=== PATIENT | male | born 1940 | race African-American/Black ===

== ENCOUNTER → 2016-10-29 | Outpatient (CLI) | payer OTHER ==
[~2016-10-29] VITALS: Ht 185.4 cm; Wt 70.1 kg
[~2016-10-29] MED LIST: CRESTOR40 MG PO; FLONASE 0.05%50 MCG NASAL; GLUCOTROL5 MG PO; KLOR-CON 1010 MEQ PO; NORCO 5-325 TA1 EACH PO; POTASSIUM20 PO; PRILOSEC 20 MG20 MG PO; PROAIR HFA8.5 GM; TRULICITY0.75 MG/0. SUBQ; VIAGRA100 MG PO; XANAX 0.5 MG0.5 MG PO
--- NOTE | ~2016-10-29 | HPC ---
[facility] [place] [address] PAIN MANAGEMENT CONSULTATION Name: KETTY LOZADA Room #: [facility] [id number] Admission: 10/29/16 Attend Phys: Pari Ryder MD Discharge: Date of : 40 Report #: [id number] THIS REPORT FOR: //name// CC: Agapito Ryder DATE OF SERVICE: 11/25/2016 CHIEF COMPLAINT: Pain in the low back with pain down into the right hip and foot. HISTORY OF PRESENT ILLNESS: The patient is a 75-year-old gentleman who has been referred to the pain clinic for evaluation. He states that he has had some problem with his back and legs since 2008. At this juncture, he is having very sharp pain in the lower portion of his back with pain radiating down into his right hip and went down into the right foot. Pain is made worse with changes in the weather as well as when he gets in and out of the bed. He notes that medications have been helpful. He describes his discomfort as steady, shooting, cramping, aching, throbbing, pounding, and tender. He rates it as an 8/10 today. He has not had back surgery. He denies any bowel or bladder dysfunction because of this. ALLERGIES: FLOMAX. MEDICATIONS: Glucotrol 5 mg b.i.d., Trulicity 0.75 mg/0.5 mg weekly, alprazolam 0.5 mg t.i.d., ProAir 8.5 mg, Flonase 0.05% nasal spray, 50 mcg daily 2 sprays, Crestor 40 mg daily, potassium 10 mEq, Prilosec 20 mg, potassium 20 mEq, Viagra 100 mcg p.r.n., [place] 5/325 one p.o. t.i.d. p.r.n. PAST MEDICAL HISTORY: Diabetes type 2, hypercholesterolemia, GI problems, asthma, tuberculosis, colon problems, stomach problems, joint disease/arthritis, prostate cancer in 2009, ulcers. PAST SURGICAL HISTORY: Eyes, stomach, hernia repair. SOCIAL HISTORY: He is retired. He has been off work for 9 months. Smokes 2 packs of cigarettes per month, has smoked for 30 years. Denies use of alcoholic beverages. He has 2 daughters. REVIEW OF SYSTEMS: Decreased appetite, fatigue, weakness, eye disease, glaucoma/cataracts, shortness of breath, frequent urination. PHYSICAL EXAMINATION: Blood pressure 136/91, pulse 78, respiratory rate 16, room air saturation 100, height 6 feet 1 inch, weight 154 pounds, BMI is 20. The patient has pain and discomfort which is radiating down the right leg. [address] [address] PAIN MANAGEMENT CONSULTATION Name: KETTY LOZADAWAYNE [id number] Admission: 10/29/16 Attend Phys: Pari Ryder MD Discharge: Date of : 40 Report #: [id number] Positive straight leg raise. The patient walks with an antalgic gait. Note some cramping, aching, has pain down into the right foot. He has not fallen in the last 3 months. IMPRESSION: 1. Lumbar radiculopathy, L4-L5 distribution on the right. 2. Type 2 diabetes, controlled with neuropathy. 3. Acute bronchitis history. 4. Right knee pain. 5. Chronic back pain. RECOMMENDATIONS: We discussed treatment options with the patient. Risks and benefits of an epidural steroid injection were discussed. A model was used to indicate the area of probable pathology. The patient elects to undergo treatment and will return on 11/03/2016 at which time an epidural steroid injection will be performed. We would like to thank you for letting us participate in his care. We hope he continues to improve. <ELECTRONICALLY SIGNED> By: Pari Ryder MD 11/26/16 0844 [id number] 0133 Pari Ryder MD /[facility]
[2016-10-29 09:07] VITALS: BP 136/91
== END | disposition home or self-care (01) ==
LOC: PAIN 06:55
DX: M54.16 Radiculopathy, lumbar region (principal); E11.40 Type 2 diabetes mellitus with diabetic neuropathy, unspecified; J20.9 Acute bronchitis, unspecified; G89.29 Other chronic pain; E78.00 Pure hypercholesterolemia, unspecified; J45.909 Unspecified asthma, uncomplicated; M19.90 Unspecified osteoarthritis, unspecified site; Z85.46 Personal history of malignant neoplasm of prostate; Z88.8 Allergy status to other drugs, medicaments and biological substances; F17.210 Nicotine dependence, cigarettes, uncomplicated

== ENCOUNTER → 2016-11-03 | Outpatient (CLI) | payer OTHER ==
[~2016-11-03] VITALS: Ht 185.4 cm; Wt 71.5 kg
--- NOTE | ~2016-11-03 | HPC ---
[facility] [address] [address] [place] [address] PAIN MANAGEMENT CONSULTATION Name: KETTY LOZADA Room #: REG Corey SalazarMarc#: [id number] Admission: 11/03/16 Attend Phys: Pari Ryder MD Discharge: Date of : 40 Report #: [id number] THIS REPORT FOR: //name// CC: Agapito Ryder DATE OF SERVICE: 11/03/2016 FOLLOWUP COMPLAINT: Here for the epidural steroid injection. FOLLOWUP HISTORY: The patient is a 75-year-old gentleman who has been seen in the pain clinic because of lumbar radicular pain with pain radiating down in his lower back to the right hip and down into his right foot. He continues to have pain and discomfort, which he describes as uncomfortable. He is experiencing shooting, cramping, aching pain. He rates it as a 9/10 at this juncture. He notes that it is worse during changes in the weather. He is not sure of anything that significantly alleviates the pain. PHYSICAL EXAMINATION: Blood pressure 152/72, pulse 80, respiratory rate 20, room air saturation 99%. Height 6 feet 1 inch, weight 157 pounds, BMI is 20. The patient has pain and discomfort, which is radiating down in the L5-S1 dermatomal distribution with the right leg to involve his foot. Notes sensory changes of numbness, weakness involving the right leg. IMPRESSION: 1. Lumbar radiculopathy involving the right leg, L5-S1 distribution. 2. Diabetes. 3. History of prostate cancer. 4. Asthma. 5. History of ulcers. RECOMMENDATIONS: We discussed treatment options with the patient. Risks and benefits of an epidural steroid injection, which could include but are not limited to infection, increased muscle soreness, headache, bleeding, muscle damage, nerve trauma. The patient elects to proceed. PROCEDURE NOTE: The patient was placed in the prone position. Fluoroscopy was used to identify the right L5-S1 paraspinal area. A 0.25% bupivacaine was infiltrated. A 17-gauge Tuohy with loss of resistance technique was used to gain access to the epidural space. There was no CSF, heme or paresthesia. Total of 80 mg Depo-Medrol, 40 mg triamcinolone and 2 mL of 0.25% bupivacaine was injected. The patient's pain decreased from 9 to 1 at the time of discharge. A total of 10 seconds fluoroscopy time was [place] [address] PAIN MANAGEMENT CONSULTATION Name: KETTY LOZADA Room #: REG CLCorey SalazarMarc#: [id number] Admission: 11/03/16 Attend Phys: Pari Ryder MD Discharge: Date of : 40 Report #: [id number] thank you for letting us participate in his care. We hope he continues to improve. <ELECTRONICALLY SIGNED> By: Pari Ryder MD 11/26/16 0846 1619 0406 Pari Ryder MD /[facility]
[2016-11-03 08:59] VITALS: BP 152/72
== END | disposition home or self-care (01) ==
LOC: PAIN 07:07
DX: M54.16 Radiculopathy, lumbar region (principal); E11.9 Type 2 diabetes mellitus without complications; J45.909 Unspecified asthma, uncomplicated; Z85.46 Personal history of malignant neoplasm of prostate; F17.200 Nicotine dependence, unspecified, uncomplicated

== ENCOUNTER → 2016-12-01 | Outpatient (CLI) | payer OTHER ==
[~2016-12-01] VITALS: Ht 185.4 cm; Wt 72.8 kg
--- NOTE | ~2016-12-01 | H ---
[facility] [place] [address] [address] HISTORY AND PHYSICAL Name: KETTY LOZADA Room #: REG RONDA SalazarMarc#: [id number] Admission: 12/01/16 Attend Phys: Pari Ryder MD Discharge: Date of : 40 Report #: [id number] THIS REPORT FOR: //name// CC: Agapito Ryder DATE OF SERVICE: 12/01/2016 FOLLOWUP COMPLAINT: Still having pain down the back of my leg, down into my right foot. HISTORY OF PRESENT ILLNESS: The patient is a 75-year-old gentleman who has been seen in the pain clinic because of lumbar radiculopathy. He has pain in the posterior portion of his right leg with radiation down into his right foot. He states that he has been told in the past that he has had some "pieces of bone" that are fallen down in the lower portion of his back and causing this pain. He has not had any complications from the procedure. He was scheduled to undergo an MRI; this was last week. He was unable to get the MRI because of difficulty with IV access. The patient felt that they had stuck him enough times and he left. PHYSICAL EXAMINATION: The patient continues to have pain and discomfort in the lower portion of his back with pain radiating down in the L5-S1 dermatomal distribution. Continues to rate his pain as probably an 8/10. IMPRESSION: 1. Lumbar radiculopathy in the L5-S1 dermatomal distribution on the right. 2. Diabetes. 3. Asthma. 4. Ulcers. 5. History of prostate cancer. 6. 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 7. Hernia repair in 2017. RECOMMENDATIONS: We discussed treatment options with the patient. At this juncture, I think it would be important to get an MRI to see what the structure is in the lower portion of his back. He will try to get an MRI in the near future. Hopefully, they are able to successfully get an IV without causing him too much problem. He will follow up in the pain clinic. We would like to thank you for letting us participate in his care. We hope he continues to improve. <ELECTRONICALLY SIGNED> By: Pari Ryder MD 12/03/16 0825 1245 1331 Pari Ryder MD /[facility]
[2016-12-01 09:53] VITALS: BP 143/71
== END ==
LOC: PAIN 07:32
DX: M54.16 Radiculopathy, lumbar region (principal); E11.9 Type 2 diabetes mellitus without complications; J45.909 Unspecified asthma, uncomplicated

== ENCOUNTER 2016-12-18 17:23 | Inpatient (IN) | payer OTHER ==
[~2016-12-18] VITALS: Ht 185.4 cm; Wt 77.1 kg
--- NOTE | ~2016-12-18 | HC ---
[facility] [place] [address] CONSULTATION Name: KETTY LOZADA Room #: 426-P ADM IN M.R.#: [id number] Admission: 12/18/16 Attend Phys: Richard Cisneros MD Discharge: Date of : 40 Report #: [id number] THIS REPORT FOR: //name// CC: Richard Murphy DATE OF SERVICE: 12/18/2016 REFERRING PROVIDER: Richard Cisneros MD. REASON FOR CONSULTATION: Abdominal pain. HISTORY OF PRESENT ILLNESS: The patient is a 75-year-old male who was transitioned to [facility] from [facility] secondary to left flank and lower abdominal pain with findings on CT scan of an obstructing yet left ureteral stone. The patient does have left-sided hydronephrosis secondary to this, but also found was dilated small bowel to the distal small bowel concerning for small-bowel obstruction. The patient does have a history of esophageal and gastric cancer status post open esophagectomy, partial gastrectomy with reconstruction in 1973 as well as prostate cancer status post prostatectomy in 2008. In addition, he underwent an open right inguinal hernia repair with mesh in the past few months as well. The patient denied any nausea or vomiting, has been tolerating p.o. intake with no obstructive symptoms as he has continued to pass flatus and have bowel movements. PAST MEDICAL HISTORY: Esophageal and gastric cancer status post reconstruction, diabetes, prostate cancer status post prostatectomy, anxiety, open right inguinal hernia repair, asthma, hypercholesterolemia, and GERD. MEDICATIONS: Viagra, potassium, Prilosec, Crestor, Flonase, albuterol, Xanax, dulaglutide, glipizide. ALLERGIES: FLOMAX. SOCIAL HISTORY: The patient smokes 1 pack per day and has done so for 35 years, has been drinking vodka recently and smoking marijuana. FAMILY HISTORY: Reviewed and noncontributory. REVIEW OF SYSTEMS: GENERAL: The patient denies nocturnal fevers or chills. HEENT: No change in vision, change in hearing. NECK: No swelling or difficulty swallowing. HEART: No chest pain or palpitations. LUNGS: No cough or shortness of breath. [facility] [address] [place] [address] CONSULTATION Name: KETTY LOZADA Room #: 426-P [facility] IN M.R.#: [id number] Admission: 12/18/16 Attend Phys: Richard Cisneros MD Discharge: Date of : 40 Report #: [id number] ABDOMEN: Left flank pain, but no nausea or vomiting. GENITOURINARY: Some dysuria, but no hematuria. ENDOCRINE: No polyuria or polydipsia. HEMATOLOGIC: No history of bleeding or easy bruising. EXTREMITIES: No history of weakness or limited range of motion. NEUROLOGIC: No history of syncope or near syncopal episodes. SKIN AND INTEGUMENT: No history of abnormal lesions or moles. PSYCHIATRIC: No history of anxiety or depression. PHYSICAL EXAMINATION: VITAL SIGNS: Temperature is 97.5, pulse 90, respirations 18, blood pressure 147/71. He stands 6 feet 1 inches tall and weighs 170 pounds. GENERAL: Alert and oriented, in no acute distress. HEENT: Normocephalic, atraumatic. Pupils equal, round, reactive to light. NECK: Supple, without lymphadenopathy. Trachea midline. HEART: Regular rate and rhythm. LUNGS: Clear to auscultation bilaterally. ABDOMEN: Soft, nondistended. He does have left-sided CVA tenderness. GENITOURINARY: Normal external male genitalia. EXTREMITIES: No clubbing, cyanosis or edema. NEUROLOGIC: Cranial nerves 2-12 are grossly intact. PSYCHIATRIC: Normal mood and affect. SKIN AND INTEGUMENT: No abnormal lesions or moles. LABORATORY AND X-RAY DATA: CBC shows white blood cell count of 8200, hemoglobin 13.8, platelets 251,000. He has a creatinine of 1.4. Liver function enzymes are normal. CT scan of the abdomen and pelvis shows an obstructing left ureteral stone with left hydronephrosis. There is also dilated small bowel; however, he has had an esophagectomy and gastrectomy with reconstruction and this may be normal for him, especially in light of no obstructive symptoms clinically. ASSESSMENT AND PLAN: A 75-year-old male with an obstructing left ureteral stone with left hydronephrosis and dilated small bowel that could be consistent with an ileus versus a distal small-bowel obstruction versus normal physiologic change after his esophagectomy and gastrectomy with reconstruction. The patient has no evidence of an obstructive process as he states he was tolerating regular diet, passing flatus and bowel movements throughout. At this time, it is prudent to keep him n.p.o. with IV fluid rehydration and await urology's evaluation for his obstructing ureteral stone, which may be causing a generalized ileus at this time. No need for immediate surgical intervention, although I will check a lactate just to be safe. I will perform serial abdominal exams and serial x-rays daily. [address] [address] CONSULTATION Name: KETTY LOZADA Room #: 426-P ADM IN M.R.#: [id number] Admission: 12/18/16 Attend Phys: Richard Cisneros MD Discharge: Date of : 40 Report #: [id number] I sincerely appreciate this consult. We will follow closely and leave any further recommendations in the patient's chart as appropriate. <ELECTRONICALLY SIGNED> By: Georgina Cheek MD, FACS 12/20/16 0658 0946 1852 Georgina Cheek MD, FACS /nt
[~2016-12-18 17:23] MED LIST changes: +AMITRIPTYLINE H10 M3 PO; +CIPRO500 MG PO; +FLAGYL 250 MG250 MG PO; +HYDROCODON-ACE1 EAC5 PO
[2016-12-18 18:52] VITALS: BP 152/41
[2016-12-18 20:30] VITALS: BP 147/71
[2016-12-18 21:49] LABS: ABSOLUTE NEUTROPHILS 6.6 thou/uL (1.4-8.2); BASOPHILS 0.5 % (0.0-2.0); EOSINOPHILS 0.8 % (0.0-3.0); HEMATOCRIT 41.9 % (42.0-52.0); HEMOGLOBIN 13.8 gm/dL (14.0-18.0); LYMPHOCYTES 12.2 % (24.0-44.0); MCH 29.2 pg (26.0-34.0); MCHC 32.9 g/dL (28.0-37.0); MCV 88.7 fL (80.0-100.0); MONOCYTES 5.9 % (1.0-8.0); PLATELET COUNT 251 thou/uL (150-400); POLYS 80.6 % (36.0-66.0); RBC 4.72 mil/uL (4.50-6.00); RDW 15.9 % (10.5-14.5); WBC 8.2 thou/uL (4.0-11.0)
[2016-12-18 22:08] LABS: ALKALINE PHOSPHATASE 69 U/L (46-116); ANION GAP 9 mmol/L (7-16); BUN 18 mg/dL (7-18); CHLORIDE 106 mmol/L (98-107); CHOLESTEROL 257 mg/dL (<200); CO2 26 mmol/L (21-32); CREATININE 1.4 mg/dL (0.7-1.3); GLUCOSE 147 mg/dL (74-106); HDL CHOLESTEROL 44 mg/dL (>40); LDL CHOLESTEROL 173 mg/dL (<100); POTASSIUM 4.1 mmol/L (3.5-5.1); SGOT 12 U/L (15-37); SGPT 17 U/L (30-65); SODIUM 141 mmol/L (136-145); TC:HDL 5.8 Ratio (Not establshd); TOTAL BILIRUBIN 0.5 mg/dL (<0.1-1.0); TOTAL PROTEIN 6.4 g/dL (6.4-8.2); TRIGLYCERIDE 203 mg/dL (<150); VLDL 41 mg/dL (<40)
[2016-12-18 22:10] LABS: MANUAL DIFF NO
[2016-12-18 22:13] LABS: CALCIUM 8.7 mg/dL (8.5-10.1)
[2016-12-19 04:30] VITALS: BP 151/85
[2016-12-19 07:55] VITALS: BP 132/85
[2016-12-19 16:00] VITALS: BP 131/83
[2016-12-19 16:38] LABS: CALCIUM 8.7 mg/dL (8.5-10.1); CREATININE 1.2 mg/dL (0.7-1.3)
[2016-12-19 17:22] LABS: URINE BILIRUBIN NEGATIVE (Negative); URINE BLOOD NEGATIVE (Negative); URINE COLOR YELLOW; URINE GLUCOSE-RANDOM* NEGATIVE (Negative); URINE KETONES NEGATIVE (Negative); URINE NITRITE NEGATIVE (Negative); URINE PROTEIN (DIPSTICK) NEGATIVE (Negative); URINE UROBILINOGEN 0.2 E.U./dl (0.2-1.0)
[2016-12-19 19:32] VITALS: BP 136/82
[2016-12-19 21:06] LABS: GLYCOHEMOGLOBIN (HGB A1C) 6.8 % (4.8-5.6)
[2016-12-20 03:43] VITALS: BP 141/81
[2016-12-20 04:35] LABS: ABSOLUTE NEUTROPHILS 3.1 thou/uL (1.4-8.2); BASOPHILS 0.5 % (0.0-2.0); EOSINOPHILS 1.1 % (0.0-3.0); HEMATOCRIT 38.1 % (42.0-52.0); HEMOGLOBIN 12.3 gm/dL (14.0-18.0); LYMPHOCYTES 22.7 % (24.0-44.0); MCHC 32.4 g/dL (28.0-37.0); MCV 89.5 fL (80.0-100.0); MONOCYTES 10.7 % (1.0-8.0); PLATELET COUNT 212 thou/uL (150-400); RBC 4.25 mil/uL (4.50-6.00); RDW 15.7 % (10.5-14.5); WBC 4.7 thou/uL (4.0-11.0)
[2016-12-20 04:36] LABS: MANUAL DIFF NO
[2016-12-20 04:50] LABS: CALCIUM 8.6 mg/dL (8.5-10.1); CREATININE 1.3 mg/dL (0.7-1.3)
[2016-12-20 08:26] VITALS: BP 144/81
== END 2016-12-20 13:45 | disposition left against medical advice (07) | DRG 694 ==
LOC: 4E 17:23
PROVIDERS: Internal Medicine Endocrinology, Diabetes & Metabolism; Physician Assistant; Surgery
PROC: 02HV33Z Insertion of Infusion Device into Superior Vena Cava, Percutaneous Approach (ICD-10-PCS; principal; 2016-12-18)
DX: N13.2 Hydronephrosis with renal and ureteral calculous obstruction (principal); E11.9 Type 2 diabetes mellitus without complications; F41.9 Anxiety disorder, unspecified; J45.909 Unspecified asthma, uncomplicated; E78.00 Pure hypercholesterolemia, unspecified; K21.9 Gastro-esophageal reflux disease without esophagitis; F17.210 Nicotine dependence, cigarettes, uncomplicated; Z85.028 Personal history of other malignant neoplasm of stomach; Z90.3 Acquired absence of stomach [part of]; Z85.01 Personal history of malignant neoplasm of esophagus; Z85.46 Personal history of malignant neoplasm of prostate; Z88.8 Allergy status to other drugs, medicaments and biological substances
CPT/HCPCS: 10084; 27000

== ENCOUNTER → 2016-12-21 | Outpatient (CLI) | payer OTHER ==
--- NOTE | ~2016-12-21 | EKG ---
[address] [address] ELECTROCARDIOGRAM REPORT Name: KETTY LOZADA [facility] [id number] Admission: 12/21/16 Attend Phys: Steven Morales MD Discharge: Date of : 40 Report #: [id number] THIS REPORT FOR: //name// [facility] Test Date: 2016-12-21 Test Time: 08:14:29 Pat Name: KETTY LOZADA Department: Room: Gender: Director [employer] Communications: ZOË : 1940 Requested By: Steven Morales Order Number: [id number] MD: Alcides Abbott Measurements Intervals Morton Rate: 87 P: 69 TN: 178 QRS: 9 QRSD: 93 T: -1 QT: 371 QTc: 447 Interpretive Statements Sinus rhythm Abnormal R-wave progression, early transition No previous ECG available for comparison Electronically Signed On 12-21-2016 9:11:36 GRAB OPERATOR by Alcides Abbott [email or web address] <ELECTRONICALLY SIGNED> By: Alcides Abbott MD, [facility] 12/21/16910 3 3 Alcides Abbott MD, [facility] /EPI
== END | disposition home or self-care (01) ==
LOC: MRI → LITH 07:33
DX: N20.0 Calculus of kidney (principal); Z98.890 Other specified postprocedural states

== ENCOUNTER → 2017-01-07 | Outpatient (CLI) | payer OTHER ==
[~2017-01-07] VITALS: Ht 185.4 cm; Wt 70.9 kg
[~2017-01-07] MED LIST changes: +ZITHROMAX500 MG PO
--- NOTE | ~2017-01-07 | HPC ---
[facility] [place] [address] [address] [place] [address] PAIN MANAGEMENT CONSULTATION Name: KETTY LOZADA Room #: REG Corey Yulisa#: [id number] Admission: 01/07/17 Attend Phys: Pari Ryder MD Discharge: Date of : 40 Report #: [id number] THIS REPORT FOR: //name// CC: Agapito Ryder DATE OF SERVICE: 01/07/2017 FOLLOWUP COMPLAINT: The medications are much more helpful. FOLLOWUP HISTORY: The patient is a 76-year-old gentleman who has been seen in the pain clinic because of low back pain with pain radiating down into his right leg. As you recall, he has undergone a number of lumbar epidural steroid injections. His pain persisted. He was provided hydrocodone 10 mg 1 p.o. b.i.d. and amitriptyline 10 mg at bedtime. He returns today indicating that his pain has improved significantly. He is able to engage in activities he was unable to before. He rates his pain as a 5/10. Taking these medications, he is able to be much more productive. He has had no complications from their use. No problem with orthostatic hypotension. PHYSICAL EXAMINATION: Blood pressure 125/55, respiratory rate 14, room air saturation ____, height 6 feet 1 inch, weight 156 pounds, BMI is 20. The patient's pulse is 71. Notes that the pain in the low back, right leg and right buttock and pain that was radiating down his foot has improved. IMPRESSION: 1. Exacerbation of diverticulitis, continues to be treated with antibiotics. 2. Renal stone. The patient has undergone treatment for removal of the stone with what sounds like laser therapy. 3. Diabetes. 4. Asthma. 5. History of ulcers. 6. History of prostate cancer. 7. History of hernia repair in 2006. 8. History of surgery in the esophagus in 1973. RECOMMENDATIONS: We discussed treatment options with the patient. He will continue with the current use of hydrocodone and Elavil. He will call us if he has any problems with his medications. We would like to thank you for letting us participate in his care. We hope he continues to improve. By: 1629 0502 Pari Ryder MD /[facility]
[2017-01-07 08:30] VITALS: BP 125/55
== END ==
LOC: PAIN 06:40
DX: K57.92 Diverticulitis of intestine, part unspecified, without perforation or abscess without bleeding (principal); E11.9 Type 2 diabetes mellitus without complications; J45.909 Unspecified asthma, uncomplicated; Z85.46 Personal history of malignant neoplasm of prostate; Z98.890 Other specified postprocedural states

== ENCOUNTER → 2017-02-04 | Outpatient (CLI) | payer OTHER ==
[~2017-02-04] VITALS: Ht 185.4 cm; Wt 71.2 kg
[~2017-02-04] MED LIST changes: +AMITRIPTYLINE H25 M2 PO; +BUSPIRONE HCL10 MG PO; +XANAX 0.5 MG0.5 M1 PO
--- NOTE | ~2017-02-04 | HPC ---
[facility] [address] [address] PAIN MANAGEMENT CONSULTATION Name: KETTY LOZADA Room #: REG RONDA Yulisa#: [id number] Admission: 02/04/17 Attend Phys: Pari Ryder MD Discharge: Date of : 40 Report #: [id number] THIS REPORT FOR: //name// CC: Agapito Ryder DATE OF SERVICE: 02/04/2017 FOLLOWUP COMPLAINT: "The medication is helping and I am not having any side effects." FOLLOWUP HISTORY: The patient is a 76-year-old gentleman who has been seen in the pain clinic because of lumbar radiculopathy. He underwent a series of epidural steroid injections. He is currently helped with his current medical management of hydrocodone 10/325 as well as use of the amitriptyline 25 mg at bedtime. He rates his pain as a 5/10. He has less pain getting in and out of bed. He does note that change in the weather can be problematic and worsens pain and discomfort. He has some pain in the lower right buttocks, right leg and still involving his left foot. Overall, he is able to do more things. He is more active. He states that he is keeping his medications in a guarded area. We discussed the possible complications of the use of opioid medications. They include possibility of tolerance as well as dependence. The patient does not feel that he is having any of these symptoms at this juncture and feels that his medications working well. He is not having any orthostatic changes. No real change in bowel or bladder function. ALLERGIES: FLOMAX. CURRENT MEDICATIONS: Hydrocodone 10/325 one p.o. b.i.d., amitriptyline 10 mg at bedtime, Zithromax 500 mg, Glucotrol 5 mg b.i.d., Trulicity 0.75 mg weekly, Xanax 0.5 mg t.i.d., albuterol inhaler 2 puffs p.r.n., Flonase 0.05% nasal spray, Crestor 40 mg daily, Prilosec 20 mg daily, potassium 20 mEq, Viagra p.r.n. PHYSICAL EXAMINATION: VITAL SIGNS: Blood pressure 133/73, pulse 84, respiratory rate 16, room air saturation 98%. Height 6 feet 1 inch, weight 157 pounds, BMI 20. HEENT: Unremarkable. NECK: Without adenopathy. HEART: Regular rate. ABDOMEN: Nontender. EXTREMITIES: Muscle strength +5/5 upper extremities bilaterally. The patient has some pain and discomfort in the right sciatic outflow tract. Notes some improvement in the pain, which was radiating down into his foot. [facility] [address] [place] [address] PAIN MANAGEMENT CONSULTATION Name: KETTY LOZADA Room #: REG CLCorey Márquez#: [id number] Admission: 02/04/17 Attend Phys: Pari Ryder MD Discharge: Date of : 40 Report #: [id number] IMPRESSION: 1. History of diverticulitis, continues to be treated with antibiotic. 2. Renal stones. 3. Diabetes. The patient states his blood sugars are stable. 4. Asthma. 5. History of ulcers. 6. History of prostate cancer. 7. History of hernia repair in 2006. 8. History of surgery in the esophagus in 1973. RECOMMENDATIONS: We discussed the use of his current medical regimen. We again reviewed the use of opioid medications. There are complications with their advantages. At this juncture, he is unable to take significant amount of aspirin type medication secondary to his GI history and history of ulcers. He feels that the amitriptyline is helpful, helps him sleep better, has less pain. He has not had any problems with 10 mg that he was taking at night. We will increase his dose from 20 mg at bedtime to 25 mg, a one 25 mg per night tab has been issued. The patient will call us if he has any problems with his medications. He has his pet dog with him. He states that service dog helps to keep his anxiety level down. We would like to thank you for letting us participate in his care. We hope he continues to improve. <ELECTRONICALLY SIGNED> By: Pari Ryder MD 02/16/17 0837 1038 0011 Pari Ryder MD /[facility]
[2017-02-04 08:02] VITALS: BP 133/73
== END ==
LOC: PAIN 07:08
DX: M54.16 Radiculopathy, lumbar region (principal); Z87.19 Personal history of other diseases of the digestive system; N20.0 Calculus of kidney; E11.9 Type 2 diabetes mellitus without complications; J45.909 Unspecified asthma, uncomplicated; M79.672 Pain in left foot; M79.604 Pain in right leg; Z85.46 Personal history of malignant neoplasm of prostate; Z98.890 Other specified postprocedural states

== ENCOUNTER → 2017-03-04 | Outpatient (CLI) | payer OTHER ==
[~2017-03-04] VITALS: Ht 185.4 cm; Wt 74.2 kg
--- NOTE | ~2017-03-04 | HPC ---
[facility] [place] [address] PAIN MANAGEMENT CONSULTATION Name: KETTY LOZADA Room #: REG RONDA Yulisa#: [id number] Admission: 03/04/17 Attend Phys: Pari Ryder MD Discharge: Date of : 40 Report #: [id number] THIS REPORT FOR: //name// CC: Agapito Ryder DATE OF SERVICE: 03/04/2017 FOLLOWUP COMPLAINT: Here for medication renewal. FOLLOWUP HISTORY: The patient is a 76-year-old gentleman who has been followed in the pain clinic because of pain in his right leg with pain in the buttocks and foot. The patient has been helped significantly with use of his current medications. He finds that hydrocodone 10/325 mg, Amaryl, amitriptyline 25 mg at bedtime has been quite helpful. As you recall, he has a history of anxiety. He does have a service dog that stays with him quite often. He feels that the dog continues to calm his nerves. He has used Xanax 0.5 mg 1 p.o. t.i.d. He states that his, Dr. Murphy, has suggested that he get his Xanax medication from pain clinic. We again discussed the use of hydrocodone. The patient feels that this medication has been much more beneficial than the epidural steroid injections at this juncture. He denies any complications from their use. He denies any withdrawal symptoms. ALLERGIES: Flomax. CURRENT MEDICATION REVIEW: Hydrocodone 10/325 mg one p.o. b.i.d., amitriptyline 25 mg 1 p.o. at bedtime, Zithromax 500 mg, Glucotrol 5 mg b.i.d, Trulicity 0.75 mg weekly, Xanax 0.5 mg t.i.d., albuterol inhaler 2 puffs p.r.n., Flomax 0.05% nasal spray, Crestor 40 mg daily, Prilosec 20 mg daily, potassium 20 mEq daily, and Viagra p.r.n. PAIN CLINIC ASSESSMENT: 1. History of osteoarthritis. The patient is not currently being treated for osteoarthritis or rheumatoid arthritis. 2. Pain intensity 09/16. 3. Fall risk: He has not fallen in the last 3 months. He does not need help standing or walking. 4. Blood thinners: The patient is not on blood thinners. 5. History of hypertension: The patient is not being treated for hypertension. 3. Opioid therapy greater than 6 weeks: The patient has an opioid contract which is signed. 4. Recreational drug use: The patient has stopped use of marijuana. The patient does not smoke tobacco. 5. Alcohol. The patient [place] [address] PAIN MANAGEMENT CONSULTATION Name: KETTY LOZADA Room #: REG CLI Martin.#: [id number] Admission: 03/04/17 Attend Phys: Pari Ryder MD Discharge: Date of : 40 Report #: [id number] PHYSICAL EXAMINATION: GENERAL: The patient is a well-developed, well-nourished black male. Appearance: Appears stated age. He is alert and oriented x 3. Affect is appropriate. VITAL SIGNS: Height 5 feet 1 inch tall, weight 163 pounds. Blood pressure 130/83, pulse 87, respiratory rate 16, room air saturation 100%. HEENT: Atraumatic. Hearing is adequate. Eyes: Extraocular eye muscles in place with accommodation. Denies nasal complaint. Oral membranes moist. NECK: Without JVD. LUNGS: Clear to auscultation. HEART: Regular rate. ABDOMEN: Nontender. EXTREMITIES: Upper Muscle strength is 5/5 for the major muscle groups. Deep tendon reflexes +1 at the biceps bilaterally. Lower muscle strength is judged to be 5/5. Notes some pain and discomfort with a positive right straight leg raise. No lower extremity edema. Does have some ____ pain with pain radiating down into his foot. IMPRESSION: 1. History of right lumbar radiculopathy, which has improved with current hydrocodone use. 2. Renal stones. 3. Diabetes. 4. Asthma. 5. History of ulcers. 6. Prostate cancer history. 7. History of hernia repair 2006. 9. History of esophagus surgery in 1973. RECOMMENDATIONS: We discussed the treatment plan. The patient feels that the opioid medications continue to be quite helpful. He states that he has stopped using marijuana. He has used this for quite a number of years in life. At this juncture, he is using medications as prescribed. He denies any withdrawal symptoms with use of hydrocodone. He does keep his medications in a guarded area. Denies any GI complaints at this juncture. He feels that the amitriptyline at 25 mg at bedtime has been helpful. The patient continues to feel anxious. He has run out of his Xanax 0.5 mg, which he takes t.i.d. We explained to the patient that most pain clinics do not prescribe Xanax. I have discussed the findings that sometimes medications like Xanax can decrease pain control. I would recommend that he continue to get this medication from his primary doctor, Dr. Agapito Murphy. He will call us if he has any problems. The patient still finds his service dog continues to help allay his anxieties and [facility] [address] [place] [address] PAIN MANAGEMENT CONSULTATION Name: SHREEFRANKLINKETTY Room #: REG RONDA Márquez#: [id number] Admission: 03/04/17 Attend Phys: Pari Ryder MD Discharge: Date of : 40 Report #: [id number] should continue to use his pet in this fashion. We would like to thank you for letting us participate in his care. We hope he continues to improve. <ELECTRONICALLY SIGNED> By: Pari Ryder MD 03/16/17 1007 [id number] Pari Ryder MD /PMT
[2017-03-04 08:30] VITALS: BP 130/83
== END ==
LOC: PAIN 08:19
DX: M79.604 Pain in right leg (principal); I10 Essential (primary) hypertension; Z87.39 Personal history of other diseases of the musculoskeletal system and connective tissue; Z72.89 Other problems related to lifestyle

== ENCOUNTER → 2017-03-30 | Outpatient (CLI) | payer OTHER ==
[~2017-03-30] VITALS: Ht 185.4 cm; Wt 75.3 kg
--- NOTE | ~2017-03-30 | HPC ---
[facility] [place] [address] PAIN MANAGEMENT CONSULTATION Name: KETTY LOZADA Room #: REG RONDA Márquez#: [id number] Admission: 03/30/17 Attend Phys: Pari Ryder MD Discharge: Date of : 40 Report #: [id number] THIS REPORT FOR: //name// CC: Agapito Ryder DATE OF SERVICE: 03/30/2017 FOLLOWUP COMPLAINT: Things are going pretty well and I have not been able to walk very much because of the snow and ice. FOLLOWUP HISTORY: The patient is a 76-year-old gentleman who has been followed in the pain clinic because of right leg pain. He has pain down into his buttocks. He has noted some increased pain and discomfort in the lower portion of his leg. He feels that he may be experiencing more discomfort secondary to his inability to continue to be active. It has been very cold. It has been rainy and snow has been on the roads. His usual walking past has been problematic and therefore he has been inside. He has continued to go to places like [facility] to walk. He continues to use his comfort dog. He has not been able to see his primary physician. He finds that the anxiety medication continues to help control his nerves. He states when he sees Dr. Altman, again he will then asked him to reestablish use of Xanax. We have explained to him the most pain physicians do not write for Xanax or those types of medication. They can decrease the amount of serotonin. This could have some adverse effects on pain control. He denies any bowel or bladder dysfunctions. Has had no new complaints. Still has pain and discomfort, which radiates down into his right leg. His medications continue to help with this discomfort. He states that he is not having any problems with mentation. Keeps his medications in a guarded area. He is aware of the concerned of opioids in the media. States that he still does not feel that these medications are causing him any problems. In fact they able him to be more active and in more control of his life. ALLERGIES: FLOMAX. MEDICATIONS: Review of current medications: Continued use of hydrocodone 10/325 1 p.o. b.i.d., amitriptyline 25 mg 1 p.o. at bedtime, Zithromax 500 mg, Glucotrol 5 mg b.i.d., Trulicity 0.75 mg weekly, Xanax 0.5 mg t.i.d., albuterol inhaler 2 puffs p.r.n., Flomax 0.05% nasal spray, Crestor 40 mg daily, Prilosec 20 mg daily, potassium 20 mEq daily, and Viagra p.r.n. PAIN CLINIC ASSESSMENT: 1. History of osteoarthritis. The patient is currently not being treated for osteoarthritis or rheumatoid arthritis. 2. Pain intensity. The patient rates his pain as an 8/6. 3. Height 6 feet 1 inch, weight 166 pounds, BMI is 29.1[place] [address] PAIN MANAGEMENT CONSULTATION Name: KETYT LOZADA Room #: REG CLI Yulisa#: [id number] Admission: 03/30/17 Attend Phys: Pari Ryder MD Discharge: Date of : 40 Report #: [id number] 4. VITAL SIGNS: Blood pressure 139/79, pulse 94, respiratory rate 15, room air saturation is 100%. 4. Fall risk. The patient has not fallen. He has made sure that he stays off of the icy surfaces. 5. Blood thinner. The patient does not using a blood thinner. 6. History of hypertension. The patient is not being treated for hypertension. 7. Opioid therapy greater than 6 weeks. The patient does have a contract with the pain clinic, which was signed on 02/04/2017. 8. Risk assessment tool for opioid therapy. 9. Functional assessment tool 40/70 in regards to general activity, mood, walking ability, work, relationships with others, sleep, enjoyment of life. 10. Recreational drug use. The patient denies use of marijuana at this juncture, has stopped use of this. His pain is improved, so he does not need it. 11. The patient denies use of tobacco. 12. Alcohol The patient denies use of alcoholic beverages. PHYSICAL EXAMINATION: GENERAL: The patient is a well-developed, well-nourished black male. The patient appears stated age. He is alert and oriented x 3. Affect is appropriate. Vital signs as listed above. HEENT: Normocephalic, atraumatic. Hearing is adequate. I saw her nonicteric with accommodation. Extraocular muscles intact. No nasal complaints. Oral membranes are moist. NECK: Without JVD. LUNGS: Clear to auscultation. HEART: Regular rate. ABDOMEN: Nontender. EXTREMITIES: Upper extremities. Muscle strength 5/5 in the major muscle groups. Deep tendon reflexes are +1 at the biceps bilaterally. Lower muscle strength is judged to be 5/5. The patient does note some pain and discomfort and has a positive straight leg raise. No lower extremity edema. IMPRESSION: 1. History of lumbar radicular pain, which has improved with current medical use of complex medical management using opioids. 2. Renal stones. 3. Diabetes. 4. Asthma. 5. History of ulcers. 6. Prostate cancer history. 7. History of hernia repair in 2006. 8. Distant history of esophageal surgery in 1973. RECOMMENDATIONS: We discussed treatment options with the patient. At this [facility] [address] [place] [address] PAIN MANAGEMENT CONSULTATION Name: KETTY LOZADA Room #: REG [facility] Martin.#: [id number] Admission: 03/30/17 Attend Phys: Pari Ryder MD Discharge: Date of : 40 Report #: [id number] juncture, we will continue with his opioid medications. He states that he continues to refrain from use of marijuana. He had uses quite a number of years in life. At this juncture, feels that things are going reasonably well and does not use it. He would like to continue with Xanax. He finds that this medication is helpful in keeping his mood moderate. He continues to work and live with his dog, which is able to keep his anxiety decreased. The patient will follow up with Dr. Altman, for long-term dispensation of Xanax and its use. We would like to thank you for letting us participate in his care. We hope he continues to improve. <ELECTRONICALLY SIGNED> By: Pari Ryder MD 04/20/17 1429 [id number] Pari Ryder MD /PMT
[2017-03-30 09:09] VITALS: BP 139/79
== END ==
LOC: PAIN 06:42
DX: M54.16 Radiculopathy, lumbar region (principal); N20.0 Calculus of kidney; E11.9 Type 2 diabetes mellitus without complications; J45.909 Unspecified asthma, uncomplicated; F11.90 Opioid use, unspecified, uncomplicated; Z98.890 Other specified postprocedural states; Z85.46 Personal history of malignant neoplasm of prostate; Z88.8 Allergy status to other drugs, medicaments and biological substances

== ENCOUNTER → 2017-04-27 | Outpatient (CLI) | payer OTHER ==
[~2017-04-27] VITALS: Ht 185.4 cm; Wt 76.2 kg
[~2017-04-27] MED LIST changes: -BUSPIRONE HCL10 MG PO
[2017-04-27 08:37] VITALS: BP 116/82
== END ==
LOC: PAIN 06:39
DX: M54.5 Low back pain (principal); M79.604 Pain in right leg; M19.90 Unspecified osteoarthritis, unspecified site; I10 Essential (primary) hypertension; Z79.891 Long term (current) use of opiate analgesic

== ENCOUNTER → 2017-05-25 | Outpatient (CLI) | payer OTHER ==
[~2017-05-25] VITALS: Ht 185.4 cm; Wt 77.6 kg
[~2017-05-25] MED LIST changes: +BUSPIRONE HCL10 MG PO
--- NOTE | ~2017-05-25 | HPC ---
[facility] [address] [place] [address] PAIN MANAGEMENT CONSULTATION Name: KETTY LOZADA Room #: REG Corey Salazar.#: [id number] Admission: 05/25/17 Attend Phys: Pari Ryder MD Discharge: Date of : 40 Report #: [id number] THIS REPORT FOR: //name// CC: Agapito Ryder DATE OF SERVICE: 05/25/2017 FOLLOWUP COMPLAINT: Things are going well. He have returned for the medication. FOLLOWUP HISTORY: The patient is a 76-year-old gentleman, who has been followed in the Pain Clinic because of chronic pain involving his right leg. He has undergone epidural steroid injections. He finds that the medications have been helpful. Finds that his opioid medications enable him to engage in activities of daily living. He would not be able to without their use. He feels that his medications are working well. He continues to find Ignacio in his dog. This is a service dog, helps him maintain comfort and remain calm. Feels that the Xanax medication continues to be helpful. Has noted some changes when he stoop up, felt a little bit lightheaded, has not fallen. ALLERGIES: FLOMAX. CURRENT MEDICATIONS: Hydrocodone 10/325 one p.o. b.i.d., amitriptyline 25 mg 1 p.o. every day, Zithromax 500 mg, Glucotrol 5 mg b.i.d., Trulicity 0.75 mg, Xanax 0.5 mg t.i.d., albuterol inhaler 2 puffs p.r.n., Flomax 0.05 nasal spray, Crestor 40 mg, Prilosec 20 mg, potassium 20 mEq, and Viagra p.r.n. PAIN ASSESSMENT: 1. The patient is not currently treated for osteoarthritis. 2. Height 6 feet 1 inch. Weight 170 pounds, BMI 22. 3. VITAL SIGNS: Blood pressure 143/80, heart rate 78, going to a standing position 133/75, heart rate 81, saturations 100%. Pain intensity is a 6/10. 4. Fall risk. The patient has not fallen in the last 3 months. He has noted some lightheadedness when he gets up. The patient was placed in the supine position. 5. Blood thinner. The patient is not on a blood thinner. 6. History of hypertension. The patient is not being treated for hypertension. 7. Opioid therapy. The patient has been on opioid therapy regimen from the Pain Clinic. 8. Risk SK assessment tool 0 out of 3, which is low risk. 9. Functional assessment tool - showing some moderate problems with pain and discomfort affecting his activities of daily living. 10. Recreational drug use. The patient denies using recreational drug use at this time. [address] [address] PAIN MANAGEMENT CONSULTATION Name: KETTY LOZADA Room #: [facility] [id number] Admission: 05/25/17 Attend Phys: Pari Ryder MD Discharge: Date of : 40 Report #: [id number] 11. Tobacco. Current tobacco smoker on a daily basis. Three cigarettes per day. 12. Alcohol. Denies use of alcoholic beverages. PHYSICAL EXAMINATION: GENERAL: The patient is a well-developed black male. He appears his stated age. He is alert and oriented. He is restful. His dog is with him. Affect is appropriate. HEENT: Normocephalic, atraumatic. Extraocular muscles intact. Sclerae nonicteric. Mucous membranes are moist. Hearing within normal limits. NECK: No JVD. Good range of motion. LUNGS: Clear to auscultation without rhonchi. HEART: Regular rate. ABDOMEN: Nontender. EXTREMITIES: No problem with his upper extremities in regards to muscle strength with his 5/5 with normal sensory exam. The patient has some pain and discomfort in his lower back with some pain that radiates down into the L5-S1 distribution and rates his pain as a 6/10 at this juncture. IMPRESSION: 1. History of lumbar radicular pain, which is improved with current medical regimen and complex medical regimen using opioids. 2. Renal stones. 3. Diabetes. 4. Asthma. 5. History of ulcers. 6. Prostate cancer. 7. History of hernia repair in 2006. 8. Distant history of esophageal surgery in 1973. RECOMMENDATIONS: We discussed the treatment options with the patient. It appears that things are going reasonably well. He notes that there is less anxiety with his dog. States that he will continue to work with Dr. Murphy who will start in the future writing for Xanax medications. He will continue to exercise as much as possible. He will call us if he has any problems with his medications. He is trying to stop smoking. He will call us if he has any problem with his medications. We would like to thank you for letting us participate in his care. We hope he continues to improve. <ELECTRONICALLY SIGNED> By: Pari Ryder MD 06/08/17 0825 [id number] Pari Ryder MD /nt
[2017-05-25 08:33] VITALS: BP 144/86
== END ==
LOC: PAIN 06:57
DX: E11.9 Type 2 diabetes mellitus without complications (principal); J45.909 Unspecified asthma, uncomplicated; N20.0 Calculus of kidney; G89.29 Other chronic pain; Z79.899 Other long term (current) drug therapy

== ENCOUNTER → 2017-07-22 | Outpatient (CLI) | payer OTHER ==
[~2017-07-22] VITALS: Ht 185.4 cm; Wt 74.5 kg
--- NOTE | ~2017-07-22 | HPC ---
[facility] [place] [address] PAIN MANAGEMENT CONSULTATION Name: KETTY LOZADA Room #: REG RONDA Márquez#: [id number] Admission: 07/22/17 Attend Phys: Pari Ryder MD Discharge: Date of : 40 Report #: [id number] THIS REPORT FOR: //name// CC: Agapito Ryder DATE OF SERVICE: 07/22/2017 FOLLOWUP COMPLAINT: "I have been sleeping much better. I think I have less stress because my sister is no longer suffering in [place]. FOLLOWUP HISTORY: The patient is a 76-year-old gentleman, who has been followed in the pain clinic, because of chronic pain involving his right leg. He feels his medications are helpful. Overall, he feels like he is sleeping better. He now takes the Elavil medication about every other night. Finds that he is able to nap during the day. Overall, he is feeling much better. He feels that his sister is at peace. He feels much more peaceful. He and his family members are going to go to [place] today. His dog (is with him). Overall, things are going well. He would like to continue with his medications. He is having no complications with their use. He is taking it as prescribed. Able to engage in life with much less discomfort with use of his medications. He feels that his sensorium is clear. Feels that the Xanax medication continues to be helpful in maintaining a good mood. Feels that his service dog (continues to be a great comfort). ALLERGIES: FLOMAX. CURRENT MEDICATIONS: Hydrocodone 10/325 one p.o. b.i.d., amitriptyline 25 mg daily, Zithromax 500 mg, Glucotrol 5 mg b.i.d., Trulicity 0.75 mg, Xanax 0.5 mg t.i.d., albuterol inhaler 2 puffs p.r.n., Flonase 0.05 nasal spray, Crestor 40 mg, Prilosec 20 mg, potassium 20 mEq, Viagra p.r.n. PAIN CLINIC ASSESSMENT: 1. The patient is not being treated for rheumatoid arthritis. Has some osteoarthritic changes in his low back, which responsible for the lumbar radicular pain. 2. Height 6 feet 1 inch, weight 164 pounds, BMI is 21.7. 3. Vital Signs: Blood pressure 133/84, pulse 81, respiratory rate 20, room air saturation 100. 4. Pain intensity 8/10. 5. Fall risk. The patient has not fallen in the last 3 months. 6. Blood thinner. The patient is not on a blood thinning medication. 7. Hypertension. The patient is not being treated for hypertension. 8. Opioid medications greater than 6 weeks. The patient is on an opioid contract with the pain clinic and gets his opioid medications from one source. 9. Risk assessment tool 0/3 low risk for opioid use. [address] [address] PAIN MANAGEMENT CONSULTATION Name: KETTY LOZADA Room #: REG RONDA Márquez#: [id number] Admission: 07/22/17 Attend Phys: Pari Ryder MD Discharge: Date of : 40 Report #: [id number] 10. Functional assessment tool showing moderate problems with activities of daily living secondary to chronic pain. 11. Tobacco: The patient denies use of tobacco. 12. Recreational drugs. Denies use of recreational drugs. 13. Alcohol: The patient denies use of alcoholic beverages on a regular basis. PHYSICAL EXAMINATION: GENERAL: The patient is a well-developed, well-nourished black male. He appears his stated age. He appears alert and oriented. He appears restful. Speech is fluent. His service dog (is with him). He has ____ outfit. HEENT: Normocephalic. Extraocular eye muscles intact. The patient has dark glasses. Mucous membranes are moist. Hearing is within normal limits. The patient is on dark glasses secondary to history of light sensitivity since his eye surgery. NECK: No JVD or bruits. Good range of motion. HEART: S1, S2. LUNGS: Clear to auscultation without rhonchi or wheezing. ABDOMEN: Nontender. EXTREMITIES: Upper extremities, judged to be 5/5 for the major muscle groups. MUSCULOSKELETAL: Without significant kyphosis, scoliosis or lordosis. The patient continues to have some discomfort in the L5-S1 distribution down into his left leg. IMPRESSION: 1. History of lumbar radiculopathy, which is improved with current medical regimen. 2. Chronic complex medical regimen using opioid medications. 3. History of renal stone. 4. History of diabetes. 5. Asthma. 6. History of ulcers. 7. Prostate cancer. 8. History of hernia repair in 2006. 9. Distant history of esophageal surgery in 1973. RECOMMENDATIONS: We discussed treatment options with the patient. At this juncture, he finds his medications are helpful. He is taking them as prescribed. Feels that he is getting about 7 hours of sleep per night. Overall, this is the best he has felt in a long time. He continues to engage with his family members. He is going to pick and shovel man his sister and another relative and they are going to go to [place] today. He is happy about this. He finds that the Xanax medication is helpful. Feels that he does need to take the Elavils as much at bedtime. Takes it more every other night rather than on a nightly basis because of his improved restful since. We will continue with his medications. He will call us if he has any problem with his medications. [facility] [address] [place] [address] PAIN MANAGEMENT CONSULTATION Name: KETTY LOZADA Room #: REG CLI [facility].#: [id number] Admission: 07/22/17 Attend Phys: Pari Ryder MD Discharge: Date of : 40 Report #: [id number] We would like to thank you for letting us participate in his care. We hope he continues to improve. By: 0931 1023 Pari Ryder MD /don
[2017-07-22 08:41] VITALS: BP 133/83
== END ==
LOC: PAIN 06:45
DX: C61 Malignant neoplasm of prostate (principal); J45.909 Unspecified asthma, uncomplicated; G89.29 Other chronic pain; Z79.891 Long term (current) use of opiate analgesic

== ENCOUNTER → 2017-08-26 | Outpatient (CLI) | payer OTHER ==
[~2017-08-26] VITALS: Ht 185.4 cm; Wt 72.2 kg
--- NOTE | ~2017-08-26 | HPC ---
[facility] [address] [place] [address] PAIN MANAGEMENT CONSULTATION Name: KETTY LOZADA Room #: REG RONDA Márquez#: [id number] Admission: 08/26/17 Attend Phys: Pari Ryder MD Discharge: Date of : 40 Report #: [id number] THIS REPORT FOR: //name// CC: Agapito Ryder DATE OF SERVICE: 08/26/2017 FOLLOWUP COMPLAINT: "I had 6 teeth pulled last week." FOLLOWUP HISTORY: The patient is a 76-year-old gentleman who has been followed in the pain clinic. As you recall, he has pain and discomfort involving his right leg. He suffers from lumbar radiculopathy. He feels that overall things continue to be working well with his current medication regimen of Elavil, Zanaflex and has had no problems with these medications. He has returned today for renewal of his medications. Overall, he feels that things are going reasonably well. The patient states that he has been walking his dog. He has had refrained from this because of the heat. He continues to get as much exercise as possible. The patient had 6 teeth pulled last week. States that because of his diabetes, he returned to his dentist's office. He was "checked out." Things seem to be healing well. The patient did have some decreased hearing after the excision of the teeth. His hearing has returned to normal. He continues to have some problems with photophobia. He is wearing dark glasses. He is scheduled to get some progressive lenses, which will be helpful. ALLERGIES: FOSAMAX. MEDICATIONS: Hydrocodone 10/325 one p.o. b.i.d., amitriptyline 10 mg at bedtime, Zithromax 500 mg, Glucotrol 5 mg b.i.d., Trulicity 0.75 mg, Xanax 0.5 mg t.i.d., albuterol inhaler 2 puffs p.r.n., Flonase 0.05 nasal spray, Crestor 10 mg, Prilosec 20 mg, potassium 20 mEq, Viagra p.r.n. PAIN CLINIC ASSESSMENT: 1. The patient has not been treated for rheumatoid arthritis. 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 2. Height 6 feet 1 inch, weight is 159 pounds, BMI is 21. 3. Vital signs: Blood pressure 137/80, pulse 78, respiratory rate 16, room air saturations 100%. 4. Pain intensity 07/17. 5. Fall risk. The patient has not fallen in the last 3 months. 6. Blood thinner. The patient is on a blood thinning medication. 7. History of hypertension. The patient has not been treated for hypertension. 8. Opioid therapy greater than 6 weeks. The [place] [address] PAIN MANAGEMENT CONSULTATION Name: KETTY LOZADA Room #: REG CLI Alejandro.Valerie.#: [id number] Admission: 08/26/17 Attend Phys: Pari Ryder MD Discharge: Date of : 40 Report #: [id number] [facility]. 9. Risk assessment tool, low, 0/3 for use of opioids. 10. Functional assessment tool, . 11. Recreational drug use. The patient denies his recreational drugs. 12. Tobacco use. The patient denies use of tobacco. 13. Alcohol. The patient denies frequent use of alcoholic medications. PHYSICAL EXAMINATION: GENERAL: The patient is a well-developed, well-nourished black male. He is appropriate. Speech is fluent. Appearance is calm. The patient has his service dog with him. HEENT: Normocephalic, atraumatic. Extraocular eye muscles intact. The patient is wearing dark glasses. Mucous membranes are moist. Hearing is within normal limits. The patient did have some decreased hearing after excision of teeth which has returned at this juncture. NECK: No JVD or bruits. Good range of motion. HEART: Regular rate, S1, S2. LUNGS: Clear to auscultation without rhonchi or wheezing. ABDOMEN: Nontender. EXTREMITIES: Upper extremity, judged to be 5/5 for the major muscle groups. MUSCULOSKELETAL: Without kyphosis, scoliosis or lordosis. The patient does have some discomfort in the L5-S1 distribution down to his left leg. IMPRESSION: 1. History of lumbar radiculopathy, which improved with current medication regimen. 2. Chronic complex medical regimen using opioid therapy. 3. History of renal ____. 4. History of diabetes. 5. History of asthma. 6. History of ulcers. 7. Prostate cancer. 8. History of hernia repair in 2006. 9. Distant history of esophageal surgery in 1973. RECOMMENDATIONS: We discussed treatment option with the patient. We will continue with his current medication regimen. He will continue with his medication and call us if he has any concerns. States that he is going to have his upper and lower dentures remade in the near future. He will follow up and call us if he has any concerns about his medications. We would like to thank you for letting us participate in his care. We hope he continues to improve. By: [id number] MD cody Wisdom
[2017-08-26 08:25] VITALS: BP 137/80
== END ==
LOC: PAIN 06:48
DX: M54.16 Radiculopathy, lumbar region (principal); M79.604 Pain in right leg; C61 Malignant neoplasm of prostate; Z79.891 Long term (current) use of opiate analgesic

== ENCOUNTER → 2017-09-28 | Outpatient (CLI) | payer OTHER ==
[~2017-09-28] VITALS: Ht 185.4 cm; Wt 73.0 kg
--- NOTE | ~2017-09-28 | HPC ---
[place] [address] PAIN MANAGEMENT CONSULTATION Name: KETTY LOZADA Room #: REG RONDA Yulisa#: [id number] Admission: 09/28/17 Attend Phys: Pari Ryder MD Discharge: Date of : 40 Report #: [id number] THIS REPORT FOR: //name// CC: Agapito Ryder DATE OF SERVICE: 09/28/2017 FOLLOWUP COMPLAINT: "Things are going reasonably well. I have my 6 teeth on the bottom removed. I am still eating soup." FOLLOWUP HISTORY: The patient is a 76-year-old gentleman who has been followed in the Pain Clinic because of right leg pain. He continues to have pain and discomfort. He finds that his medications are helpful. He is using Elavil at night. He has not had any trauma since we saw him last. He rates his pain as 3-4/10. Does impact his ability to engage in activities of daily living. He notes that the pain is exacerbated by standing. It improves his comfort level by sitting, elevating his leg. He has noted some muscle spasms and describes them as sharp. Pain radiates down into his right leg and involves his foot. The patient feels that his medications are working reasonably well. He is taking them as prescribed. He is aware of the possible complications of opioid use that they may not become as effective as time goes by secondary to tolerance. ALLERGIES: FLOMAX. CURRENT MEDICATIONS: Hydrocodone 10/325 one p.o. b.i.d., amitriptyline 25 mg daily, Zithromax 500 mg, Glucotrol 5 mg b.i.d., Trulicity 0.75 mg, Xanax 0.5 mg t.i.d., albuterol inhaler 2 puffs p.r.n., Flonase 0.05 nasal spray, Crestor 40 mg, Prilosec 20 mg, potassium 20 mEq, Viagra p.r.n. PAIN CLINIC ASSESSMENT: 1. The patient is not being treated for rheumatoid arthritis. He has some osteoarthritic changes in his low back. He has lumbar radicular pain. 2. Height 6 feet 1 inches. Weight 161 pounds, BMI is 21. 3. Vital signs: Blood pressure 145/80, heart rate 80, respiratory rate 14, room air saturation 98%. 4. Pain intensity -05/17. 5. Fall risk. The patient has not fallen in the last 3 months. 6. Blood thinner. The patient is not on a blood thinning medication. 7. History of hypertension. The patient is not being treated for hypertension. 8. Opioid therapy greater than 6 weeks. The patient receives his medication from [facility]. 9. Risk assessment low and use of opioid medication. 10. Functional assessment tool . 11. Recreational drug use. The patient denies use of recreational drugs. [address] [address] PAIN MANAGEMENT CONSULTATION Name: KETTY LOZADA Room #: REG RONDA Márquez#: [id number] Admission: 09/28/17 Attend Phys: Pari Ryder MD Discharge: Date of : 40 Report #: [id number] 12. Tobacco: The patient is currently a smoker. 13. Alcohol: The patient denies frequent alcohol use. PHYSICAL EXAMINATION: GENERAL: The patient is a well-developed, well-nourished black male. He appears his stated age. He is alert and oriented. He appears restful. Speech is fluent. Dog is present. Dog is wearing another of her outfits. HEENT: Normocephalic, atraumatic. Extraocular muscles intact. Sclerae is nonicteric. Mucous membranes are moist. The patient is not wearing his dark glasses today. NECK: No JVD or bruits. Good range of motion. HEART: Normal S1, S2. LUNGS: Clear to auscultation without rhonchi or rales. ABDOMEN: Nontender. EXTREMITIES: Upper extremities judged to be 5/5 without neurological changes. MUSCULOSKELETAL: Without significant kyphosis, scoliosis, or lordosis. The patient has pain and discomfort, which continues to be problematic in the L5-S1 distribution, which radiates down into his left leg and involving his foot. IMPRESSION: 1. History of lumbar radiculopathy, which is improved with his current medical regimen. 2. Chronic complex medical regimen using opioid medication. 3. History of renal stone. 4. History of diabetes. 5. Asthma. 6. Recent removal of lower teeth and difficulty eating solids. 7. History of ulcers. 8. History of prostate cancer. 9. Hernia repair in 2006. 10. Distant esophageal surgery in 1973. RECOMMENDATIONS: We discussed treatment options with the patient. Risks and benefits of his medications were discussed. He feels that they are continuing to be helpful. He does not have any problem with the medications. He is taking the medications as prescribed. He keeps his medications in a controlled environment. He will follow up in the future as needed. We would like to thank you for letting us participate in his care. A script for his medications of Xanax 0.5 mg t.i.d., 90 tabs; Elavil 10 mg 2 tablets at bedtime, and [place] 10/325, 60 tablets was dispensed. By: [id number] MD cody Wisdom
[2017-09-28 08:02] VITALS: BP 145/89
== END ==
LOC: PAIN 07:22
DX: M54.16 Radiculopathy, lumbar region (principal); E11.9 Type 2 diabetes mellitus without complications; G89.29 Other chronic pain; Z85.46 Personal history of malignant neoplasm of prostate; Z79.891 Long term (current) use of opiate analgesic

== ENCOUNTER → 2017-11-23 | Outpatient (CLI) | payer OTHER ==
[~2017-11-23] VITALS: Ht 185.4 cm; Wt 73.9 kg
--- NOTE | ~2017-11-23 | HPC ---
[facility] [address] [address] PAIN MANAGEMENT CONSULTATION Name: KETTY LOZADA Room #: REG Corey Martin.#: [id number] Admission: 11/23/17 Attend Phys: Pari Ryder MD Discharge: Date of : 40 Report #: [id number] THIS REPORT FOR: //name// CC: Agapito Ryder DATE OF SERVICE: 11/23/2017 CHIEF COMPLAINT: "Things are going pretty good. I am sleeping better. I have a routine in place." FOLLOWUP HISTORY: The patient is a 76-year-old gentleman who has been followed in the Pain Clinic because of chronic pain involving his right leg. Still has pain and discomfort that radiates down into his left leg. Overall, he feels that things are going better. He has now adopted a more routine schedule. States he goes to bed at 9:30 and gets about 7 hours of sleep at night. Feels that he no longer needs the sleep aids. He feels that his medications are working reasonably well. He does note that his dentures are not ready yet, but he feels that his "gums have toughened up during the course." He is able to eat apples and more variety of food. He is no longer eating soup. He overall feels that things are going reasonably well. His dog is doing well. Noted some changes in pain in regards to the weather change from the 60s to 28 degrees few days ago. He has returned today. He feels like his medications are working reasonably well. Overall, he rates his pain as an 8/10 today. ALLERGIES: FLOMAX. CURRENT MEDICATIONS: Hydrocodone 10/325 one p.o. b.i.d., Zithromax 500 mg, Glucotrol 5 mg b.i.d., Trulicity 0.75 mg, albuterol inhaler 2 puffs p.r.n., Flonase 0.05 nasal spray, Crestor 40 mg, Prilosec 20 mg, potassium 20 mEq, Viagra p.r.n. PAIN CLINIC ASSESSMENT AND PQRS: 1. The patient is not being treated for rheumatoid arthritis. He does have some osteoarthritic changes in his low back area. 2. Height 6 feet 1 inch, weight 163 pounds, BMI is 21.5. 3. Vital signs: Blood pressure 136/83, respiratory rate 16, room air saturation 97%. 4. Pain intensity: 8/10. 5. Fall risk: The patient has not fallen in the last 3 months. 6. Blood thinner: The patient is not on a blood thinning medication. 7. Hypertension: The patient is not being treated for hypertension. 8. Opioid therapy greater than 6 weeks: The patient is receiving medication from [facility] through [facility]. 9. Risk assessment tool: Low 0/3 [place] [address] PAIN MANAGEMENT CONSULTATION Name: KETTY LOZADA Room #: REG CL Yulisa#: [id number] Admission: 11/23/17 Attend Phys: Pari Ryder MD Discharge: Date of : 40 Report #: [id number] 10. Functional assessment tool: . 11. Recreational drug use: The patient denies use of recreational drugs. 12. Tobacco: The patient denies use of tobacco. 13. Alcohol: The patient denies frequent use of alcoholic beverages. PHYSICAL EXAMINATION: GENERAL: The patient is a well-developed, well-nourished black male. He appears his stated age. He is alert and oriented x 3. He does seem calm. Speech is fluent. He has his (dog) with him. HEENT: Normocephalic, atraumatic. Extraocular eye muscles intact. Sclerae nonicteric. Mucous membranes are moist. The patient feels his lower jaw has healed up better. He does not have his lower plate yet. NECK: Without JVD or bruits. Good range of motion. HEART: Regular rate. S1 and S2. LUNGS: Clear to auscultation without rhonchi or rales. ABDOMEN: Nontender. EXTREMITIES: Upper extremity muscle strength is judged to be 5/5 without neurological change. MUSCULOSKELETAL: Without kyphosis, scoliosis or lordosis. The patient continues to have some pain in the low back area. He has pain that radiates down into his left leg involving his foot. IMPRESSION: 1. History of lumbar radiculopathy involving the left L5-S1 dermatomal distribution. 2. Chronic medical regimen using opioid medications. 3. History of renal stones. 4. History of diabetes. 5. Asthma. 6. Lower jaw healing with preparation for dentures. 7. History of ulcers. 8. History of prostate cancer. 9. History of hernia repair in 2006. 10. Esophageal surgery in 1973. RECOMMENDATIONS: We discussed treatment options with the patient. At this juncture, he feels that things are going reasonably well. He does not feel that he needs the sleep aids. He is feeling more comfortable with the way things are. He feels his jaw continues to heal. He is able to have a greater variety of foods to eat while he awaits the making of his lower dentures. The patient has returned today for renewal of his medications. A script for his medications of hydrocodone 10/325, total of 60 tablets, has been dispensed. [address] [place] [address] PAIN MANAGEMENT CONSULTATION Name: KETTY LOZADA Room #: REG RONDA Márquez#: [id number] Admission: 11/23/17 Attend Phys: Pari Ryder MD Discharge: Date of : 40 Report #: [id number] We would like to thank you for letting us participate in his care. We hope he continues to improve. By: [id number] Pari Ryder MD /nt
[2017-11-23 08:05] VITALS: BP 136/80
== END ==
LOC: PAIN 06:54
DX: M54.16 Radiculopathy, lumbar region (principal); G89.29 Other chronic pain; J45.909 Unspecified asthma, uncomplicated; Z79.899 Other long term (current) drug therapy; Z87.442 Personal history of urinary calculi; Z85.46 Personal history of malignant neoplasm of prostate; Z79.891 Long term (current) use of opiate analgesic; Z87.11 Personal history of peptic ulcer disease; Z86.39 Personal history of other endocrine, nutritional and metabolic disease

== ENCOUNTER → 2017-12-21 | Outpatient (CLI) | payer MEDICARE, OTHER ==
[~2017-12-21] VITALS: Ht 185.4 cm; Wt 74.4 kg
[~2017-12-21] MED LIST changes: +MEDROLDOSEPACK PO; +NEURONTIN 400400 M1 PO
--- NOTE | ~2017-12-21 | HPC ---
[facility] [address] [place] [address] PAIN MANAGEMENT CONSULTATION Name: KETTY LOZADA Room #: REG [facility] M..#: [id number] Admission: 12/21/17 Attend Phys: Pari Ryder MD Discharge: Date of : 40 Report #: [id number] THIS REPORT FOR: //name// CC: Agapito Ryder DATE OF SERVICE: 12/21/2017 INDICATIONS: Noted some pain going down my right leg, having some problems sleeping. HISTORY: The patient is a very pleasant 76-year-old gentleman who has been followed in the Pain Clinic. As you recall, he has had pain involving his right leg. He has undergone epidural steroid injections. He has been doing reasonably well. He has noted a change in the weather. Since the change in the weather, he has noted increased pain and discomfort with pain radiating down into his leg. He sometimes wakes as a result of the pain and discomfort. He has been experiencing some throbbing in the right leg and rates it as a 5/10 at this juncture. Denies any problem with his bowel or bladder function. Continues to have his dog for support. Feels that things are going reasonably well and would like to have his medications renewed. ALLERGIES: FLOMAX. CURRENT MEDICATIONS: Hydrocodone 10/325 one p.o. b.i.d., Zithromax 500 mg, Glucotrol 5 mg b.i.d., Trulicity 0.75 mg, albuterol inhaler 2 puffs p.r.n., Flonase 0.05 nasal spray, Crestor 40 mg, Prilosec 20 mg, potassium 20 mEq, and Viagra p.r.n. PAIN CLINIC ASSESSMENT/PQRS: 1. The patient has not been treated for rheumatoid arthritis and has some osteoarthritic changes in his low back. 2. Height 6 feet 1 inch, weight is 164 pounds, BMI is 21.6. 3. Vital signs: Blood pressure is 93/69, pulse 86, respiratory rate 14, and room air saturation 98%. 4. Pain intensity 06/16. 5. Fall risk. The patient has not fallen in the last 3 months. 6. Blood thinner. The patient is not on a blood thinning medication. 7. Hypertension. The patient is not being treated for hypertension. 8. Opioid therapy greater than 6 weeks. The patient get his medications from [facility]. 9. Risk assessment tool: 0/3, low risk for opioid use. 10. Functional assessment: . 11. Recreational drugs: The patient denies use of recreational drugs. 12. Tobacco: The patient denies use of tobacco. [address] [address] PAIN MANAGEMENT CONSULTATION Name: KETTY LOZADA Room #: REG CLCorey Márquez#: [id number] Admission: 12/21/17 Attend Phys: Pari Ryder MD Discharge: Date of : 40 Report #: [id number] 13. Alcohol: The patient denies use of alcoholic beverages. PHYSICAL EXAMINATION: GENERAL: The patient is a well-developed and well-nourished black male, appears his stated age. He is alert and oriented x 3. He is calm. Speech is fluent, has his dog with him. HEENT: Normocephalic and atraumatic. Extraocular eye muscles intact. Sclerae nonicteric. Mucous membranes are moist. Jaw is well healed, has upper and lower plates in place. NECK: Without JVD or bruits. Good range of motion. HEART: Regular rate. S1, S2. LUNGS: Clear to auscultation without rhonchi or rales. ABDOMEN: Nontender. Bowel sounds are prominent. EXTREMITIES: Upper extremity muscle strength is judged to be 5/5 without neurological change. Lower extremity muscle strength. The patient without kyphosis, lordosis, or scoliosis. Muscle strength 5/5 for the major muscle groups on the left and 5-/5 for the right with some pain and discomfort radiating down the L5-S1 nerve dermatomal distribution. IMPRESSION: 1. History of lumbar radiculopathy in the L5-S1 dermatomal distribution on the right. 2. Chronic medical regimens using opioid medication. 3. History of renal stones. 4. History of diabetes. 5. Asthma. 6. History of ulcers. 7. History of prostate cancer. 8. History of hernia repair in 2006. 9. Esophageal surgery in 1970. RECOMMENDATIONS: We discussed the treatment with the patient. He is experiencing some pain and discomfort, which is radiating down in the L5-S1 dermatomal distribution at this juncture. We will have the patient try a Medrol Dosepak at this point. Hopefully, I will find this anti-inflammatory reaction will help and decrease his pain and discomfort. He will call us if he has any concerns. We would like to thank you for letting us participate in his care. We hope he continues to improve. <ELECTRONICALLY SIGNED> By: Pari Ryder MD 12/21/17 [id number] Pari Ryder MD /nt
[2017-12-21 08:00] VITALS: BP 93/69
== END ==
LOC: PAIN 06:53
DX: M54.16 Radiculopathy, lumbar region (principal); G89.29 Other chronic pain; F11.23 Opioid dependence with withdrawal; N20.0 Calculus of kidney; J45.909 Unspecified asthma, uncomplicated; Z87.11 Personal history of peptic ulcer disease; Z85.46 Personal history of malignant neoplasm of prostate; Z86.39 Personal history of other endocrine, nutritional and metabolic disease; Z87.710 Personal history of (corrected) hypospadias

== ENCOUNTER → 2018-01-18 | Outpatient (CLI) | payer MEDICARE, OTHER ==
[~2018-01-18] VITALS: Ht 185.4 cm; Wt 77.1 kg
--- NOTE | ~2018-01-18 | HPC ---
[facility] [address] [place] [address] PAIN MANAGEMENT CONSULTATION Name: KETTY LOZADA Room #: REG RONDA Yulisa#: [id number] Admission: 01/18/18 Attend Phys: Pari Ryder MD Discharge: Date of : 40 Report #: [id number] THIS REPORT FOR: //name// CC: Agapito Ryder DATE OF SERVICE: 01/18/2018 CHIEF COMPLAINT: "I have had some pain in my right foot." FOLLOWUP HISTORY: The patient is a 77-year-old gentleman who has been followed in the pain clinic because of lumbar radiculopathy. He has undergone a series of epidural steroid injections in the past. Pain continues to be problematic. At this juncture, he finds that opioid medications as well as nonsteroidals are helpful. He has returned today for renewal of his medications. He has had no complication from their use. He feels that the gabapentin medication in conjunction with hydrocodone are helpful. He also still has a nervous history. He feels that his Xanax medications are beneficial. He continues to find glenroy with his dog who helps his anxiety. He rates his pain today as a 9-10/10. The weather has changed. It is about 30 degrees outside. He is contemplating getting some new shoes. He states that he goes and gets new shoes each about the same time each year. He is trying to determine whether or not he should get athletic shoes or hard shoes. He thinks he will go with the athletic shoes at this juncture. ALLERGIES: FLOMAX. CURRENT MEDICATIONS: 1. Hydrocodone 10/325 one p.o. b.i.d. 2. Zithromax 500 mg. 3. Glucotrol 5 mg b.i.d. 4. Trulicity 0.75 mg. 5. Albuterol inhaler 2 puffs p.r.n. 6. Flonase 0.05 nasal spray. 7. Crestor 40 mg. 8. Prilosec 20 mg. 9. Potassium 20 mEq. 10. Viagra p.r.n. PAIN CLINIC ASSESSMENT/PQRS: 1. The patient has not been treated for rheumatoid arthritis and has some osteoarthritic changes in his low back area. 2. Height 6 feet 1 inch, weight 170 pounds, BMI 22.4. 3. Vital Signs: Blood pressure 148/75, pulse 84, respiratory rate 16, room air saturation 99%. 4. Pain intensity 10. [facility] [address] [place] [address] PAIN MANAGEMENT CONSULTATION Name: KETTY LOZADA [id number]mission: 01/18/18 Attend Phys: Pari Ryder MD Discharge: Date of : 40 Report #: [id number] 5. Fall risk. The patient has not fallen in the last 3 months. 6. Blood thinner. The patient is not on a blood thinning medication. 7. Hypertension. The patient has not been treated for hypertension. 8. Opioid therapy greater than 6 weeks. The patient receives his medications from the pain clinic, [facility]. 9. Risk assessment tool, low risk, 0/3 for opioid use. 10. Functional assessment tool . 11. Recreational drug use. The patient denies use of recreational drugs. 12. Tobacco: The patient denies use of tobacco. PHYSICAL EXAMINATION: GENERAL: The patient is a well-developed, well-nourished black male, appears his stated age. He is alert and oriented x 3. He is calm. Speech is fluent. Has his stress dog with him. HEENT: Normocephalic, atraumatic. Extraocular eye muscles are intact. Sclerae nonicteric. Mucous membranes are moist. Jaw is well-healed, upper and lower plates in place. NECK: Without JVD or bruits. Good range of motion. HEART: Regular rate. S1, S2. LUNGS: Clear to auscultation without rhonchi or rales. ABDOMEN: Nontender. Bowel sounds are present. EXTREMITIES: Upper extremity muscle strength is judged to be 5/5 without neurological change. Lower extremity muscle strength is judged to be 5-/5 in the right lower area with some discomfort radiating down the L5-S1 dermatomal distribution. IMPRESSION: 1. History of lumbar radiculopathy in the L5-S1 dermatomal distribution on the right. 2. Chronic medical regimen using opioids. 3. History of renal stones. 4. History of diabetes. 5. Asthma. 6. History of ulcers. 7. History of prostate cancer. 8. History of hernia repair in 2006. 9. Esophageal surgery in 1990. RECOMMENDATIONS: We discussed treatment options with the patient. At this juncture, he will continue with his medications. Risks and benefits of opioid medication were again discussed. They could cause dependence as well as decreased pain relief secondary to development of tolerance. Overall, he feels that things are going reasonably well. He and his stress dog are doing very well. He states that he has two Estrella trees in his house. Has items on the Estrella tree for his stress dog. He states that she will not bother them until he presents them to her. Overall, things are going reasonably well. He [facility] [address] [place] [address] PAIN MANAGEMENT CONSULTATION Name: KETTY LOZADA Room #: REG [facility]..#: [id number] Admission: 01/18/18 Attend Phys: Pari Ryder MD Discharge: Date of : 40 Report #: [id number] continues to bundle her in a jacket as well as other clothing which is borderline. We would like to thank you for letting us participate in his care. We hope he continues to improve. By: [id number] Pari Ryder MD /nt
[2018-01-18 08:01] VITALS: BP 148/75
== END ==
LOC: PAIN 06:57
DX: M54.17 Radiculopathy, lumbosacral region (principal); E11.9 Type 2 diabetes mellitus without complications; J45.909 Unspecified asthma, uncomplicated; Z79.899 Other long term (current) drug therapy; Z87.442 Personal history of urinary calculi; Z85.46 Personal history of malignant neoplasm of prostate; Z98.890 Other specified postprocedural states

== ENCOUNTER → 2018-02-15 | Outpatient (CLI) | payer MEDICARE, OTHER ==
[~2018-02-15] VITALS: Ht 185.4 cm; Wt 76.7 kg
--- NOTE | ~2018-02-15 | HPC ---
[facility] [place] [address] PAIN MANAGEMENT CONSULTATION Name: KETTY LOZADA Room #: REG Corey Salazar.#: [id number] Admission: 02/15/18 Attend Phys: Pari Ryder MD Discharge: Date of : 40 Report #: [id number] THIS REPORT FOR: //name// CC: Agapito Ryder DATE OF SERVICE: 02/15/2018 FOLLOWUP COMPLAINT: Pain in the low back and down into the right leg. Here for renewal of medication. FOLLOWUP HISTORY: The patient is a 77-year-old gentleman who has been followed in the Pain Clinic. He has undergone epidural steroid injections. After the series of epidural steroid injection, he continued to have pain, which was uncomfortable. He was then treated with opioid medications. He finds that these medications are beneficial. States that his physician has found an elevation in his PSA. Hopefully, he is not having a recurrence of his prostate cancer. States that he can follow up with his doctor in the near future. At this juncture, he would like to continue with his medications. He has returned to the Pain Clinic for renewal of his medications. Finds that these medications are helpful. He is able to engage in activities he would not be able to without their use. He rates his pain as 6/10. The patient continues to find companionship with his pet (Chihuahua dog). ALLERGIES: FLOMAX. CURRENT MEDICATIONS: Hydrocodone 10/325 one p.o. b.i.d., Zithromax 500 mg, Glucotrol 5 mg b.i.d., Trulicity 0.75 mg, albuterol inhaler 2 puffs, Flonase 0.05% nasal spray. Crestor 40 mg, Prilosec 20 mg, potassium 20 mEq, Viagra p.r.n. PAIN CLINIC ASSESSMENT/PQRS: 1. The patient is not being treated for rheumatoid arthritis. Does have some arthritic changes in his low back area. 2. Height 6 feet 1 inch, weight 169 pounds, BMI is 22.3. 3. Vital signs: Blood pressure 135/83, pulse 86, respiratory rate 16, room air saturation 98%. 4. Pain intensity, 07/17. 5. A Fall risk. The patient has not fallen in the last 3 months. 6. Blood thinner. The patient is not on a blood thinning medication. 7. Hypertension. The patient is not being treated for hypertension. 8. Opioid greater than 6 weeks. The patient [facility]. 9. Risk assessment tool, low risk 0/3 for opioid use. 10. Functional assessment tool, . 11. Recreational drug use. The patient denies use of recreational drugs. [address] [address] PAIN MANAGEMENT CONSULTATION Name: KETTY LOZADA Room #: REG CLI [facility].#: [id number] Admission: 02/15/18 Attend Phys: Pari Ryder MD Discharge: Date of : 40 Report #: [id number] 12. Tobacco: The patient is smoking 1 pack of cigarettes per day and has continued to try and decrease this use. We have discussed the benefits of smoking cessation. 13. Alcohol: The patient denies frequent use of alcoholic beverages. PHYSICAL EXAMINATION: GENERAL: The patient is a well-developed, well-nourished black male. He appears his stated age. He is alert and oriented x 3. He is calm. He has (stressed dog with him). HEENT: Normocephalic, atraumatic. Extraocular eye muscles intact. Sclerae nonicteric. Mucous membranes are moist. NECK: Without adenopathy or JVD. Good range of motion. HEART: Regular rate. S1, S2. LUNGS: Clear to auscultation without rhonchi. ABDOMEN: Nontender. Bowel sounds present. EXTREMITIES: Upper extremity muscle strength is judged to be 5/5 without neurologic pain. Lower extremity muscle strength to be 5-/5. The patient continues to have pain and discomfort radiates down into the right lower portion in the L5 dermatomal distribution of his leg. IMPRESSION: 1. History of lumbar radiculopathy, L5-S1 dermatomal distribution on the right. 2. Chronic medical regimen using opioids. 3. History of renal cell stones. 4. History of diabetes. 5. History of asthma. 6. History of ulcers. 7. History of prostate cancer. 8. History of hernia repair in 2006. 9. Gastroesophageal esophageal surgery in 1990. RECOMMENDATIONS: We discussed treatment options with the patient. At this juncture, he would like to continue with medication. He feels these medications are helpful. He would like to have the medications renewed. He is somewhat concerned regarding the elevated PSA findings by his primary. He is concerned that his prostate cancer may be returning. He will follow up with his primary. Hopefully, things are working out well. He will call us if he has any concerns. A script for his medications of gabapentin 400 mg 1 p.o. t.i.d., alprazolam 0.5 mg 1 p.o. t.i.d., hydrocodone 10/325 one p.o. b.i.d. have been written. We would like to thank you for letting us participate in his care. We hope he continues to improve. By: [id number] Pari Ryder MD /don
[2018-02-15 08:02] VITALS: BP 135/83
--- NOTE | 2018-02-15 08:06 | NUR ---
Pain Clinic Assessment: 1. History of Osteoarthritis: Not Applicable History of Rheumatoid Arthritis: Not Applicable 2. Height: 6 ft. 1 in. 185.4 cm. Weight: 169.0 lb. oz. 76.658 kg. Patient's BMI: 22.3 3. Vital Signs: BP: 135/83 Pulse: 86 Resp: 16 Temp: 02 Sat: 99 ECG Mon: 4. Pain Intensity: 6 5. Fall Risk: Dizziness: N Needs help standing or walking: N Fallen in the last 3 months: N Fall risk comments: 6. Patient on Blood Thinner: None 7. History of Hypertension: N 8. Opioid Therapy greater than 6 weeks: Y Opiate Contract Signed: 02/04/17 9. Risk Assessment Tool Provided: LOW RISK 0/3 10. Functional Assessment Tool: 11. Recreational Drug Use: Past greater than 3 mos Drug Type: Tobacco Use: Current Every Day Smoker Tobacco Type: Cigarettes Amount or Packs/day: 1 PACK MONTH How Many Years: Alcohol Use: No Frequency: Quant:
== END ==
LOC: PAIN 06:45
DX: M54.16 Radiculopathy, lumbar region (principal); E11.9 Type 2 diabetes mellitus without complications; J45.909 Unspecified asthma, uncomplicated; Z79.899 Other long term (current) drug therapy; Z87.11 Personal history of peptic ulcer disease; Z85.46 Personal history of malignant neoplasm of prostate; Z87.710 Personal history of (corrected) hypospadias; Z87.442 Personal history of urinary calculi

== ENCOUNTER → 2018-03-08 | Outpatient (CLI) | payer MEDICARE, OTHER ==
[~2018-03-08] VITALS: Ht 185.4 cm; Wt 77.1 kg
--- NOTE | ~2018-03-08 | HPC ---
[facility] [email or web address] [address] PAIN MANAGEMENT CONSULTATION Name: KETTY LOZADA Room #: REG KIKECorey Márquez#: [id number] Admission: 03/08/18 Attend Phys: Pari Ryder MD Discharge: Date of : 40 Report #: [id number] THIS REPORT FOR: //name// CC: Agapito Ryder DATE OF SERVICE: 03/08/2018 CHIEF COMPLAINT: Here for renewal of the medication. It is really cold outside. Temperature is -4. My dog is cold and I put on her mittens. FOLLOWUP HISTORY: The patient is a 77-year-old gentleman who has been followed in the pain clinic. As you recall, he has pain and discomfort in his low back area. It has been there for quite some time. He has undergone a series of epidural steroid injections. Overall, things continue to be stable, finds these medications are helpful. He also has been following up with his physicians because of his elevated PSA. He also has a history of Crohn's disease. States that it feels that sometimes his stomach is upset and may be a harbinger of worsening of his Crohn's disorder. Overall, things are going reasonably well. He feels that his Xanax medication is helpful. It does not seem to last as long as it used to. Notes that after about 6 hours, he start to have noted increase in his anxiety. Overall, things are going reasonably well with that. He has returned today for renewal of his medication. He is doing reasonably well. He feels that his crane operator cab dog is ____ () is helpful maintaining his calm state. ALLERGIES: FLOMAX CURRENT MEDICATIONS: Hydrocodone 10/325 one p.o. b.i.d., Zithromax 500 mg, Glucotrol 5 mg b.i.d., Trulicity 0.75 mg, albuterol inhaler 2 puffs, Flonase, 0.05 percent nasal spray, Crestor 40 mg, Prilosec 20 mg, potassium 20 mEq, Viagra p.r.n. PAIN CLINIC ASSESSMENT/PQRS: 1. The patient is not being treated for rheumatoid arthritis. Does have some arthritic changes in his low back area. 2. Height is 6 feet 1 inch, weight is 170 pounds, BMI is 22.4. 3. Vital signs: Blood pressure 137/95, pulse 82, respiratory rate 14, room air saturation 97%. 4. Pain intensity 5/10. 5. Fall risk. The patient has not fallen in the last 3 months. 6. Blood thinner. The patient is not on a blood thinning medication. 7. Hypertension. The patient is not being treated for hypertension. 8. Opioids greater than 6 weeks. The patient [facility]. 9. Risk assessment: 0/3 [place] [address] PAIN MANAGEMENT CONSULTATION Name: KETTY LOZADA Room #: REG CL Martin.#: [id number] Admission: 03/08/18 Attend Phys: Pari Ryder MD Discharge: Date of : 40 Report #: [id number] 10. Functional assessment tool . 11. Recreational drug use. The patient denies use of recreational drugs. 12. Tobacco: The patient smokes about one cigarette per day. 13. We discussed the benefits of smoking cessation with the patient. 14. Alcohol: The patient denies use of alcoholic beverages. PHYSICAL EXAMINATION: GENERAL: The patient is a well-developed, well-nourished black male, appears his stated age. He is alert and oriented x 3. His affect is appropriate. Speech is fluent. HEENT: Normocephalic, atraumatic. Extraocular muscles intact. He appears relaxed and does not appear agitated or anxious. NECK: Without adenopathy or JVD. Good range of motion. HEART: Regular rate. S1, S2. LUNGS: Clear to auscultation without rhonchi or rales. ABDOMEN: Nontender. Bowel sounds present. EXTREMITIES: Upper extremity muscle strength is judged to be 5/5, lower extremity muscle strength 5/-5. The patient continues to have some pain that radiates down the right lower area in the L5 dermatomal distribution of his right leg. IMPRESSION: 1. Lumbar radiculopathy, L5-S1 dermatomal distribution on the right. 2. Medical regimen using opioids. 3. History of renal stones. 4. History of diabetes. 5. History of asthma. 6. History of ulcers -- Crohn's disease. 7. History of prostate cancer. 8. Hernia repair in 2006, has some difficulty swallowing, some pills. 9. Gastroesophageal surgery in 1990. RECOMMENDATIONS: We discussed treatment options with the patient. We will continue with his current medication. A script for his medications of hydrocodone and the Xanax medication have been rewritten. He will continue his medication. He will call us if he has any concerns. We would like to thank you for letting us participate in his care. Overall, things are going reasonably well. His dog seems to be quite a comfort to him. A script for gabapentin has been written as well, Xanax 0.5 mg is written. By: [id number] Pari Ryder MD /don
[2018-03-08 08:10] VITALS: BP 137/95
--- NOTE | 2018-03-08 08:12 | NUR ---
Pain Clinic Assessment: 1. History of Osteoarthritis: Not Applicable History of Rheumatoid Arthritis: Not Applicable 2. Height: 6 ft. 1 in. 185.4 cm. Weight: 170.0 lb. oz. 77.112 kg. Patient's BMI: 22.4 3. Vital Signs: BP: 137/95 Pulse: 82 Resp: 14 Temp: 02 Sat: 97 ECG Mon: 4. Pain Intensity: 5 5. Fall Risk: Dizziness: N Needs help standing or walking: N Fallen in the last 3 months: N Fall risk comments: 6. Patient on Blood Thinner: None 7. History of Hypertension: N 8. Opioid Therapy greater than 6 weeks: Y Opiate Contract Signed: 02/04/17 9. Risk Assessment Tool Provided: LOW RISK 0/3 10. Functional Assessment Tool: 11. Recreational Drug Use: Past greater than 3 mos Drug Type: Tobacco Use: Current Every Day Smoker Tobacco Type: Cigarettes Amount or Packs/day: 0.1 How Many Years: 20 Alcohol Use: No Frequency: Quant:
== END ==
LOC: PAIN 06:50
DX: M54.16 Radiculopathy, lumbar region (principal); F11.20 Opioid dependence, uncomplicated; Z86.39 Personal history of other endocrine, nutritional and metabolic disease; Z87.442 Personal history of urinary calculi; Z87.09 Personal history of other diseases of the respiratory system; Z87.19 Personal history of other diseases of the digestive system; Z85.46 Personal history of malignant neoplasm of prostate

== ENCOUNTER → 2018-04-07 | Outpatient (CLI) | payer MEDICARE, OTHER ==
[~2018-04-07] VITALS: Ht 185.4 cm; Wt 78.7 kg
--- NOTE | ~2018-04-07 | HPC ---
[facility] [address] [address] PAIN MANAGEMENT CONSULTATION Name: KETTY LOZADA Room #: REG RONDA Márquez#: [id number] Admission: 04/07/18 ������������������ Attend Phys: Pari Ryder MD Discharge: ������������������ Date of : 40 Report #: [id number] THIS REPORT FOR: //name// CC: Agapito Ryder DATE OF SERVICE: 04/07/2018 FOLLOWUP COMPLAINT: Here for medication renewal, things are going pretty well. HISTORY: The patient is a 77-year-old gentleman, who has been followed in the pain clinic because of chronic lumbar radicular pain. In the past, he has undergone epidural steroid injections. They were helpful for a while. They became less effective. At this juncture, he feels that the medications of hydrocodone and gabapentin are helpful. He feels that things are going reasonably well. He has a history of Crohn's disease. He has been faring reasonably well with the abnormally cold weather. Temperatures have been in the single digits. He has not had any falls. He does note some pain, which he rates as 5-6, it is worse when he is standing, walking, and lying down. He notes that sitting and elevating his legs can be helpful. As you may recall, he has a small dog. He feels great companionship with the dog. It helps to relax his nerves. He has had to shovel some snow out from his walkway and on to his yard so the dog could relieve herself. Overall, things are going reasonably well. CURRENT MEDICATIONS: Hydrocodone 10/325 one p.o. b.i.d., Zithromax 500 mg, Glucotrol 5 mg b.i.d., Trulicity 0.75 mg, albuterol inhaler 2 puffs p.r.n., Flonase 0.05% nasal spray, Crestor 40 mg, Prilosec 20 mg, potassium 20 mEq, and Viagra p.r.n. ALLERGIES: THE PATIENT IS ALLERGIC TO FLOMAX. PAIN CLINIC ASSESSMENT AND PQRS: 1. The patient is not being treated for rheumatoid arthritis or osteoarthritis. 2. Pain intensity is 5-6/10. 3. Fall history: The patient has not fallen in the last 3 months. 4. Blood thinner. The patient is not on a blood thinning medication. 5. Hypertension. The patient is not being treated for hypertension. 6. Opioids greater than 6 weeks. The patient receives this medication [facility]. 7. Risk assessment tool, low for opioid risk, 0/3. 8. Functional assessment tool, . 9. Recreational drug use. The patient denies use of recreational drugs. 10. Tobacco: The patient denies use of tobacco. 11. Alcohol: The patient denies use of alcoholic beverages. [address] [address] PAIN MANAGEMENT CONSULTATION Name: KETTY LOZADA [facility] [id number] Admission: 04/07/18 ������������������ Attend Phys: Pari Ryder MD Discharge: ������������������ Date of : 40 Report #: [id number] PHYSICAL EXAMINATION: GENERAL: The patient is a well-developed, well-nourished black male. He appears his stated age. He is alert and oriented x 3. His affect is appropriate. Speech is fluent. His press operator printing dog (is at his side). She is dressed in a cover as well as her toenails are pink. Height is 6 feet 1 inch, weight is 173 pounds, and BMI is 22.9. VITAL SIGNS: Blood pressure is 137/81, pulse is 82, respiratory rate is 18, and room air saturation is 100%. HEENT: Normocephalic, atraumatic. Extraocular eye muscles intact. Sclerae nonicteric. Mucous membranes are moist. NECK: Without adenopathy or JVD. Good range of motion. HEART: Regular rate. S1, S2. LUNGS: Clear to auscultation without rhonchi or rales. ABDOMEN: Nontender. Bowel sounds present. EXTREMITIES: Upper extremity muscle strength is judged to be 5/5 for the major muscle groups in the upper extremity. Lower extremity muscle strength on the right in the L4-L5 distribution is 5-/5. He has some discomfort in the L5-S1 dermatomal distribution on the right leg. IMPRESSION: 1. Lumbar radiculopathy, L5-S1 dermatomal distribution on the right. 2. Medical regimen, using opioids. 3. History of renal stones. 4. History of diabetes. 5. History of asthma. 6. History of ulcers, Crohn's disease. 7. History of prostate cancer. 8. Hernia repair in 2006, some difficulty swallowing some pills. 9. Gastroesophageal surgery in 1990. RECOMMENDATIONS: We have discussed treatment options with the patient. At this juncture, he feels medications are working reasonably well. The cold weather has been somewhat problematic, but he still stays active. He feels that his dog is doing reasonably well. He feels that the alprazolam medication continues to help monitor and placate his nerves. Gabapentin is working reasonably well, not have any problem with that. We will continue with the hydrocodone 10/325 one p.o. b.i.d. A script for his medications has been rewritten. He will call us if he has any concerns. We would like to thank you for letting us to participate in his care. We hope he continues to improve. ��������������������������������������������� ���������������������������������������� By: ��������������������������������������������� [id number] Pari Ryder MD /XAVIER
[2018-04-07 08:05] VITALS: BP 137/81
--- NOTE | 2018-04-07 08:09 | NUR ---
Pain Clinic Assessment: 1. History of Osteoarthritis: Not Applicable History of Rheumatoid Arthritis: Not Applicable 2. Height: 6 ft. 1 in. 185.4 cm. Weight: 173.6 lb. oz. 78.744 kg. Patient's BMI: 22.9 3. Vital Signs: BP: 137/81 Pulse: 82 Resp: 18 Temp: 02 Sat: 100 ECG Mon: 4. Pain Intensity: 5-6 5. Fall Risk: Dizziness: N Needs help standing or walking: N Fallen in the last 3 months: N Fall risk comments: 6. Patient on Blood Thinner: None 7. History of Hypertension: N 8. Opioid Therapy greater than 6 weeks: Y Opiate Contract Signed: 02/04/17 9. Risk Assessment Tool Provided: LOW RISK 0/3 10. Functional Assessment Tool: 11. Recreational Drug Use: Past greater than 3 mos Drug Type: Tobacco Use: Current Every Day Smoker Tobacco Type: Amount or Packs/day: How Many Years: Alcohol Use: No Frequency: Quant:
== END ==
LOC: PAIN 06:46
DX: M54.16 Radiculopathy, lumbar region (principal); Z79.899 Other long term (current) drug therapy; Z98.890 Other specified postprocedural states; Z87.442 Personal history of urinary calculi; Z87.09 Personal history of other diseases of the respiratory system; Z86.39 Personal history of other endocrine, nutritional and metabolic disease; Z87.19 Personal history of other diseases of the digestive system; Z87.11 Personal history of peptic ulcer disease; Z85.46 Personal history of malignant neoplasm of prostate

== ENCOUNTER → 2018-05-05 | Outpatient (CLI) | payer MEDICARE, OTHER ==
[~2018-05-05] VITALS: Ht 185.4 cm; Wt 78.0 kg
[2018-05-05 08:10] VITALS: BP 121/69
--- NOTE | 2018-05-05 08:17 | NUR ---
Pain Clinic Assessment: 1. History of Osteoarthritis: Not Applicable History of Rheumatoid Arthritis: Not Applicable 2. Height: 6 ft. 1 in. 185.4 cm. Weight: 172.0 lb. oz. 78.019 kg. Patient's BMI: 22.7 3. Vital Signs: BP: 121/69 Pulse: 77 Resp: 16 Temp: 02 Sat: 100 ECG Mon: 4. Pain Intensity: 6 5. Fall Risk: Dizziness: N Needs help standing or walking: N Fallen in the last 3 months: N Fall risk comments: 6. Patient on Blood Thinner: None 7. History of Hypertension: N 8. Opioid Therapy greater than 6 weeks: Y Opiate Contract Signed: 02/04/17 9. Risk Assessment Tool Provided: LOW RISK 0 10. Functional Assessment Tool: 11. Recreational Drug Use: Past greater than 3 mos Drug Type: Tobacco Use: Current Every Day Smoker Tobacco Type: Amount or Packs/day: How Many Years: Alcohol Use: No Frequency: Quant:
--- NOTE | 2018-05-09 12:39 | HPC ---
[facility] [place] [address] PAIN MANAGEMENT CONSULTATION Name: KETTY LOZADA Room #: REG RONDA Yulisa#: [id number] Admission: 05/05/18 ������������������ Attend Phys: Pari Ryder MD Discharge: ������������������ Date of : 40 Report #: [id number] THIS REPORT FOR: //name// CC: Agapito Ryder DATE OF SERVICE: 05/05/2018 FOLLOWUP COMPLAINT: "Here for medications. Things are going reasonably well. I'm glad spring is coming. HISTORY: The patient is a 77-year-old gentleman who has been followed in the Pain Clinic because of chronic pain. He has pain in his low back area with pain that radiates down in the L5-S1 dermatomal distribution. He has undergone epidural steroid injections in the past. We have been helpful. Overall, things are going reasonably well. The weather is warming up. He is able to become more active. He has received his dentures. Overall, he and his mail machine operator dog are doing well. We would like to have his medications renewed. He feels that his Crohn history is stable at this juncture. CURRENT MEDICATIONS: Hydrocodone 10/325 one p.o. b.i.d., Zithromax 500 mg, Glucotrol 5 mg b.i.d., Trulicity 0.75 mg, albuterol inhaler 2 puffs p.r.n., Flonase 0.05% nasal spray, Crestor 40 mg, Prilosec 20 mg, potassium 20 mEq, Viagra p.r.n. ALLERGIES: THE PATIENT IS ALLERGIC TO FLOMAX. PAIN CLINIC ASSESSMENT/PQRS: 1. The patient is not being treated for rheumatoid arthritis or osteoarthritis. Pain intensity is 6/10. 2. Height 6 feet 1 inch, weight 172 pounds, BMI is 22.7. 3. Vital signs: Blood pressure 121/69, pulse 77, respiratory rate 16, room air saturation is 100%. 4. Fall risk. The patient has not fallen in the last 3 months. 5. Blood thinner. The patient is not on a blood thinning medication. 6. Hypertension. The patient is not being treated for hypertension. 7. Opioids greater than 6 weeks. The patient [facility]. 8. Risk assessment tool, low risk 0. 9. Functional assessment tool, . 10. Recreational drug use. The patient denies use of recreational drugs. 11. Tobacco: The patient smokes tobacco. Discussed the benefits of smoking cessation. 12. Alcohol: The patient denies frequent use of alcoholic beverages. PHYSICAL EXAMINATION: [facility] [address] [place] [address] PAIN MANAGEMENT CONSULTATION Name: KETTY LOZADA [facility] [id number] Admission: 05/05/18 ������������������ Attend Phys: Pari Ryder MD Discharge: ������������������ Date of : 40 Report #: [id number] GENERAL: The patient is well-developed, well-nourished black male, appears his stated age. He is alert and oriented x 3. His affect is appropriate. Speech is fluent. HEENT: Normocephalic, atraumatic. Extraocular eye muscles intact. Sclerae nonicteric. Mucous membranes are moist. The patient has his dentures in place. NECK: Without adenopathy or JVD. HEART: Regular rate. S1, S2. LUNGS: Clear to auscultation without rales or rhonchi. ABDOMEN: Nontender. Bowel sounds are present. EXTREMITIES: Upper extremity muscle strength is judged to be 5/5 for the major muscle groups in the upper extremity. Lower extremity muscle strength, the patient has pain and discomfort in the L4-L5 dermatomal distribution and muscle strength 5-/5 on the right side. He has some L5-S1 discomfort on the right side as well. IMPRESSION: 1. Lumbar radiculopathy history, L5-S1. 2. Complex medical regimen using opioids. 3. Renal stones. 4. Diabetes. 5. Asthma. 6. History of ulcers, Crohn's disease. 7. Prostate cancer. 8. Hernia repair in 2006 with some difficulty swallowing pills. 9. Gastroesophageal surgery in 1990. RECOMMENDATIONS: We discussed treatment options with the patient. We will continue with his current medications. A script for his medications have been rewritten. The patient will continue with the gabapentin. He will also continue with hydrocodone 10/325 one p.o. b.i.d. A script for these medications have been rewritten. He will also call us if he has any concerns. We would like to thank you for letting us participate in his care. We hope he continues to improve. ��������������������������������������������� <ELECTRONICALLY SIGNED> ���������������������������������������� By: Pari Ryder MD ��������������������������������������������� 05/09/18 [id number] Pari Ryder MD /nt
== END ==
LOC: PAIN 06:44
DX: M54.17 Radiculopathy, lumbosacral region (principal); N20.0 Calculus of kidney; E11.9 Type 2 diabetes mellitus without complications; J45.909 Unspecified asthma, uncomplicated; C61 Malignant neoplasm of prostate; K50.90 Crohn's disease, unspecified, without complications; K21.9 Gastro-esophageal reflux disease without esophagitis; K46.9 Unspecified abdominal hernia without obstruction or gangrene; Z79.899 Other long term (current) drug therapy; Z79.891 Long term (current) use of opiate analgesic; Z87.11 Personal history of peptic ulcer disease

== ENCOUNTER → 2018-06-02 | Outpatient (CLI) | payer MEDICARE, OTHER ==
[~2018-06-02] VITALS: Ht 185.4 cm; Wt 76.7 kg
[2018-06-02 08:02] VITALS: BP 133/81
--- NOTE | 2018-06-02 08:05 | NUR ---
Pain Clinic Assessment: 1. History of Osteoarthritis: Not Applicable History of Rheumatoid Arthritis: Not Applicable 2. Height: 6 ft. 1 in. 185.4 cm. Weight: 169.0 lb. oz. 76.658 kg. Patient's BMI: 22.3 3. Vital Signs: BP: 133/81 Pulse: 79 Resp: 18 Temp: 02 Sat: 97 ECG Mon: 4. Pain Intensity: 8 5. Fall Risk: Dizziness: N Needs help standing or walking: N Fallen in the last 3 months: N Fall risk comments: 6. Patient on Blood Thinner: None 7. History of Hypertension: N 8. Opioid Therapy greater than 6 weeks: Y Opiate Contract Signed: 02/04/17 9. Risk Assessment Tool Provided: LOW RISK 0 10. Functional Assessment Tool: 11. Recreational Drug Use: Past greater than 3 mos Drug Type: Tobacco Use: Current Every Day Smoker Tobacco Type: Amount or Packs/day: How Many Years: Alcohol Use: No Frequency: Quant:
== END ==
LOC: PAIN 06:38
DX: M54.5 Low back pain (principal); M79.604 Pain in right leg; M79.605 Pain in left leg; F17.200 Nicotine dependence, unspecified, uncomplicated; Z79.891 Long term (current) use of opiate analgesic

== ENCOUNTER → 2018-06-30 | Outpatient (CLI) | payer MEDICARE, OTHER ==
[~2018-06-30] VITALS: Ht 185.4 cm; Wt 73.5 kg
--- NOTE | ~2018-06-30 | HPC ---
[facility] [address] [place] [address] PAIN MANAGEMENT CONSULTATION Name: KETTY LOZADA Room #: REG RONDA Yulisa#: [id number] Admission: 06/30/18 ������������������ Attend Phys: Pari Ryder MD Discharge: ������������������ Date of : 40 Report #: [id number] THIS REPORT FOR: //name// CC: Agapito Ryder DATE OF SERVICE: 06/30/2018 CHIEF COMPLAINT: Here for medication. HISTORY: The patient is a 77-year-old gentleman who has been followed in the Pain Clinic for quite some time. He has pain and discomfort in the lower portion of his back. This is in the L5-S1 dermatomal distribution. Finds that his medications are helpful and quieting down this discomfort. He is able to stay reasonably active. He has returned today and rates his pain as 5/10. He has been coughing up phlegm. States that he is checking with his primary doctor in this regard. He states that it is sometimes on and off and this has been going on for about a year. States he has had a chest x-ray in the past, has been on antibiotics. He is decreasing his cigarette use. He would like to have his medications renewed today. ALLERGIES: THE PATIENT IS ALLERGIC TO FLOMAX. CURRENT MEDICATIONS: Hydrocodone 10/325 one p.o. b.i.d., Zithromax 500 mg, Glucotrol 5 mg b.i.d., Trulicity 0.75 mg, Albuterol inhaler 2 puffs p.r.n., Flonase 0.05% nasal spray, Crestor 40 mg, Prilosec 20 mg, potassium 20 mEq, and Viagra p.r.n. PAIN CLINIC ASSESSMENT/PQRS: 1. The patient is not being treated for rheumatoid arthritis or osteoarthritis. 2. Height 6 feet 1 inch, weight 162 pounds, BMI is 21.4. 3. Vital signs: Blood pressure 145/89, pulse 74, respiratory rate 16, and room air saturation is 99%. 4. Pain intensity 06/16. 5. Fall risk. The patient has not fallen in the last 3 months. 6. Blood thinner. The patient is not on a blood thinning medication. 7. Hypertension. The patient is not being treated for hypertension. 8. Opioids greater than 6 weeks. The patient is on opioid medication received from the Pain Clinic. 9. Risk assessment tool, low risk. 10. Functional assessment . 11. Recreational drug use. The patient denies use of recreational drugs. 12. Tobacco: The patient is a smoker. We have discussed the benefits of smoking cessation. Has decreased smoking and is down to 1 pack per month. Has smoked for the last 40 years. 13. Alcohol: The patient denies use of alcoholic beverages. [facility] [address] [place] [address] PAIN MANAGEMENT CONSULTATION Name: KETTY LOZADA Room #: REG CLCorey Márquez#: [id number] Admission: 06/30/18 ������������������ Attend Phys: Pari Ryder MD Discharge: ������������������ Date of : 40 Report #: [id number] PHYSICAL EXAMINATION: GENERAL: The patient is a well-developed, well-nourished black male, appears his stated age. He is alert and oriented x 3. His affect is appropriate. Speech is fluent. HEENT: Normocephalic and atraumatic. Extraocular eye muscles intact. NECK: Without adenopathy or JVD. HEART: Regular rate. S1, S2. LUNGS: Generally clear to auscultation. ABDOMEN: Nontender. Bowel sounds present. EXTREMITIES: Upper extremity muscle strength is judged to be 5-/5 for the major muscle groups in the upper extremity. Lower extremity, the patient's muscle strength is 5-/5. Has some right lower extremity discomfort particularly in the left lower extremity L5-S1 dermatomal distribution. IMPRESSION: 1. Lumbar radiculopathy, history of L5-S1 on the right. 2. Complex medical regimen using opioid medications management. 3. Renal stones. 4. Diabetes. 5. Asthma. 6. History of ulcers, Crohn's disease. 7. Prostate cancer. 8. Hernia repair in 2006 with some difficulty swallowing pills. 9. Gastroesophageal surgery in 1990. RECOMMENDATIONS: We discussed treatment options with the patient at this juncture, we will continue with the medications. Risks and benefits of opioid medications have been discussed. The patient feels the medications are helpful. They enable him to engage in activities and continuing his activities of daily living. He is somewhat concerned about the cough and phlegm production. States he has been on and off for about a year. He is following up with his primary in that regard. He will call us if he has any concerns. A script for his medications have been rewritten. The patient will continue with hydrocodone 10 mg 1 p.o. b.i.d. as well as alprazolam to help with his anxiety 1 p.o. 0.5 mg t.i.d. He will also continue with gabapentin 400 mg 1 p.o. b.i.d. He will call us if he has any concerns. We would like to thank you for letting us participate in his care. We hope he continues to improve. ��������������������������������������������� ���������������������������������������� By: ��������������������������������������������� [id number] Pari Ryder MD /nt
[2018-06-30 08:12] VITALS: BP 145/89
--- NOTE | 2018-06-30 08:16 | NUR ---
Pain Clinic Assessment: 1. History of Osteoarthritis: Not Applicable History of Rheumatoid Arthritis: Not Applicable 2. Height: 6 ft. 1 in. 185.4 cm. Weight: 162.0 lb. oz. 73.483 kg. Patient's BMI: 21.4 3. Vital Signs: BP: 145/89 Pulse: 74 Resp: 16 Temp: 02 Sat: 99 ECG Mon: 4. Pain Intensity: 5 5. Fall Risk: Dizziness: N Needs help standing or walking: N Fallen in the last 3 months: N Fall risk comments: 6. Patient on Blood Thinner: None 7. History of Hypertension: N 8. Opioid Therapy greater than 6 weeks: Y Opiate Contract Signed: 02/04/17 9. Risk Assessment Tool Provided: LOW RISK 0 10. Functional Assessment Tool: 11. Recreational Drug Use: Past greater than 3 mos Drug Type: Tobacco Use: Current Every Day Smoker Tobacco Type: Cigarettes Amount or Packs/day: 1PK/[place] How Many Years: 40 Alcohol Use: No Frequency: Quant:
== END ==
LOC: PAIN 06:46
DX: Z76.0 Encounter for issue of repeat prescription (principal); M54.16 Radiculopathy, lumbar region; E11.9 Type 2 diabetes mellitus without complications; J45.909 Unspecified asthma, uncomplicated; N20.0 Calculus of kidney; K21.9 Gastro-esophageal reflux disease without esophagitis; Z85.46 Personal history of malignant neoplasm of prostate; Z79.891 Long term (current) use of opiate analgesic; Z79.899 Other long term (current) drug therapy

== ENCOUNTER → 2018-07-26 | Outpatient (CLI) | payer MEDICARE, OTHER ==
[~2018-07-26] VITALS: Ht 185.4 cm; Wt 72.1 kg
[2018-07-26 08:10] VITALS: BP 143/85
--- NOTE | 2018-07-26 08:17 | NUR ---
Pain Clinic Assessment: 1. History of Osteoarthritis: Not Applicable History of Rheumatoid Arthritis: Not Applicable 2. Height: 6 ft. 1 in. 185.4 cm. Weight: 159.0 lb. oz. 72.122 kg. Patient's BMI: 21.0 3. Vital Signs: BP: 143/85 Pulse: 78 Resp: 16 Temp: 02 Sat: 98 ECG Mon: 4. Pain Intensity: 5 5. Fall Risk: Dizziness: N Needs help standing or walking: N Fallen in the last 3 months: N Fall risk comments: 6. Patient on Blood Thinner: None 7. History of Hypertension: N 8. Opioid Therapy greater than 6 weeks: Y Opiate Contract Signed: 02/04/17 9. Risk Assessment Tool Provided: LOW RISK 0 10. Functional Assessment Tool: 11. Recreational Drug Use: Past greater than 3 mos Drug Type: Tobacco Use: Current Every Day Smoker Tobacco Type: Cigarettes Amount or Packs/day: 1 How Many Years: 40 Alcohol Use: No Frequency: Quant:
--- NOTE | 2018-07-26 15:08 | HPC ---
[facility] [address] [place] [address] PAIN MANAGEMENT CONSULTATION Name: KETTY LOZADA Room #: REG RONDA Salazar.#: [id number] Admission: 07/26/18 ������������������ Attend Phys: Dorcas Abdullahi Discharge: ������������������ Date of : 40 Report #: [id number] THIS REPORT FOR: //name// CC: Dorcas Murphy DATE OF SERVICE: 07/26/2018 CHIEF COMPLAINT: Low back pain and left shoulder pain. HISTORY OF PRESENT ILLNESS: This is a 77-year-old gentleman who returns to the pain clinic today for refill of his medications, he takes for his ongoing low back pain that does radiate down his right leg to his foot. Today, he is also complaining of significant left shoulder pain, unable to raise his shoulder greater than 90 degrees. He has been doing some exercises to try and get better range of motion. He is scheduled to see his primary care doctor in a couple of weeks, but tells me if it does continue to get worse, he will move up that appointment. The patient tells me that his pain is 5/10 today, slightly higher due to his shoulder pain. He tells me it is achy, sharp, throbbing pain; worse with standing, walking or lifting his arm. His medications are very helpful. He does tell me that he is not having any problems with constipation. He does take a scheduled nap every day because he arises every day at 4:30, so in the afternoon he rests. He tells me he is walking at least 2 miles a day and does feel better after he has exercised. He would like his refill of his medications today. ALLERGIES: FLOMAX. CURRENT MEDICATIONS: Hydrocodone 10/325, gabapentin 400 mg b.i.d., Xanax 0.5 mg 3 times a day, buspirone 10 mg twice a day, Glucotrol 5 mg b.i.d., Trulicity weekly, ProAir as needed, Crestor, Prilosec, potassium, Viagra. PQRS: He is not being treated for rheumatoid or osteoarthritis. Height is 6 feet 1 inch, weight is 159, BMI is 21. Vital signs 143/85, pulse is 78, respirations 16, oxygen sat is 98. Pain score is 5/10 while resting. He denies dizziness. Does not need help with walking or standing. Has not fallen in the last 3 months. The patient is not on any blood thinners. He does not take medicine for hypertension. He has an opioid signed contract on the chart. His risk assessment tool is low. Functional assessment is 19/70. Recreational drug use in the past, he does smoke cigarettes about a pack a day, does not drink alcohol. We did check the prescription monitoring system. The patient is filling appropriately for his medications in a timely fashion, we will check a drug screen on him today of a urine, the last one was in 2018. [address] [address] PAIN MANAGEMENT CONSULTATION Name: KETTY LOZADA Room #: REG RONDA Márquez#: [id number] Admission: 07/26/18 ������������������ Attend Phys: Dorcas Abdullahi Discharge: ������������������ Date of : 40 Report #: [id number] PHYSICAL EXAMINATION: GENERAL: This is a well-developed, well-nourished black gentleman who appears his stated age. He is alert and orientated. His affect is appropriate. Rating his pain score today at 5/10. HEENT: Normocephalic, atraumatic. Extraocular eye muscles are intact. Mucous membranes are moist. NECK: Without adenopathy or JVD. EXTREMITIES: Upper extremity strength judged to be 5/5 for major muscle groups in the upper extremity. His left shoulder, able to raise to 90 degrees with active range of motion before it becomes tender and painful. Pain also was elicited with movement higher than that on his left arm. Complains of tenderness across his lower back following the L5-S1 distribution down the right leg. The patient walks with a slightly antalgic gait. ASSESSMENT: 1. Lumbar radiculopathy, history of L5-S1 on the right. 2. Complex medical management under terms of an opioid agreement. 3. Diabetic. 4. Prostate cancer. 5. Anxiety. We reviewed the fact that opiate medications are being used to provide analgesia adequate to support activities of daily living, not attempting to achieve a specific pain score on the 0-10 Visual Analog Scale. The current opiate medications are providing sufficient analgesia to allow the patient to participate in activities of daily living. The patient is not exhibiting any aberrant behavior suggestive of drug diversion. The patient is not having any adverse reactions to medications. The patient is not suffering from daytime somnolence or mental acuity changes. The patient is managing opiate-induced constipation with appropriate [id number] agents and dietary considerations. The patient was counseled on concern for caution with operating a motor vehicle while using opiate medications. A physical exam was performed and the patient's functional status was evaluated. All patients with back pain were advised against the bed rest greater than 4 days and were advised to return to normal activities. Pain score assessment was noted and the treatment plan was reviewed with the patient. All current medications, both prescribed and OTC were reviewed and reconciled on the electronic medical record. Tobacco screening was accomplished and smoking cessation was advised when indicated. BMI was noted and diet/exercise modification was recommended for all patients following outside normal parameters. I reviewed with the patient today their responsibilities to safeguard prescription medications, reviewed their responsibility to utilize medications only as prescribed by the physician. They are to seek and receive pain [facility] [address] [place] [address] PAIN MANAGEMENT CONSULTATION Name: KETTY LOZADA Room #: REG [facility] M..#: [id number] Admission: 07/26/18 ������������������ Attend Phys: Dorcas Abdullahi Discharge: ������������������ Date of : 40 Report #: [id number] medications only from 1 physician group ( [facility]). They are to use 1 pharmacy and keep the clinic informed if they change pharmacies. Their responsibilities include making followup visits in a timely fashion and to avoid abrupt discontinuation of medication usage. Their responsibilities further include bringing their medications (bottles from the pharmacy with residual pills) to the visit for possible confirmation of pill counts and the patient understands it is their responsibility to submit to random drug screens to ensure both that the medications prescribed are present, and that no other controlled substances are present. All prescriptions provided today were generated electronically. PLAN: 1. We discussed treatment options with the patient today. The patient tells me he is doing quite well with his current medications for his back pain. Script was given for hydrocodone 10/325, #60 and Xanax 0.5 mg 3 times a day and gabapentin 400 mg, #60. 2. The patient will follow up in 1 month for an appointment. 3. We did check a urine drug screen today. 4. The patient seen in collaboration with Dr. Frank Pace who did see the patient as well today. ��������������������������������������������� <ELECTRONICALLY SIGNED> ���������������������������������������� By: Dorcas Abdullahi ��������������������������������������������� 07/26/18 [id number] Dorcas Abdullahi /nt
== END ==
LOC: PAIN 06:45
DX: M54.16 Radiculopathy, lumbar region (principal); E11.9 Type 2 diabetes mellitus without complications; C61 Malignant neoplasm of prostate; F41.9 Anxiety disorder, unspecified; Z79.891 Long term (current) use of opiate analgesic; Z79.899 Other long term (current) drug therapy

== ENCOUNTER → 2018-08-23 | Outpatient (CLI) | payer MEDICARE, OTHER ==
[~2018-08-23] VITALS: Ht 185.4 cm; Wt 73.5 kg
--- NOTE | ~2018-08-23 | HPC ---
[facility] [address] [place] [address] PAIN MANAGEMENT CONSULTATION Name: KETTY LOZADA Room #: REG RONDA Márquez#: [id number] Admission: 08/23/18 ������������������ Attend Phys: Pari Ryder MD Discharge: ������������������ Date of : 40 Report #: [id number] THIS REPORT FOR: //name// CC: Agapito Ryder DATE OF SERVICE: 08/23/2018 CHIEF COMPLAINT: "Low back pain and left shoulder pain. I can barely move my left shoulder." FOLLOWUP HISTORY: The patient is a 77-year-old gentleman who has been followed in the pain clinic because of chronic pain involving his low back. As you recall, he has some pain, which radiates down into the left L5-S1 dermatomal distribution. He has undergone epidural injections in the past. These proved somewhat beneficial, but his pain continues to be problematic. We have been helping to maintain pain control with the use of opioid medications. He also has a history of anxiety. He has an anxiety pet (is a Chihuahua that is always with him). He finds that her presence helps to decrease his anxiety. He has noted this pain and discomfort in his left arm. Has limited ability to move his left arm. States that he hurt it a few months ago. The left shoulder is problematic and he is unable to raise it to horizontal. He states that he has been given some exercises to increase its range of motion. This is by his primary physician. He says that it has not been very effective. ALLERGIES: No known drug allergies. ALLERGIES: FLOMAX. CURRENT MEDICATIONS: Hydrocodone 10/325 one p.o. b.i.d., Zithromax 500 mg, Glucotrol 5 mg b.i.d., Trulicity 0.75 mg, albuterol inhaler 2 puffs p.r.n., Flonase 0.05% nasal spray, Crestor 40 mg, Prilosec 20 mg, potassium 20 mEq, Viagra p.r.n. PAIN CLINIC ASSESSMENT AND PQRS: 1. The patient is not being treated for rheumatoid arthritis. 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 2. Height 6 feet 1 inch, weight 162 pounds, BMI is 21.4. 3. Vital Signs: Blood pressure 143/87, pulse 75, respiratory rate 14, room air saturation 98%. 4. Pain intensity 5/10. 5. Fall history: The patient has not fallen in the last 3 months. 6. Blood thinner. The patient is not on a blood thinner medication. 7. Hypertension. The patient is not being treated for hypertension. 8. Opioids greater than 6 weeks. The patient [place] [address] PAIN MANAGEMENT CONSULTATION Name: KETTY LOZADA Room #: REG CLI [facility].#: [id number] Admission: 08/23/18 ������������������ Attend Phys: Pari Ryder MD Discharge: ������������������ Date of : 40 Report #: [id number] source, the pain clinic. 9. Risk assessment tool, low for opioid use. 10. Functional assessment tool . 11. Recreational drug use. The patient denies use of recreational drugs. 12. Tobacco: The patient continues to smoke and smoked for the last 15 years, 1 pack per day. 13. Alcohol. The patient denies frequent use of alcoholic beverages. PHYSICAL EXAMINATION: GENERAL: The patient is a well-developed, well-nourished black male. He is alert, oriented x 3. His security dog/emotional dog, reum Doyle is present with a dress on. He dresses his dog with clothing. HEENT: Normocephalic, atraumatic. Extraocular eye muscles intact. Sclerae nonicteric. Mucous membranes are moist. NECK: Without adenopathy or JVD. The patient has pain and discomfort in the left shoulder. He has good range of motion in the right arm. Muscle strength judged to be 4+ in the right arm. Left arm, the patient uses his right arm to move it. He does not abduct his arm more than about 10 inches from the side. He is limited in his ability to range it. HEART: Regular rate. ABDOMEN: Nontender. Bowel sounds present. EXTREMITIES: Lower extremity, the patient has pain and discomfort in lower portion of his back with pain that continues to radiate down in the L5-S1 dermatomal distribution. IMPRESSION: 1. History of lumbar radiculopathy, L5-S1 dermatomal distribution that continues. 2. Complex medical regimen using opioid medications. 3. Limited movement in the left arm over the last month with clinical findings, which are consistent with frozen shoulder. 4. Diabetes. 5. Asthma. 6. History of ulcers/Crohn's disease. 7. Prostate cancer. 8. Hernia repair in 2006. 9. Gastroesophageal surgery in 1990. RECOMMENDATIONS: We discussed treatment options with the patient. We explained that his last injection on his last visit, it was negative for opioids and for Xanax. The patient states that his left shoulder has been so painful. He has been taking his medications and has run out by the end of the month. He has limited ability to move his arm. Try some walking up to wall, he has not been able to. He continues to have pain that radiates down into his buttocks in the L5-S1 distribution on the right. Also, we explained that he needs to as rapidly as possible start to increase the range of motion in his shoulder. Given his [facility] [address] [place] [address] PAIN MANAGEMENT CONSULTATION Name: KETTY LOZADA Room #: REG [facility]..#: [id number] Admission: 08/23/18 ������������������ Attend Phys: Pari Ryder MD Discharge: ������������������ Date of : 40 Report #: [id number] age, he could lose all functionality in his shoulder as a result of the worsening frozen shoulder situation. We would recommend that the patient go to physical therapy. If his pain continues to be problematic and little progress is made, we then refer the patient to [facility] for possibility of increasing range of motion after the patient has been sedated. We explained to him the need to take his medications as prescribed. States that he had informed the staff that he had not had his medications for a number of days because he had taken it earlier in the month because of the severity of his pain. We explained to him the need to follow would be compliant with his medications. If his studies do not indicate use of the medication, the assumption is that diversion his ongoing. The patient vehemently denies diversion of his medication. States that he is taking it. States that he is not showing positive results because of his pain, which has been so severe he is taking his medications and use them prior to being seen in the pain clinic. We have rewritten the patient's medications. A script for gabapentin 400 mg b.i.d., Xanax 0.5 mg 1 p.o. t.i.d., hydrocodone 10/325 one p.o. b.i.d. The patient will continue with physical therapy. A script has been written 3 times a week for the next 3 weeks. Should he need more time, we will provide that. We would like to thank you for letting us participate in his care. We hope he continues to improve. ��������������������������������������������� ���������������������������������������� By: ��������������������������������������������� [id number] Pari Ryder MD /XAV[facility]
[2018-08-23 08:11] VITALS: BP 143/87
--- NOTE | 2018-08-23 08:12 | NUR ---
Pain Clinic Assessment: 1. History of Osteoarthritis: Not Applicable History of Rheumatoid Arthritis: Not Applicable 2. Height: 6 ft. 1 in. 185.4 cm. Weight: 162.0 lb. oz. 73.483 kg. Patient's BMI: 21.4 3. Vital Signs: BP: 143/87 Pulse: 75 Resp: 14 Temp: 02 Sat: 98 ECG Mon: 4. Pain Intensity: 5 5. Fall Risk: Dizziness: N Needs help standing or walking: N Fallen in the last 3 months: N Fall risk comments: 6. Patient on Blood Thinner: None 7. History of Hypertension: N 8. Opioid Therapy greater than 6 weeks: Y Opiate Contract Signed: 02/04/17 9. Risk Assessment Tool Provided: LOW RISK 0 10. Functional Assessment Tool: 11. Recreational Drug Use: Past greater than 3 mos Drug Type: Tobacco Use: Current Every Day Smoker Tobacco Type: Cigarettes Amount or Packs/day: .1 How Many Years: 15 Alcohol Use: Yes Frequency: Monthly Quant: AT A DEMOCRAT ONLY
== END ==
LOC: PAIN 07:50
DX: M54.17 Radiculopathy, lumbosacral region (principal); M25.512 Pain in left shoulder; E11.9 Type 2 diabetes mellitus without complications; D64.9 Anemia, unspecified; C61 Malignant neoplasm of prostate; Z79.891 Long term (current) use of opiate analgesic

== ENCOUNTER → 2018-09-20 | Outpatient (CLI) | payer MEDICARE, OTHER ==
[~2018-09-20] VITALS: Ht 185.4 cm; Wt 73.0 kg
--- NOTE | ~2018-09-20 | HPC ---
[facility] [address] [place] [address] PAIN MANAGEMENT CONSULTATION Name: KETTY LOZADA Room #: REG RONDA Yulisa#: [id number] Admission: 09/20/18 Attend Phys: Pari Ryder MD Discharge: Date of : 40 Report #: [id number] THIS REPORT FOR: //name// CC: Agapito Ryder DATE OF SERVICE: 09/20/2018 PRIMARY CARE PHYSICIAN: Agapito Murphy MD CHIEF COMPLAINT: "I had an episode where I think my blood sugar went pretty low and I was sweating a lot." HISTORY: The patient is a 77-year-old gentleman who has been followed in the pain clinic because of chronic pain involving his low back. He continues to have pain in the L5-S1 dermatomal distribution. He is using opioid medications to help control the pain. This has been working well. He recently went to [employer]. After going to [employer], he decided to go out to get some items at the store. He noticed some profuse sweating after going to the grocery store. Had some difficulty with his vision and he noticed that it was somewhat blurry. He then drove home. After driving home, he opened his door to get out of the car. He was unable to. A neighbor noticed that he was still sitting in the car, she works as a healthcare provider. They helped him to get into his home. He then lay on the sofa for a while. He felt that he may have had some heat exhaustion. States that he fell off the sofa. The floor has carpet, so he was not injured. He then got in the bed. The following day, he started to feel better. He then saw his doctor, Dr. Murphy. A number of tests have been ordered. Overall, he is feeling reasonably good at this point. He thinks that it may have been associated with his sugar level. He had taken his diabetic medications, but has been only eating once a day. ALLERGIES: No known drug allergies. MEDICATIONS: Flomax. CURRENT MEDICATIONS: Hydrocodone 10/325 one p.o. b.i.d., Zithromax 500 mg, Glucotrol 5 mg b.i.d., Trulicity 0.75 mg, albuterol inhaler 2 puffs p.r.n., Flonase 0.05% nasal spray, Crestor 40 mg, Prilosec 20 mg, potassium 20 mEq, and Viagra p.r.n. PAIN CLINIC ASSESSMENT/PQRS: 1. The patient is not being treated for rheumatoid arthritis. He does have some osteoarthritic changes in the lower portion of his back. 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 Height 6 feet 1 inch, weight 161 pounds, BMI is 21.2. 2. Vital signs: Blood pressure 142/83, pulse 81, respiratory rate 16, room air [address] [address] PAIN MANAGEMENT CONSULTATION Name: KETTY LOZADA Room #: REG RONDA Márquez#: [id number] Admission: 09/20/18 Attend Phys: Pari Ryder MD Discharge: Date of : 40 Report #: [id number] saturation is 97%. 3. Pain intensity 04/16. 4. Fall history: The patient has not fallen in the last 3 months, but did have some difficulty getting out of the car a week ago. 5. Blood thinner. The patient is not taking a blood thinning medication. 6. Hypertension. The patient is not being treated for hypertension. 7. Opioids greater than 6 weeks. The patient receives medication from one source, the pain clinic. 8. Risk assessment tool, low for opioid use. 9. Functional assessment tool . 10. Recreational drug use. The patient denies use of recreational drugs. 11. Tobacco: The patient continues to smoke cigarettes 2-1/2 cigarettes per day. 12. Alcohol: The patient denies use of alcoholic beverages except on occasion. PHYSICAL EXAMINATION: GENERAL: The patient is a well-developed, well-nourished black male. He is alert and oriented. His affect is appropriate. Speech is fluent. His emotional dog is with him. She is in a dress. HEENT: Normocephalic, atraumatic. Extraocular eye muscles intact. Sclerae nonicteric. Mucous membranes are moist. NECK: Without adenopathy or JVD. HEART: Regular rate. ABDOMEN: Nontender. Bowel sounds present. EXTREMITIES: The patient still has some decreased range of motion in his left shoulder. Good range of motion on the right side. Muscle strength 5/5 for the major muscle groups on the right. 5-/5 on the left. Upper extremity muscle strength as described above. Lower extremity the patient has pain and discomfort in the L5-S1 dermatomal distribution. IMPRESSION: 1. History of lumbar radiculopathy with L5-S1 dermatomal distribution. 2. Recent difficulty with sensory changes most likely secondary to low blood sugar. The patient is being followed by his primary. 3. Limited use of his left arm over the last month with clinical findings consistent with frozen shoulder. 4. Diabetes. 5. Asthma. 6. History of ulcers/Crohn's disease. 7. Prostate cancer. 8. Hernia repair in 2006. 9. Gastroesophageal surgery in 1990. RECOMMENDATIONS: We discussed treatment options with the patient. At this juncture, we will continue with his medications. He feels that the medications are helpful. He feels an additional 5 hydrocodone medications might be [facility] [address] [place] [address] PAIN MANAGEMENT CONSULTATION Name: KETTY LOZADA Room #: REG CLCorey Salaazr.#: [id number] Admission: 09/20/18 Attend Phys: Pari Ryder MD Discharge: Date of : 40 Report #: [id number] beneficial and he would like to undertake this. He is being worked up by his primary physician in regards to the episode that he had where he had some difficulty because of profuse sweating, blurred vision and difficulty getting out of his car after getting home. We will consider increasing his medication in the future. He has been given a script for his medications. We explained to the patient the seriousness of taking his medication as prescribed that he should eat meals on a regular basis. The use of diabetic medications can cause once sugar to Clomid. This could put him in danger as well as those around him should he be driving. The weather has been reasonably hot. Had he been in a shopping center and parked out away from the crowd. This could have resulted in a very problematic situation. He states that he is aware of the severity and we will continue to follow up with his primary. We would like to thank you for letting us participate in his care. We hope he continues to improve. By: [id number] MD CHRISTINA Wisdom
[2018-09-20 08:07] VITALS: BP 142/83
--- NOTE | 2018-09-20 08:15 | NUR ---
Pain Clinic Assessment: 1. History of Osteoarthritis: Not Applicable History of Rheumatoid Arthritis: Not Applicable 2. Height: 6 ft. 1 in. 185.4 cm. Weight: 161.0 lb. oz. 73.029 kg. Patient's BMI: 21.2 3. Vital Signs: BP: 142/83 Pulse: 81 Resp: 16 Temp: 02 Sat: 97 ECG Mon: 4. Pain Intensity: 3 5. Fall Risk: Dizziness: Y Needs help standing or walking: N Fallen in the last 3 months: Y Fall risk comments: 6. Patient on Blood Thinner: None 7. History of Hypertension: N 8. Opioid Therapy greater than 6 weeks: Y Opiate Contract Signed: 02/04/17 9. Risk Assessment Tool Provided: LOW RISK 0 10. Functional Assessment Tool: 11. Recreational Drug Use: Past greater than 3 mos Drug Type: Tobacco Use: Current Every Day Smoker Tobacco Type: Cigarettes Amount or Packs/day: 2 1/2 CIGS How Many Years: Alcohol Use: Yes Frequency: Special Occasions Quant: 1
== END ==
LOC: PAIN 06:44
DX: M54.16 Radiculopathy, lumbar region (principal); E11.9 Type 2 diabetes mellitus without complications; J45.909 Unspecified asthma, uncomplicated; C61 Malignant neoplasm of prostate; Z88.8 Allergy status to other drugs, medicaments and biological substances; Z79.899 Other long term (current) drug therapy

== ENCOUNTER → 2018-10-18 | Outpatient (CLI) | payer MEDICARE, OTHER ==
[~2018-10-18] VITALS: Ht 185.4 cm; Wt 73.5 kg
--- NOTE | ~2018-10-18 | HPC ---
[facility] [place] [address] PAIN MANAGEMENT CONSULTATION Name: KETTY LOZADA Room #: REG KIKECorey Márquez#: [id number] Admission: 10/18/18 ������������������ Attend Phys: Pari Ryder MD Discharge: ������������������ Date of : 40 Report #: [id number] THIS REPORT FOR: //name// CC: Agapito Ryder DATE OF SERVICE: 10/18/2018 CHIEF COMPLAINT: Here for medication renewal. I am feeling pretty good. HISTORY: The patient is a 77-year-old gentleman, who has been followed in the pain clinic. As you recall, he has chronic low back pain. He has undergone epidural steroid injections in the past. At the L4-L5 dermatomal distribution, he continues to have pain. He has pain, which is improved with use of his medications. He has not had any complications with the medications. He did have some problems with his blood sugar a few weeks ago. He states that he went to [employer]oodoo and forgot to take his medication. As a result of that, he has some problems. His nurse neighbor helped him out. He then followed up with his primary physician. It was felt that he did not take his medications as prescribed. He has now felt he has a better understanding of when to take his medications. He has returned today with hopes of renewal of his medications. CURRENT MEDICATIONS: Hydrocodone 10/325 one p.o. b.i.d., Zithromax 500 mg, Glucotrol 5 mg b.i.d., Trulicity 0.75 mg, albuterol inhaler 2 puffs, Flonase 0.05% nasal spray, Crestor 40 mg, Prilosec 20 mg, potassium 20 mEq, and Viagra p.r.n. ALLERGIES: FLOMAX. PAIN CLINIC ASSESSMENT AND PQRS: 1. The patient is not being treated for rheumatoid arthritis. He does have some arthritic changes in the lower back. He has a frozen shoulder on the left side. 2. Pain intensity is zero now, can increase to the level of 10 when it is problematic. 3. Fall history: The patient has not fallen in the last 3 months. 4. Blood thinner. The patient is not on a blood thinning medication. 5. Hypertension. The patient is not being treated for hypertension. 6. Opioids greater than 6 weeks. The patient receives medication from one source, pain clinic. 7. Risk assessment tool, low for opioid risk. 8. Functional assessment tool, . 9. Recreational drugs. The patient denies recreational drugs. 10. Tobacco. The patient smokes daily. We have discussed the benefits of smoking cessation. 11. Alcohol: The patient occasionally drinks alcoholic beverages. [facility] [address] [place] [address] PAIN MANAGEMENT CONSULTATION Name: KETTY LOZADA Room #: REG CLCorey Márquez#: [id number] Admission: 10/18/18 ������������������ Attend Phys: Pari Ryder MD Discharge: ������������������ Date of : 40 Report #: [id number] PHYSICAL EXAMINATION: GENERAL: The patient is a well-developed, well-nourished black male. He appears his stated age. He is alert and oriented x 3. His affect is appropriate. Speech is fluent. Height is 6 feet 1 inch, weight is 162 pounds, and BMI is 24.1. VITAL SIGNS: Blood pressure is 151/84, pulse is 74, respiratory rate is 14, and room air saturation is 99%. HEENT: Normocephalic, atraumatic. Extraocular eye muscles intact. Sclerae nonicteric. Mucous membranes are moist. The patient has his dog/emotional pet with him. NECK: Without adenopathy or JVD. HEART: Regular rate. ABDOMEN: Nontender. Bowel sounds present. EXTREMITIES: Upper extremity muscle strength is judged to be 5/5 on the right side with decreased motion and muscle strength on the left side secondary to symptoms consistent with frozen shoulder. Lower extremity muscle strength is judged to be 5/5 for the major muscle groups in lower extremity. The patient continues to have pain that radiates down the L4-L5 dermatomal distribution of his leg. IMPRESSION: 1. History of lumbar radiculopathy with L5-S1 dermatomal distribution. 2. Recent difficulty with sensory changes secondary to blood sugar changes. 3. Limited use of left arm over the last month with clinical findings consistent with frozen shoulder. 4. Diabetes. 5. Asthma. 6. History of ulcers/Crohn's disease. 7. Prostate cancer. 8. Hernia repair in 2006. 9. Gastroesophageal surgery in 1990. RECOMMENDATIONS: We have discussed treatment options with the patient. At this juncture, we will continue with his medications. We have discussed the need to take his glucose medications as prescribed. He feels that he is aware of the complications of not taking the medication and will do so better in the future. He feels that his medications are helpful. On occasion, he has days, which are quite problematic. He would like to increase on those occasions from one p.o. b.i.d. to 3 pills daily. We will increase his medication from 60 tablets per month to 75 tablets per month. He will also continue to work toward increasing mobility in his left arm because of the frozen shoulder. He will call us if he has any concerns. [address] [address] PAIN MANAGEMENT CONSULTATION Name: KETTY LOZADA Room #: REG [facility]..#: [id number] Admission: 10/18/18 ������������������ Attend Phys: Pari Ryder MD Discharge: ������������������ Date of : 40 Report #: [id number] We would like to thank you for letting us to participate in his care. We hope he continues to improve. ��������������������������������������������� ���������������������������������������� By: ��������������������������������������������� [id number] Pari Ryder MD /PMT
[2018-10-18 08:11] VITALS: BP 153/81
--- NOTE | 2018-10-18 08:16 | NUR ---
Pain Clinic Assessment: 1. History of Osteoarthritis: Not Applicable History of Rheumatoid Arthritis: Not Applicable 2. Height: 6 ft. 1 in. 185.4 cm. Weight: 162.0 lb. oz. 73.483 kg. Patient's BMI: 21.4 3. Vital Signs: BP: 153/81 Pulse: 74 Resp: 14 Temp: 02 Sat: 99 ECG Mon: 4. Pain Intensity: 0 NOW 10 WHEN BAD 5. Fall Risk: Dizziness: N Needs help standing or walking: N Fallen in the last 3 months: N Fall risk comments: 6. Patient on Blood Thinner: None 7. History of Hypertension: N 8. Opioid Therapy greater than 6 weeks: Y Opiate Contract Signed: 02/04/17 9. Risk Assessment Tool Provided: LOW RISK 0 10. Functional Assessment Tool: 11. Recreational Drug Use: Past greater than 3 mos Drug Type: Tobacco Use: Current Every Day Smoker Tobacco Type: Amount or Packs/day: How Many Years: Alcohol Use: Yes Frequency: Quant:
== END ==
LOC: PAIN 06:44
DX: M54.16 Radiculopathy, lumbar region (principal); E11.9 Type 2 diabetes mellitus without complications; J45.909 Unspecified asthma, uncomplicated; C61 Malignant neoplasm of prostate; Z79.899 Other long term (current) drug therapy; Z88.8 Allergy status to other drugs, medicaments and biological substances

== ENCOUNTER → 2018-11-15 | Outpatient (CLI) | payer MEDICARE, OTHER ==
[~2018-11-15] VITALS: Ht 185.4 cm; Wt 72.6 kg
[2018-11-15 08:08] VITALS: BP 139/78
--- NOTE | 2018-11-15 08:18 | NUR ---
Pain Clinic Assessment: 1. History of Osteoarthritis: Not Applicable History of Rheumatoid Arthritis: Not Applicable 2. Height: 6 ft. 1 in. 185.4 cm. Weight: 160.0 lb. oz. 72.576 kg. Patient's BMI: 21.1 3. Vital Signs: BP: 139/78 Pulse: 82 Resp: 16 Temp: 02 Sat: 95 ECG Mon: 4. Pain Intensity: 8 5. Fall Risk: Dizziness: N Needs help standing or walking: N Fallen in the last 3 months: N Fall risk comments: 6. Patient on Blood Thinner: None 7. History of Hypertension: N 8. Opioid Therapy greater than 6 weeks: Y Opiate Contract Signed: 02/04/17 9. Risk Assessment Tool Provided: LOW RISK 0 10. Functional Assessment Tool: 11. Recreational Drug Use: Past greater than 3 mos Drug Type: Tobacco Use: Current Every Day Smoker Tobacco Type: Cigarettes Amount or Packs/day: How Many Years: Alcohol Use: Yes Frequency: Quant:
--- NOTE | 2018-12-15 08:25 | HPC ---
[facility] [place] [address] PAIN MANAGEMENT CONSULTATION Name: KETTY LOZADA Room #: REG KIKECorey Márquez#: [id number] Admission: 11/15/18 Attend Phys: Pari Ryder MD Discharge: Date of : 40 Report #: [id number] THIS REPORT FOR: //name// CC: Agapito Ryder DATE OF SERVICE: 11/15/2018 CHIEF COMPLAINT: "Medications helpful. I am here for renewal of medication." HISTORY: The patient is a 77-year-old gentleman who has been followed in the pain clinic. As you recall, he suffers from back pain. He has undergone a number of epidural steroid injections. They have been helpful in the past. At this juncture, we are using a conservative approach to control the pain. He finds that use of hydrocodone is beneficial. He is able to engage in activities of daily living, he would not be able to without their use. He is not having any complications from the medication. He states that he has taken the medications as prescribed. As you recall, he did have some problems with his blood sugars at the last visit. It is not as problematic at this point. He continues to monitor his blood sugars. He rates his pain as an 8/10 today. He would like to continue with his medications. He is trying to stop smoking cigarettes. CURRENT MEDICATIONS: Hydrocodone 10/325 mg one p.o. b.i.d., Zithromax 500 mg, Glucotrol 5 mg b.i.d., Trulicity 0.75 mg, albuterol inhaler 2 puffs, Flonase 0.05% nasal spray, Crestor 40 mg, Prilosec 20 mg, potassium 20 mEq and Viagra p.r.n. ALLERGIES: FLOMAX. PAIN CLINIC ASSESSMENT AND PQRS: 1. The patient is not being treated for rheumatoid arthritis. He does have some arthritic changes in his lower back. He does have a frozen shoulder in the left side. 2. Height 6 feet 1 inch, weight 160 pounds, BMI is 21.1. 3. Vital Signs: Blood pressure 139/78, pulse 82, respiratory rate 16, room air saturation 95%. 4. Pain intensity 09/16. 5. Fall risk. The patient has not fallen in the last 3 months. 6. Blood thinner. The patient is not on a blood thinning medication. 7. Hypertension. The patient is not being treated for hypertension. 8. Opioids greater than 6 weeks. The patient received medication from one source, the pain clinic. 9. Risk assessment tool, low for opioid use. 10. Functional assessment tool . 11. Recreational drug use: The patient denies. [address] [address] PAIN MANAGEMENT CONSULTATION Name: KETTY LOZADA Room #: REG CLI Martin.#: [id number] Admission: 11/15/18 Attend Phys: Pari Ryder MD Discharge: Date of : 40 Report #: [id number] 12. Tobacco: The patient smokes cigarettes. 13. Alcohol: The patient occasionally drinks alcoholic beverages. PHYSICAL EXAMINATION: GENERAL: The patient is a well-developed, well-nourished black male. Appears his stated age. He is alert and oriented x 3. Affect is appropriate. Speech is fluent. HEENT: Normocephalic, atraumatic. Extraocular eye muscles intact. Sclerae nonicteric. Mucous membranes are moist. NECK: Without adenopathy or JVD. HEART: Regular rate. ABDOMEN: Nontender. Bowel sounds present. EXTREMITIES: Upper extremity muscle strength judged to be 5/5 on the right. The patient has some decreased range of motion with left side secondary to frozen shoulder type symptomatology. He continues to increase its range of motion. Lower extremity muscle strength judged to be 5-/5 for the major muscle groups in the lower extremity. The patient continues to have pain that radiates down the L5 and L4 dermatomal distribution as well as the L5-S1 area. The patient is accompanied by his pet dog. IMPRESSION: 1. History of lumbar radiculopathy with L5-S1 dermatomal distribution. 2. Recent history of difficulty with blood sugars, more stable at this juncture. 3. Limited use of his left arm over the last month with clinical findings consistent with frozen shoulder. The patient has been given a script for physical therapy. 4. Diabetes. 5. Asthma. 6. History of ulcers/Crohn's disease. 7. Prostate cancer. 8. Hernia repair in 2006. 9. Gastroesophageal surgery in 1990. RECOMMENDATIONS: We discussed treatment options with the patient. At this juncture, we will continue with his medications. He feels medications are helpful. He states that he has taken the medication as prescribed. He is aware that opioid medications can be problematic. He is aware that 70,000 people last year as a result of overdosing on medications. He has taken his medication as prescribed. He feels that the medications when in conjunction with his activities help to improve his quality of life. We will continue with the patient's use of opioid medications to help control the pain, which he is experiencing. We would like to thank you for letting us participate in his care. A script for his medications has been renewed. He will continue with hydrocodone [address] [address] PAIN MANAGEMENT CONSULTATION Name: KETTY LOZADA Room #: [facility] [id number] Admission: 11/15/18 Attend Phys: Pari Ryder MD Discharge: Date of : 40 Report #: [id number] p.o. b.i.d. Continue with alprazolam 0.5 mg. A script for these medications have been written. He will also continue with gabapentin 400 mg one p.o. b.i.d. <ELECTRONICALLY SIGNED> By: Pari Ryder MD 12/15/18 0825 [id number] Pari Ryder MD /nt
== END ==
LOC: PAIN 06:55
DX: M54.16 Radiculopathy, lumbar region (principal); E11.9 Type 2 diabetes mellitus without complications; J45.909 Unspecified asthma, uncomplicated; C61 Malignant neoplasm of prostate

== ENCOUNTER → 2018-12-13 | Outpatient (CLI) | payer MEDICARE, OTHER ==
[~2018-12-13] VITALS: Ht 185.4 cm; Wt 73.9 kg
[2018-12-13 08:07] VITALS: BP 154/83
--- NOTE | 2018-12-13 08:13 | NUR ---
Pain Clinic Assessment: 1. History of Osteoarthritis: Not Applicable History of Rheumatoid Arthritis: Not Applicable 2. Height: 6 ft. 1 in. 185.4 cm. Weight: 163.0 lb. oz. 73.936 kg. Patient's BMI: 21.5 3. Vital Signs: BP: 154/83 Pulse: 78 Resp: 16 Temp: 02 Sat: 98 ECG Mon: 4. Pain Intensity: 7 5. Fall Risk: Dizziness: N Needs help standing or walking: N Fallen in the last 3 months: N Fall risk comments: 6. Patient on Blood Thinner: None 7. History of Hypertension: N 8. Opioid Therapy greater than 6 weeks: Y Opiate Contract Signed: 02/04/17 9. Risk Assessment Tool Provided: LOW RISK 0 10. Functional Assessment Tool: 11. Recreational Drug Use: Past greater than 3 mos Drug Type: Tobacco Use: Current Every Day Smoker Tobacco Type: Amount or Packs/day: How Many Years: Alcohol Use: Yes Frequency: Quant:
--- NOTE | 2019-01-02 09:25 | HPC ---
[facility] [address] [place] [address] PAIN MANAGEMENT CONSULTATION Name: KETTY LOZADA Room #: REG RONDA Yulisa#: [id number] Admission: 12/13/18 Attend Phys: Pari Ryder MD Discharge: Date of : 40 Report #: [id number] THIS REPORT FOR: //name// CC: Agapito Ryder DATE OF SERVICE: 12/13/2018 CHIEF COMPLAINT: Medications are still helpful in controlling the pain. HISTORY: The patient is a 77-year-old gentleman who has been followed in the pain clinic. Continues to suffer from back pain. Epidural steroid injections have been helpful in the past. Over the long run, he has continued to have pain and discomfort and has been helping to control his pain with use of opioid medications and finds that they have been helpful. Continues to have pain, which is primarily down the right leg. There is numbness and weakness associated with his right foot. Also, has some low back discomfort. He has some problems with his left shoulder. He is unable to lift it as high as he would like. Beginning to show some signs of frozen shoulder. He states his blood sugars have been reasonable. Rates his pain today as a 7/10. Pain is made worse when he is standing. Improves with use of his medications. Sitting as well as elevating his leg can be helpful. ALLERGIES: FLOMAX. CURRENT MEDICATIONS: Hydrocodone 10/325 one p.o. b.i.d., Zithromax 500 mg, Glucotrol 5 mg b.i.d., Trulicity 0.7 mg, albuterol inhaler 2 puffs, Flonase 0.05% nasal spray, Crestor 40 mg, Prilosec 20 mg, potassium 20 mEq, and Viagra p.r.n. PAIN CLINIC ASSESSMENT AND PQRS: 1. The patient is not being treated for rheumatoid arthritis. He does have some arthritic changes in his lower back. 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 2. Height 6 feet 1 inch, weight 163 pounds, BMI is 21.5. 3. Vital signs: Blood pressure 154/83, pulse 78, respiratory rate 16, room air saturation is 98%. 4. Pain intensity 08/16. 5. Fall risk. The patient has not fallen in the last 3 months. 6. Blood thinner. The patient is not on a blood thinning medication. 7. Hypertension. The patient is being treated for hypertension. 8. Opioids greater than 6 weeks. The patient received medication from one source, the pain clinic. 9. Risk assessment tool, low for opioid use. 10. Functional assessment tool . 11. Tobacco: The patient continues to smoke tobacco. Risks and benefits of [facility] [address] [place] [address] PAIN MANAGEMENT CONSULTATION Name: KETTY LOZADA Room #: REG CLI Martin.#: [id number] Admission: 12/13/18 Attend Phys: Pari Ryder MD Discharge: Date of : 40 Report #: [id number] smoking cessation have been discussed. 12. Alcohol: The patient drinks alcoholic beverages on occasion. PHYSICAL EXAMINATION: GENERAL: The patient is a well-developed, well-nourished black male, appears his stated age. He is alert and oriented x 3. His affect is appropriate. Speech is fluent. HEENT: Normocephalic, atraumatic. Extraocular eye muscles intact. Sclerae nonicteric. Mucous membranes are moist. NECK: Without adenopathy or JVD. HEART: Regular rate. ABDOMEN: Nontender. EXTREMITIES: Upper extremity muscle strength judged to be 5/5 on the right side. The patient has some decreased muscle strength secondary to frozen shoulder on the left. The patient has pain and discomfort down the lower portion of his back in the L5-S1 dermatomal distribution as well as the L4-L5 on the low back area. IMPRESSION: 1. Decreased range of motion of the left arm with clinical findings consistent with frozen shoulder. 2. Diabetes. 3. Asthma. 4. History of ulcers, Crohn's disease. 5. Prostate cancer. 6. Hernia repair. 7. Gastroesophageal surgery in 1990. RECOMMENDATIONS: We discussed treatment options with the patient. At this juncture, we will continue with his current medical regimen. A script for his medications has been renewed. The patient will continue with gabapentin 400 mg 1 p.o. b.i.d. We will also continue with hydrocodone 10/325 one p.o. t.i.d. as needed. The patient feels that the Xanax medication continues to be helpful. Enables him to stay more relaxed. He still has his motion support with his dog. A script for Xanax 0.5 mg 1 p.o. t.i.d. has been written. We will also continue with the hydrocodone. The patient is aware that 70,000 people last year as a result of overdosing of medications. He feels that he is using his medications as prescribed. He would like to continue with their use. A script for his medications has been provided for the patient. He will call us if he has any concerns. He does not feel that the Xanax medication is causing any problems in conjunction with use of the hydrocodone. Feels his mental [facility] [address] [place] [address] PAIN MANAGEMENT CONSULTATION Name: KETTY LOZADA Room #: REG [facility].#: [id number] Admission: 12/13/18 Attend Phys: Pari Ryder MD Discharge: Date of : 40 Report #: [id number] status is stable and he has not noted any clouding of his sensorium with their use. <ELECTRONICALLY SIGNED> By: Pari Ryder MD 01/02/19 0925 [id number] Pari Ryder MD /nt
== END ==
LOC: PAIN 06:48
DX: M54.9 Dorsalgia, unspecified (principal); E11.9 Type 2 diabetes mellitus without complications; J45.909 Unspecified asthma, uncomplicated; C61 Malignant neoplasm of prostate

== ENCOUNTER → 2019-01-12 | Outpatient (CLI) | payer MEDICARE, OTHER ==
[~2019-01-12] VITALS: Ht 185.4 cm; Wt 73.9 kg
[2019-01-12 08:11] VITALS: BP 148/88
--- NOTE | 2019-01-12 08:21 | NUR ---
Pain Clinic Assessment: 1. History of Osteoarthritis: Not Applicable History of Rheumatoid Arthritis: Not Applicable 2. Height: 6 ft. 1 in. 185.4 cm. Weight: 163.0 lb. oz. 73.936 kg. Patient's BMI: 21.5 3. Vital Signs: BP: 148/88 Pulse: 81 Resp: 16 Temp: 02 Sat: 98 ECG Mon: 4. Pain Intensity: 7-TODAY 5. Fall Risk: Dizziness: N Needs help standing or walking: N Fallen in the last 3 months: N Fall risk comments: 6. Patient on Blood Thinner: None 7. History of Hypertension: N 8. Opioid Therapy greater than 6 weeks: Y Opiate Contract Signed: 02/04/17 9. Risk Assessment Tool Provided: LOW RISK 0 10. Functional Assessment Tool: 11. Recreational Drug Use: Past greater than 3 mos Drug Type: Tobacco Use: Current Every Day Smoker Tobacco Type: Amount or Packs/day: How Many Years: Alcohol Use: Yes Frequency: Quant:
--- NOTE | 2019-01-12 11:51 | HPC ---
[facility] [address] [address] PAIN MANAGEMENT CONSULTATION Name: KETTY LOZADA Room #: REG Corey Salazar.#: [id number] Admission: 01/12/19 Attend Phys: Dorcas Abdullahi Discharge: Date of : 40 Report #: [id number] THIS REPORT FOR: //name// CC: Dorcas Ryder MD DATE OF SERVICE: 01/12/2019 CHIEF COMPLAINT: Chronic back pain. HISTORY OF PRESENT ILLNESS: This is a 78-year-old gentleman who returns to the pain clinic today for refill of his medications. He finds them beneficial in controlling his low back pain does radiate into his right leg to his foot with occasional cramping, throbbing pain in his leg. He feels that the medicines are beneficial despite rating his pain at 7/10 today. He reports sitting and elevating his legs are also beneficial. He denies any problems with constipation or daytime sleepiness from his medications. The patient's blood pressure was elevated again today while here in the office. He reported it was high last primary care visit as well. He is calling them to make an appointment. He also reported to us that his PSA level was elevated and he is going to see Dr. Khan for followup. He had a history of prostate cancer in the past that was treated with surgery. ALLERGIES: FLOMAX. CURRENT LIST OF MEDICATIONS: Hydrocodone 10/325 p.r.n., Xanax 0.5 t.i.d., Neurontin, buspirone, Glucotrol, Trulicity, ProAir, Crestor and Prilosec. PQRS: 1. The patient is not being treated for rheumatoid arthritis. He does have arthritic changes in his lumbar spine and his shoulder. 2. Height is 6 feet 1 inch, weight is 163, BMI is 21. 3. Blood pressure is 148/88, pulse is 81, respirations 16, oxygen sat is 98. 4. Pain score 7/10. 5. Denies dizziness, does not need help walking or standing, has not fallen in the last 3 months. 6. The patient is not on any blood thinners or hypertension medicines, though elevated again today. 7. Opioid therapy is greater than 6 weeks; therefore, an opioid signed contract is on the chart. Risk assessment tool is low. Functional assessment is . 8. Recreational drug use in the past. He is a current smoker and occasionally drinks alcohol. [facility] [address] [place] [address] PAIN MANAGEMENT CONSULTATION Name: KETTY LOZADA Room #: REG CLCorey Márquez#: [id number] Admission: 01/12/19 Attend Phys: Dorcas Abdullahi Discharge: Date of : 40 Report #: [id number] According to the prescription monitoring system, the patient is filling appropriately for his medications in a timely fashion. He is due for those medications today. According to the CDC guidelines, his current morphine mEq per day is 20-30 morphine mEq. There is a recent drug screen on the chart. PHYSICAL EXAMINATION: GENERAL: This is a well-developed, well-nourished 78-year-old black gentleman who appears his stated age. He is alert and orientated. His affect is appropriate. HEENT: Normocephalic, atraumatic. Extraocular eye muscles are intact. Mucous membranes are moist. NECK: Without adenopathy or JVD. EXTREMITIES: The patient has decreased muscle strength secondary to frozen shoulder on his left. His upper extremity strength judged to be 5/5 on the right. He has discomfort in his lumbar portion of his back following the L5-S1 dermatomal distribution radiating down his right leg. IMPRESSION: 1. Diabetes, low back pain, decreased range of motion of his left arm due to frozen shoulder. 2. History of lumbar radiculopathy following the L5-S1 dermatomal distribution. 3. History of prostate cancer, recent increase in PSA. 4. Hypertension. 5. Complex medical management under terms of written opioid agreement. We reviewed the fact that opiate medications are being used to provide analgesia adequate to support activities of daily living, not attempting to achieve a specific pain score on the 0-10 Visual Analog Scale. The current opiate medications are providing sufficient analgesia to allow the patient to participate in activities of daily living. The patient is not exhibiting any aberrant behavior suggestive of drug diversion. The patient is not having any adverse reactions to medications. The patient is not suffering from daytime somnolence or mental acuity changes. The patient is managing opiate-induced constipation with appropriate tcqj-[id number] agents and dietary considerations. The patient was counseled on concern for caution with operating a motor vehicle while using opiate medications. PLAN: 1. We discussed treatment options with the patient today. The patient finds his medication very beneficial. We did discuss the risks of taking a benzodiazepine and opioid. He has been stable on these meds for quite some time and is aware of the risks those. He finds both very beneficial in treating his anxiety and his pain. 2. We did discuss his elevated blood pressure. He is seeking medical attention on Tuesday with his primary care office. 3. Scripts given today for hydrocodone 10, #75 for 1-month supply and [facility] [address] [place] [address] PAIN MANAGEMENT CONSULTATION Name: KETTY LOZADA Room #: REG RONDA SalazarMarc#: [id number] Admission: 01/12/19 Attend Phys: Dorcas Abdullahi Discharge: Date of : 40 Report #: [id number] alprazolam 0.5 mg, #90. 4. The patient will return in 1 month for followup. The patient is seen in collaboration today with Dr. Gunnar Ryder. <ELECTRONICALLY SIGNED> By: Dorcas Abdullahi 01/12/19 1151 [id number] Dorcas Abdullahi /don
== END ==
LOC: PAIN 01-10 06:53
DX: M54.16 Radiculopathy, lumbar region (principal); M54.5 Low back pain; C61 Malignant neoplasm of prostate; I10 Essential (primary) hypertension; Z79.891 Long term (current) use of opiate analgesic

== ENCOUNTER → 2019-02-09 | Outpatient (CLI) | payer MEDICARE, OTHER ==
[~2019-02-09] VITALS: Ht 185.4 cm; Wt 74.4 kg
[2019-02-09 10:27] VITALS: BP 146/81
--- NOTE | 2019-02-13 08:23 | HPC ---
[facility] [address] [place] [address] PAIN MANAGEMENT CONSULTATION Name: KETTY LOZADA Room #: REG Corey MTrenton.#: [id number] Admission: 02/09/19 Attend Phys: Dorcas Abdullahi Discharge: Date of : 40 Report #: [id number] THIS REPORT FOR: //name// CC: Dorcas Murphy DATE OF SERVICE: 02/09/2019 CHIEF COMPLAINT: Low back pain, right foot pain. HISTORY OF PRESENT ILLNESS: The patient reports a pain score of 5/10 today in his foot. He says his back is an 8/10. It is worse with standing on it and any activity. It is a throbbing, aching pain that is fairly constant in his foot. He feels that removing his shoe and elevating his foot are very beneficial. The patient does report that he would like to change his Xanax medication to Klonopin. He feels that he is not able to stay asleep as long in the nighttime as he used to when he takes his Xanax dose and he would like to change this medication. Otherwise, he is in need of a refill of his hydrocodone today. ALLERGIES: TAMSULOSIN. CURRENT LIST OF MEDICATIONS: Hydrocodone 10/325 p.r.n., alprazolam 0.5 mg t.i.d., gabapentin 400 mg b.i.d., buspirone 10 mg daily, Glucotrol 5 mg b.i.d., Trulicity weekly and Prilosec. PQRS: 1. He is not being treated for rheumatoid arthritis, but he has arthritic changes in his lumbar spine, hands and shoulders. 2. Height is 6 feet 1 inch, weight is 164, BMI is 21. 3. Vital signs 146/81, pulse is 78, respirations 16, oxygen sat is 98. 4. Pain score is 5/10 in his foot, 8/10 in his back. 5. Denies dizziness, does not need help walking or standing, has not fallen in the last 3 months. 6. The patient is not on any blood thinners or medicines for hypertension. 7. Opioid therapy is greater than 6 weeks; therefore, an opioid signed contract is on the chart. Risk assessment tool is low. Functional assessment is 48/70. 8. Recreational drug use in the past and currently, current smoker of tobacco products as well as alcohol. According to the prescription monitoring system, the patient is filling his medications appropriately. He is due to fill those today. We did discuss a recent drug screen that did show positive for marijuana. I explained to him in depth that we will not be able to continue his opioid medications if he does continue to smoke marijuana. The patient is requesting to find out more information about switching to medical marijuana. He feels that will be more [address] [address] PAIN MANAGEMENT CONSULTATION Name: KETTY LOZADA Room #: REG CL Yulisa#: [id number] Admission: 02/09/19 Attend Phys: Dorcas Abdullahi Discharge: Date of : 40 Report #: [id number] beneficial in controlling his pain. I explained to him that we will gladly give him a card for a doctor that he can seek information for this, but in the meantime, since it is currently not legal, we cannot have him continue marijuana and his opioids. He will have to make a choice. Patient wishes at this time to continue his opioids and he reports he will stop using marijuana. I explained to him also that his alprazolam dose was fairly low. He needs to take his medication as prescribed on a regular basis. We have had issues with negative drug screens in the past and I explained to the patient that we need to follow up with him and have consistent screens with his medications, showing positive results or we will no longer be able to write for these medicines. The patient verbalizes understanding. PHYSICAL EXAMINATION: GENERAL: This is a well-developed, well-nourished 78-year-old gentleman who appears his stated age, placing his current pain score at 5-8/10 today. HEENT: Normocephalic, atraumatic. Extraocular eye muscles are intact. Mucous membranes are moist. He does have slight dark circles around his eyes today. He reports lack of sleep. NECK: Without adenopathy or JVD. EXTREMITIES: The patient has pain in his right foot today. It is numbness and tingly. He also reports discomfort in his lumbar back following the L5-S1 dermatomal distribution radiating down his right leg. His upper extremity strength is decreased on the left side 4/5. IMPRESSION: 1. History of lumbar radiculopathy following the L5-S1 dermatomal distribution. 2. Diabetes. 3. Low back pain. 4. Right shoulder pain, history of frozen shoulder. 5. History of prostate cancer, recent increase in his PSA, being followed by urologist. 6. Hypertension. 7. Complex medical management under terms of written opioid agreement. 8. Positive for THC in his recent urine counseling given. We reviewed the fact that opiate medications are being used to provide analgesia adequate to support activities of daily living, not attempting to achieve a specific pain score on the 0-10 Visual Analog Scale. The current opiate medications are providing sufficient analgesia to allow the patient to participate in activities of daily living. The patient is not exhibiting any aberrant behavior suggestive of drug diversion. The patient is not having any adverse reactions to medications. The patient is not suffering from daytime somnolence or mental acuity changes. The patient is managing opiate-induced constipation with appropriate [id number] agents and dietary considerations. The patient was counseled on concern for caution with operating a motor vehicle while using opiate medications. [facility] [address] [place] [address] PAIN MANAGEMENT CONSULTATION Name: KETTY LOZADA Room #: REG RONDA Márquez#: [id number] Admission: 02/09/19 Attend Phys: Dorcas Abdullahi Discharge: Date of : 40 Report #: [id number] A physical exam was performed and the patient's functional status was evaluated. All patients with back pain were advised against the bed rest greater than 4 days and were advised to return to normal activities. Pain score assessment was noted and the treatment plan was reviewed with the patient. All current medications, both prescribed and OTC were reviewed and reconciled on the electronic medical record. Tobacco screening was accomplished and smoking cessation was advised when indicated. BMI was noted and diet/exercise modification was recommended for all patients following outside normal parameters. I reviewed with the patient today their responsibilities to safeguard prescription medications, reviewed their responsibility to utilize medications only as prescribed by the physician. They are to seek and receive pain medications only from 1 physician group ([facility]). They are to use 1 pharmacy and keep the clinic informed if they change pharmacies. Their responsibilities include making followup visits in a timely fashion and to avoid abrupt discontinuation of medication usage. Their responsibilities further include bringing their medications (bottles from the pharmacy with residual pills) to the visit for possible confirmation of pill counts and the patient understands it is their responsibility to submit to random drug screens to ensure both that the medications prescribed are present, and that no other controlled substances are present. All prescriptions provided today were generated electronically. PLAN: 1. We discussed treatment options with the patient today. I have given the patient a card for [employer] to discuss medical marijuana. I encouraged the patient to stop using any marijuana products when he continue his opioid medications. The patient verbalizes understanding. 2. The patient is requesting to change to Klonopin from Xanax. I explained to him that is not normal. We do not normally write for benzodiazepines. We had done it as a favor, so he did not have to see his primary care doctor on a monthly basis since he comes here on a monthly basis. I encouraged him to talk to Dr. Murphy at his next visit to see if he is willing to change him to a different benzodiazepine. We will continue on his Xanax for this month. 3. Scripts given today for Xanax 0.5 mg #90 and hydrocodone 10/325, #75. 4. The patient will follow up with us in 1 month. Appointment made. The patient is seen today in collaboration with Dr. Gunnar Ryder. <ELECTRONICALLY SIGNED> By: Dorcas Abdullahi 02/13/19 0823 [id number] Dorcas Abdullahi /nt
== END ==
LOC: PAIN 06:51
DX: M54.16 Radiculopathy, lumbar region (principal); E11.9 Type 2 diabetes mellitus without complications; M54.5 Low back pain; I10 Essential (primary) hypertension; Z79.891 Long term (current) use of opiate analgesic

== ENCOUNTER → 2019-03-09 | Outpatient (CLI) | payer MEDICARE, OTHER ==
[~2019-03-09] VITALS: Ht 185.4 cm; Wt 74.4 kg
[2019-03-09 08:19] VITALS: BP 125/75
--- NOTE | 2019-03-09 08:21 | NUR ---
Pain Clinic Assessment: 1. History of Osteoarthritis: B/L HANDS B/L SHOULDERS History of Rheumatoid Arthritis: Not Applicable 2. Height: 6 ft. 1 in. 185.4 cm. Weight: 164.0 lb. oz. 74.390 kg. Patient's BMI: 21.6 3. Vital Signs: BP: 125/75 Pulse: 85 Resp: 18 Temp: 02 Sat: 100 ECG Mon: 4. Pain Intensity: 6 5. Fall Risk: Dizziness: N Needs help standing or walking: N Fallen in the last 3 months: N Fall risk comments: 6. Patient on Blood Thinner: None 7. History of Hypertension: N 8. Opioid Therapy greater than 6 weeks: Y Opiate Contract Signed: 02/04/17 9. Risk Assessment Tool Provided: LOW RISK 0 10. Functional Assessment Tool: 11. Recreational Drug Use: Past greater than 3 mos Drug Type: Tobacco Use: Current Every Day Smoker Tobacco Type: Cigarettes Amount or Packs/day: 1/4 How Many Years: Alcohol Use: Unknown Frequency: Quant:
--- NOTE | 2019-03-12 16:07 | HPC ---
[facility] [address] [place] [address] PAIN MANAGEMENT CONSULTATION Name: KETTY LOZADA Room #: REG Corey MTrenton.#: [id number] Admission: 03/09/19 Attend Phys: Dorcas Abdullahi Discharge: Date of : 40 Report #: [id number] THIS REPORT FOR: cc: Agapito Murphy MD, Kirk D. MD Hocker, Dorcas SÁNCHEZ ~ THIS REPORT FOR: //name// DATE OF SERVICE: 03/09/2019 CHIEF COMPLAINT: Low back pain, right foot pain. HISTORY OF PRESENT ILLNESS: This is a 78-year-old gentleman who returns to the clinic today for refill of his hydrocodone and alprazolam that we use to help treat some anxiety as well as his right foot and back pain. He is reporting a pain score of 6/10 today, is an aching, throbbing pain with occasional tingly feeling. It is worse when he is standing for prolonged periods of time and walking. He feels the medicine as well as sitting and elevating his legs are beneficial. The patient does report today that he thought about our last month's discussion regarding medical marijuana versus opioids. He has decided that he cannot afford to use medical marijuana since it is not covered by insurance. He reports he has not used any marijuana in 3 weeks and is going to only take his hydrocodone and see Dr. Ryder. Therefore, he is requesting refills of this medicine today. The patient does report he has appointment with Dr. Murphy next week to have his PSA levels drawn. He was awaiting an appointment with his urologist that was not made through a misunderstanding, so he is going to have an appointment and possibly an MRI next week. The patient will report back to us the findings. ALLERGIES: FLOMAX. CURRENT LIST OF MEDICATIONS: Hydrocodone 10/325 p.r.n., alprazolam 0.5 mg t.i.d., gabapentin 400 mg b.i.d., buspirone, Glucotrol, Trulicity, ProAir, and Prilosec. PQRS: 1. He is not being treated for rheumatoid arthritis. He has arthritic changes in his spine, hands, and shoulders. 2. Height is 6 feet 1 inch, weight is 164, and BMI is 21. 3. Vital signs 125/75, pulse is 85, respirations 18, and oxygen sat is 100%. 4. Pain score 6/10. 5. Denies dizziness, does not need help walking or standing, has not fallen in the last [address] [place] [address] PAIN MANAGEMENT CONSULTATION Name: KETTY LOZADA Room #: REG CLCorey Márquez#: [id number] Admission: 03/09/19 Attend Phys: Dorcas Abdullahi Discharge: Date of : 40 Report #: [id number] 6. The patient is not on any blood thinners or does not take medicine for hypertension. 7. Opioid therapy is greater than 6 weeks; therefore, an opioid signed contract on the chart. Risk assessment tool is low. Functional assessment is 48/70. 8. Recreational drug use in the past, current smokes about a fourth of a pack of cigarettes a day and does not drink alcohol. According to the prescription monitoring system, the patient is filling in a timely fashion. He is due to fill his medications today, taking those prescriptions from only one physician. According to the CDC guidelines, his morphine milliequivalent per day is 25, well under the CDC guidelines. PHYSICAL EXAMINATION: GENERAL: This is a well-developed, well-nourished 78-year-old gentleman who appears his stated age, placing his current pain score at 6/10 today. HEENT: Normocephalic, atraumatic. Extraocular eye muscles are intact. Mucous membranes are moist. NECK: Without adenopathy or JVD. EXTREMITIES: Has discomfort in his lumbar spine that radiates down the L5-S1 dermatomal distribution greater on the right leg. His lower extremity strength judged to be 5/5 in all major muscle groups. He has numbness and tingly that radiates into his right foot. IMPRESSION: 1. History of lumbar radiculopathy following the L5-S1 dermatomal distribution. 2. Low back pain. 3. 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 4. History of prostate cancer, recent increase in PSA. 5. Complex medical management under terms of written opioid agreement. We reviewed the fact that opiate medications are being used to provide analgesia adequate to support activities of daily living, not attempting to achieve a specific pain score on the 0-10 Visual Analog Scale. The current opiate medications are providing sufficient analgesia to allow the patient to participate in activities of daily living. The patient is not exhibiting any aberrant behavior suggestive of drug diversion. The patient is not having any adverse reactions to medications. The patient is not suffering from daytime somnolence or mental acuity changes. The patient is managing opiate-induced constipation with appropriate axng-yxu-ohebvrc agents and dietary considerations. The patient was counseled on concern for caution with operating a motor vehicle while using opiate medications. PLAN: 1. We will discuss treatment options with the patient today. He feels the medications are beneficial and has decided to continue on his opioid medication rather than seek a medical marijuana card due to expenses. He reports to me [facility] [address] [place] [address] PAIN MANAGEMENT CONSULTATION Name: KETTY LOZADA Room #: REG [facility] Yulisa#: [id number] Admission: 03/09/19 Attend Phys: Dorcas Abdullahi Discharge: Date of : 40 Report #: [id number] that he has not had any marijuana in 3 weeks. I explained to him that we will test him again for random drug screens and he will need to show negative for all marijuana drugs in his system or we will no longer write for him. He verbalizes understanding. He cannot risk of not having any medicine, so he has totally stopped any marijuana use. 2. Scripts given today for hydrocodone 10/325, #75 as well as Xanax 0.5 mg t.i.d. These were written by Dr. Gunnar Ryder who collaborated care today. The patient will follow up with us in 1 month and have a report from his PSA and possible MRI with him at that time for our records. <ELECTRONICALLY SIGNED> By: Dorcas Abdullahi 03/12/19 1607 0903 1020 Dorcas Abdullahi /nt
== END ==
LOC: PAIN 06:44
DX: M54.5 Low back pain (principal); M54.16 Radiculopathy, lumbar region; M79.671 Pain in right foot; M19.011 Primary osteoarthritis, right shoulder; Z79.891 Long term (current) use of opiate analgesic; Z88.8 Allergy status to other drugs, medicaments and biological substances

== ENCOUNTER → 2019-04-06 | Outpatient (CLI) | payer MEDICARE, OTHER ==
[~2019-04-06] VITALS: Ht 185.4 cm; Wt 74.1 kg
[2019-04-06 07:54] VITALS: BP 140/79
--- NOTE | 2019-04-06 08:00 | NUR ---
Pain Clinic Assessment: 1. History of Osteoarthritis: B/L HANDS B/L SHOULDERS LOW BACK History of Rheumatoid Arthritis: Not Applicable 2. Height: 6 ft. 1 in. 185.4 cm. Weight: 163.4 lb. oz. 74.118 kg. Patient's BMI: 21.6 3. Vital Signs: BP: 140/79 Pulse: 84 Resp: 16 Temp: 02 Sat: 97 ECG Mon: 4. Pain Intensity: 3 5. Fall Risk: Dizziness: N Needs help standing or walking: N Fallen in the last 3 months: N Fall risk comments: 6. Patient on Blood Thinner: None 7. History of Hypertension: N 8. Opioid Therapy greater than 6 weeks: Y Opiate Contract Signed: 02/04/17 9. Risk Assessment Tool Provided: LOW RISK 0 10. Functional Assessment Tool: 11. Recreational Drug Use: Past greater than 3 mos Drug Type: Tobacco Use: Current Every Day Smoker Tobacco Type: Cigarettes Amount or Packs/day: 1/4 PACK DAY How Many Years: Alcohol Use: No Frequency: Quant:
--- NOTE | 2019-04-06 10:47 | HPC ---
[facility] [address] [place] [address] PAIN MANAGEMENT CONSULTATION Name: KETTY LOZADA Room #: REG KIKECorey Salazar.#: [id number] Admission: 04/06/19 Attend Phys: Dorcas Abdullahi Discharge: Date of : 40 Report #: [id number] THIS REPORT FOR: cc: Agapito Murphy MD, Kirk D. MD Hocker,Dorcas SÁNCHEZ ~ DATE OF SERVICE: 04/06/2019 CHIEF COMPLAINT: Low back pain, right foot pain. HISTORY OF PRESENT ILLNESS: This is a pleasant 78-year-old gentleman who returns to the pain clinic today for refill of his medications that he uses to help treat his ongoing right leg pain and lower back pain. He states his pain is 3/10 today. He feels like he is having a good day. He does have pain that he describes as an aching, throbbing, constant tingly pain. He reports it is worse with walking and standing, but feels that the medication as well as elevating his legs and sitting is very beneficial. The patient reports that he does exercise as much as possible and keeps active, especially now that the weather is slightly improved outside. The patient reports he has seen an urologist at [facility], Dr. Darlene Ayala regarding his elevated PSA. He will follow up in 2 weeks to review new lab and see if his PSA is still elevated and they will decide what his plan of action is. He has a history of prostate cancer in the past with partial removal of his prostate. ALLERGIES: FLOMAX. CURRENT LIST OF MEDICATIONS: Hydrocodone 10/325, alprazolam 0.5 mg, gabapentin, buspirone, Glucotrol, Trulicity, ProAir and Prilosec. PQRS: 1. He has osteoarthritis in his bilateral hands, shoulders and lumbar spine. Denies any rheumatoid arthritis. 2. Height is 6 feet 1 inch. 3. Weight is 163, BMI is 21. 4. Vital Signs: 140/79, pulse is 84, respirations 16, oxygen sat is 97. 5. Pain score is 3/10. 6. Denies dizziness, does not need help walking or standing, has not fallen in the last 3 months. 7. The patient's pain score is 3/10. 8. Denies dizziness, does not need help walking or standing, has not fallen in the last 3 months. He is on no blood thinners and does not take any medicine for hypertension. 9. Opioid therapy is greater than 6 weeks; therefore, an opioid signed contract [address] [address] PAIN MANAGEMENT CONSULTATION Name: KETTY LOZADA [facility] [id number] Admission: 04/06/19 Attend Phys: Dorcas Abdullahi Discharge: Date of : 40 Report #: [id number] is on the chart. Risk assessment tool is low. Functional assessment is 48/70. 10. Recreational drug use in the past. He is a current smoker, fourth a pack of cigarettes a day and denies any alcohol use. According to the prescription monitoring system, the patient is due to fill his medications today. His current morphine mEq according to the CDC guidelines is 25 morphine mEq. There is a recent drug screen on the chart as well. PHYSICAL EXAMINATION: GENERAL: This is a well-developed, well-nourished 78-year-old gentleman who appears his stated age, placing his current pain score at 3/10 today. HEENT: Normocephalic, atraumatic. Extraocular eye muscles are intact. NECK: Without adenopathy or JVD. EXTREMITIES: He is without significant scoliosis, kyphosis or lordosis. He has discomfort in his lumbar spine that radiates following the L5-S1 dermatomal distribution greater on the right than the left. Lower extremity strength judged to be 5/5 in all major muscle groups. He has good sensation. IMPRESSION: 1. History of lumbar radiculopathy following the L5-S1 dermatomal distribution. 2. Low back pain. 3. Right shoulder pain with osteoarthritis. 4. History of prostate cancer, increased PSA recently. 5. Complex medical management under terms of written opioid agreement. PLAN: 1. We discussed treatment options with the patient today. The patient states he is feeling quite well today. Denies any problems of overmedication or constipation issues from his opioid medications. He is able to participate in activities of ADL by himself. We will renew his hydrocodone 10/325, #75 tablets for 1 month as well as his alprazolam 0.5 mg, #90. The patient reminded of the opioid, benzodiazepine interactions and the patient does not take these medications at the same time. 2. The patient will follow up in 1 month. The patient is seen today in collaboration with Dr. Gunnar Ryder. <ELECTRONICALLY SIGNED> By: Dorcas Abdullahi 04/06/19 1047 [id number] Dorcas Abdullahi /nt
== END ==
LOC: PAIN 06:45
DX: M54.5 Low back pain (principal); M79.671 Pain in right foot; M19.011 Primary osteoarthritis, right shoulder; Z79.899 Other long term (current) drug therapy; Z79.891 Long term (current) use of opiate analgesic

== ENCOUNTER → 2019-05-04 | Outpatient (CLI) | payer MEDICARE, OTHER ==
[~2019-05-04] VITALS: Ht 185.4 cm; Wt 75.5 kg
[~2019-05-04] MED LIST changes: +OZEMPIC0.25 MG/0. SUBQ
[2019-05-04 08:21] VITALS: BP 141/82
--- NOTE | 2019-05-04 08:24 | NUR ---
Pain Clinic Assessment: 1. History of Osteoarthritis: B/L HANDS B/L SHOULDERS LOW BACK History of Rheumatoid Arthritis: Not Applicable 2. Height: 6 ft. 1 in. 185.4 cm. Weight: 166.4 lb. oz. 75.479 kg. Patient's BMI: 22.0 3. Vital Signs: BP: 141/82 Pulse: 84 Resp: 16 Temp: 02 Sat: 97 ECG Mon: 4. Pain Intensity: 7 5. Fall Risk: Dizziness: N Needs help standing or walking: N Fallen in the last 3 months: N Fall risk comments: 6. Patient on Blood Thinner: None 7. History of Hypertension: N 8. Opioid Therapy greater than 6 weeks: Y Opiate Contract Signed: 02/04/17 9. Risk Assessment Tool Provided: LOW RISK 0 10. Functional Assessment Tool: 11. Recreational Drug Use: Past greater than 3 mos Drug Type: Tobacco Use: Current Every Day Smoker Tobacco Type: Cigarettes Amount or Packs/day: How Many Years: Alcohol Use: No Frequency: Quant:
--- NOTE | 2019-05-23 15:15 | HPC ---
[facility] [address] [place] [address] PAIN MANAGEMENT CONSULTATION Name: KETTY LOZADA Room #: REG RONDA Salazar.#: [id number] Admission: 05/04/19 Attend Phys: Pari Ryder MD Discharge: Date of : 40 Report #: [id number] THIS REPORT FOR: cc: Agapito Murphy MD, Kirk D. MD Brown,Pari Chen MD ~ CC: Agapito Ryder DATE OF SERVICE: 05/04/2019 CHIEF COMPLAINT: Pain in the right leg, right foot, right shoulder and low back area. HISTORY: The patient is a 78-year-old gentleman who has been followed in the Pain Clinic. He continues to note movement in his pain control with his current medical regimen. He has returned today for renewal of his medication. He rates his pain as a 7/10 today. He notes some sharp, throbbing and aching discomfort down in the posterior portion of his leg. He notes that the pain improves when he sits for a while. It also improves when he elevates his leg. Pain is exacerbated by standing and walking. The patient is scheduled to see a physician in regards to his prostate. He has noted some elevation in the prostate score. He will follow up on this. He does continue to show some signs of frozen shoulder. He continues to monitor his blood sugars. ALLERGIES: FLOMAX. CURRENT MEDICATIONS: Hydrocodone 10 mg one p.o. as directed. Glucotrol 5 mg b.i.d., Trulicity 0.7 mg, albuterol inhaler, Flonase 0.05% nasal spray, Crestor 40 mg, Prilosec 20 mg, potassium 20 mEq, Viagra p.r.n., buspirone 10 mg b.i.d., gabapentin 400 mg b.i.d., and Xanax 0.5 mg t.i.d. PAIN CLINIC ASSESSMENT AND PQRS: 1. The patient is not being treated for rheumatoid arthritis. The patient does have some arthritic changes in his low back area. He does have some signs of frozen shoulder on the left side. 2. Height 6 feet 1 inch, weight 166 pounds, BMI is 22. 3. Vital signs: Blood pressure 141/82, pulse 84, respiratory rate 16, and room air saturation 97%. 4. Pain intensity 08/16. 5. Fall risk. The patient has not fallen in the last 3 months. 6. Blood thinner. The patient is not on a blood thinning medication. 7. Hypertension. The patient is not being treated for hypertension. 8. Opioids greater than 6 weeks. The patient receives medication [place] [address] PAIN MANAGEMENT CONSULTATION Name: KETTY LOZADA Room #: REG RONDA Márquez#: [id number] Admission: 05/04/19 Attend Phys: Pari Ryder MD Discharge: Date of : 40 Report #: [id number] Clinic. 9. Risk assessment tool, low for opioid use. 10. Functional assessment tool 48 of 70. 11. Recreational drug use: The patient denies. 12. Tobacco: The patient smokes 1 pack of cigarettes per month. 13. Alcohol. The patient denies frequent use of alcoholic beverages. PHYSICAL EXAMINATION: GENERAL: The patient is a well-developed, well-nourished black male, appears his stated age. He is alert and oriented x 3. His affect is appropriate. Speech is fluent. The patient has his Rithmio dog with him for support. HEENT: Normocephalic, atraumatic. Extraocular eye muscles intact. Sclerae nonicteric. Mucous membranes are moist. NECK: Without adenopathy or JVD. HEART: Regular rate. ABDOMEN: Nontender. EXTREMITIES: Upper extremity muscle strength judged to be 5/5 on the right side. The patient has decreased range of motion secondary to frozen shoulder limitation on the left. Has some discomfort in lower portion of his back down the L5-S1 dermatomal distribution as well as the L4-L5 area. IMPRESSION: 1. Decreased range of motion left arm with clinical findings consistent with frozen shoulder. 2. Diabetes. 3. Asthma. 4. History of ulcers, Crohn's disease. 5. Prostate cancer, elevated scores at the last visit with his doctor. 6. Hernia repair. 7. Gastroesophageal surgery in 1990. RECOMMENDATIONS: We discussed treatment options with the patient. We will continue with his medications. A script for his medications have been provided. The patient will continue with alprazolam 0.5 mg to help with anxiety. He will also continue with hydrocodone 10 mg one p.o. every 6 hours p.r.n., total of 75 tablets have been provided for the next month. The patient will follow up with his physician regarding the elevated prostate numbers. He has had prostate cancer in the past. A script for his medications has been written. The patient is aware that opioid medications over time can become less effective because of development of tolerance. He appears to be taken the medication as prescribed. [address] [address] PAIN MANAGEMENT CONSULTATION Name: KETTY LOZADA Room #: DONALD Salazar.#: [id number] Admission: 05/04/19 Attend Phys: Pari Ryder MD Discharge: Date of : 40 Report #: [id number] We would like to thank you for letting us participate in his care. We hope he continues to improve. <ELECTRONICALLY SIGNED> By: Pari Ryder MD 05/23/19 1515 0839 0908 Pari Ryder MD /nt
== END ==
LOC: PAIN 06:43
DX: M79.604 Pain in right leg (principal); M79.671 Pain in right foot; M54.5 Low back pain; E11.9 Type 2 diabetes mellitus without complications; J45.909 Unspecified asthma, uncomplicated; K50.90 Crohn's disease, unspecified, without complications; C61 Malignant neoplasm of prostate; R29.898 Other symptoms and signs involving the musculoskeletal system; F17.210 Nicotine dependence, cigarettes, uncomplicated; F11.20 Opioid dependence, uncomplicated; Z98.890 Other specified postprocedural states; Z88.8 Allergy status to other drugs, medicaments and biological substances; Z79.899 Other long term (current) drug therapy

== ENCOUNTER → 2019-05-30 | Outpatient (CLI) | payer MEDICARE, OTHER ==
[~2019-05-30] VITALS: Ht 185.4 cm; Wt 75.6 kg
[2019-05-30 08:12] VITALS: BP 148/85
--- NOTE | 2019-05-30 08:27 | NUR ---
Pain Clinic Assessment: 1. History of Osteoarthritis: B/L HANDS B/L SHOULDERS LOW BACK History of Rheumatoid Arthritis: Not Applicable 2. Height: 6 ft. 1 in. 185.4 cm. Weight: 166.6 lb. oz. 75.569 kg. Patient's BMI: 22.0 3. Vital Signs: BP: 148/85 Pulse: 79 Resp: 14 Temp: 02 Sat: 100 ECG Mon: 4. Pain Intensity: 3-4 5. Fall Risk: Dizziness: N Needs help standing or walking: N Fallen in the last 3 months: N Fall risk comments: 6. Patient on Blood Thinner: None 7. History of Hypertension: N 8. Opioid Therapy greater than 6 weeks: Y Opiate Contract Signed: 02/04/17 9. Risk Assessment Tool Provided: LOW RISK 0 10. Functional Assessment Tool: 11. Recreational Drug Use: Past greater than 3 mos Drug Type: Tobacco Use: Current Every Day Smoker Tobacco Type: Cigarettes Amount or Packs/day: 1 PK/MONTH How Many Years: Alcohol Use: No Frequency: Quant:
--- NOTE | 2019-06-06 08:03 | HPC ---
[facility] [place] [address] PAIN MANAGEMENT CONSULTATION Name: KETTY LOZADA Room #: REG RONDA AllenMarcValerie.#: [id number] Admission: 05/30/19 Attend Phys: Pari Ryder MD Discharge: Date of : 40 Report #: [id number] THIS REPORT FOR: cc: Agapito Murphy MD, Kirk D. MD Brown,Pari Chen MD ~ CC: Agapito Ryder DATE OF SERVICE: 05/30/2019 CHIEF COMPLAINT: Pain in the hands, shoulders, low back. HISTORY: The patient is a 78-year-old gentleman who has been followed in the pain clinic. As you recall, he continues to have pain and discomfort in the low back area. It involves the posterior portion of his left leg. He has undergone epidural steroid injections. They became less effective. He has found that use of opioids continue to be helpful, he is able to engage in activities of daily living, he would not be able to without their use. He has been followed by his doctor because of prostate cancer. He is scheduled to go to research to follow up on his treatment course. It appears that his levels may have increased. Possibility of hormonal treatments might be an option. Notes that his pain is exacerbated with prolonged standing or walking. Pain improves with use of medication as well as when he sits down and elevates his leg. Does still have some problems with his shoulder, right side still difficult to raise above the horizon. ALLERGIES: FLOMAX. CURRENT MEDICATIONS: Hydrocodone 10/325 one p.o. t.i.d. as directed, Glucotrol 5 mg b.i.d., Trulicity 0.7 mg, albuterol inhaler, Flonase 0.05% nasal spray, Crestor 40 mg, Prilosec 20 mg, potassium 20 mEq, and Viagra p.r.n., buspirone 10 mg b.i.d., gabapentin 400 mg b.i.d., and Xanax 0.5 mg t.i.d. PAIN CLINIC ASSESSMENT AND PQRS: 1. The patient is not being treated for rheumatoid arthritis. He does have some arthritic changes in his low back area. Also, has some and discomfort in his left side because of frozen shoulder. 2. Height 6 feet 1 inch, weight 166 pounds, BMI is 22.0. 3. Vital signs: Blood pressure 148/85, pulse 79, respiratory rate 14, room air saturation is 100%. 4. Pain intensity is 3-4/10. 5. Fall history: The patient has not fallen in the last 3 months. 6. Blood thinner. The patient is not on a blood thinning medication. 7. History of hypertension. The patient is not being treated for hypertension. 8. Opioids greater than 6 weeks. The patient [place] [address] PAIN MANAGEMENT CONSULTATION Name: KETTY LOZADA [facility] [id number] Admission: 05/30/19 Attend Phys: Pari Ryder MD Discharge: Date of : 40 Report #: [id number] pain clinic. 9. Risk assessment tool, low for opioid use. 10. Functional assessment tool . 11. Recreational drug use: The patient denies recreational drugs. 12. Tobacco: The patient smokes 1 pack of cigarettes per month. 13. Alcohol. The patient denies frequent use of alcoholic beverages. PHYSICAL EXAMINATION: GENERAL: The patient is a well-developed, well-nourished black male, appears his stated age. He is alert and oriented x 3. His affect is appropriate. Speech is fluent. The patient's Yanira dog is out in the car. Because of the Covid-19 problems, we would recommend that the patient do not bring his pet into the Pain Clinic. He has a friend sitting outside waiting with the dog. HEENT: Normocephalic, atraumatic. Extraocular eye muscles intact. Sclerae nonicteric. Mucous membranes are moist. NECK: Without adenopathy or JVD. HEART: Regular rate. ABDOMEN: Nontender. EXTREMITIES: Upper extremity muscle strength judged to be 5-/5 for the major muscle groups on the left. The patient has some decreased ability maneuver and move his left shoulder, which is showing signs of frozen attributes. He has pain in the low back area in the L5-S1 dermatomal distribution. Has some discomfort in the L4-L5 area. IMPRESSION: 1. Decreased range of motion in left arm with clinical findings consistent with frozen shoulder. 2. Diabetes. 3. Asthma. 4. History of ulcers, Crohn's disease. 5. Prostate cancer. The patient has an elevated score and is following up with his doctor at [facility]. 6. Hernia repair. 7. Gastroesophageal surgery in 1990. RECOMMENDATIONS: We discussed treatment options with the patient. At this juncture, we will continue with his medications. A script for his medications has been provided. The patient is trying to stay at home because of the Covid-19 pandemic. He overall feels that his medications continue to be helpful. He is not having any complications with their use. A script for hydrocodone 10 mg 1 p.o. b.i.d. has been provided to the patient. He will also continue with alprazolam 0.5 mg. He takes his medication for anxiety. He will follow up with his physician at [facility]. We would like to thank you for letting us participate in his care. Hopefully, [facility] [address] [place] [address] PAIN MANAGEMENT CONSULTATION Name: KETTY LOZADA Room #: [facility] [id number] Admission: 05/30/19 Attend Phys: Pari Ryder MD Discharge: Date of : 40 Report #: [id number] things will continue to improve and his prostate cancer therapy/treatment will be minimal. <ELECTRONICALLY SIGNED> By: Pari Ryder MD 06/06/19 0803 [id number] Pari Ryder MD /nt
== END ==
LOC: PAIN 06:41
DX: M79.642 Pain in left hand (principal); M79.641 Pain in right hand; M25.561 Pain in right knee; M25.562 Pain in left knee; M54.5 Low back pain; E11.9 Type 2 diabetes mellitus without complications; J45.909 Unspecified asthma, uncomplicated; C61 Malignant neoplasm of prostate; K50.90 Crohn's disease, unspecified, without complications; K21.0 Gastro-esophageal reflux disease with esophagitis; F17.200 Nicotine dependence, unspecified, uncomplicated; Z79.899 Other long term (current) drug therapy

== ENCOUNTER → 2019-06-27 | Outpatient (CLI) | payer MEDICARE, OTHER ==
[~2019-06-27] VITALS: Ht 185.4 cm; Wt 72.6 kg
[2019-06-27 08:03] VITALS: BP 141/75
--- NOTE | 2019-06-27 08:09 | NUR ---
Pain Clinic Assessment: 1. 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 Height: 6 ft. 1 in. 185.4 cm. Weight: 160.0 lb. oz. 72.576 kg. Patient's BMI: 21.1 3. Vital Signs: BP: 141/75 Pulse: 69 Resp: 14 Temp: 02 Sat: 99 ECG Mon: 4. Pain Intensity: 6 5. Fall Risk: Dizziness: N Needs help standing or walking: N Fallen in the last 3 months: N Fall risk comments: 6. Patient on Blood Thinner: None 7. History of Hypertension: N 8. Opioid Therapy greater than 6 weeks: Y Opiate Contract Signed: 02/04/17 9. Risk Assessment Tool Provided: LOW RISK 0 10. Functional Assessment Tool: 11. Recreational Drug Use: Past greater than 3 mos Drug Type: Tobacco Use: Current Every Day Smoker Tobacco Type: Cigarettes Amount or Packs/day: How Many Years: Alcohol Use: No Frequency: Quant:
--- NOTE | 2019-07-09 09:03 | HPC ---
[facility] [place] [address] [place] [address] PAIN MANAGEMENT CONSULTATION Name: KETTY LOZADA Room #: REG RONDA Salazar.#: [id number] Admission: 06/27/19 Attend Phys: Pari Ryder MD Discharge: Date of : 40 Report #: [id number] THIS REPORT FOR: cc: Agapito Murphy MD, Kirk D. MD Brown,Pari Chen MD ~ CC: Agapito Ryder DATE OF SERVICE: 06/27/2019 CHIEF COMPLAINT: Medication is still helpful and would like to have it renewed. HISTORY: The patient is a 78-year-old gentleman who has been followed in the pain clinic. He has continued pain in his low back area. He has undergone epidural steroid injections in the past. He still has pain that radiates down into his lower leg. He feels that his current medications continue to be helpful. It helps with the pain in the right leg, right foot. He also has some pain in his right shoulder. He has signs of decreased range of motion in the right shoulder. He rates his pain today as a 6/10. Standing and walking can be problematic. Notes that with his medications the pains are improved. Sitting, elevating his leg and lying down are helpful as well. He has returned today with the hopes of renewing his medications. ALLERGIES: FLOMAX. CURRENT MEDICATIONS: Hydrocodone 10/325 one p.o. t.i.d., Glucotrol 5 mg b.i.d., Trulicity 0.7 mg, albuterol inhaler, Flonase 0.05% nasal spray, Crestor 40 mg, Prilosec 20 mg, potassium 20 mEq, and Viagra p.r.n., buspirone 10 mg b.i.d., gabapentin 400 mg b.i.d., Xanax 0.5 mg t.i.d. PAIN CLINIC ASSESSMENT AND PQRS: 1. The patient is not being treated for rheumatoid arthritis. He does have some arthritic changes in his low back area. He also has some discomfort in his left side because of frozen shoulder. 2. Height 6 feet 1 inch, weight 160 pounds, BMI is 21.1. 3. Vital Signs: Blood pressure 141/75, pulse 69, respiratory rate 14, room air saturation 99%. 4. Pain intensity 07/17. 5. Fall risk. The patient has not fallen. 6. Blood thinner. The patient is not on a blood thinning medication. 7. Hypertension. The patient is not being treated for hypertension. 8. Opioids greater than 6 weeks. The patient received medication from one source our pain clinic. 9. Risk assessment tool, low for opioid use. 10. Functional assessment tool 48/70. [place] [address] PAIN MANAGEMENT CONSULTATION Name: KETTY LOZADA [facility] [id number] Admission: 06/27/19 Attend Phys: Pari Ryder MD Discharge: Date of : 40 Report #: [id number] 11. Recreational drug use. The patient denies. 12. Tobacco: The patient does smoke, smokes 1 pack of cigarettes per month. 13. Alcohol. Denies use of alcoholic beverages. PHYSICAL EXAMINATION: GENERAL: The patient is a well-developed, well-nourished black male, appears his stated age. He is alert and oriented x 3. His affect is appropriate. Speech is fluent. HEENT: Normocephalic, atraumatic. Extraocular eye muscles intact. Sclerae nonicteric. Mucous membranes are moist. NECK: Without adenopathy or JVD. HEART: Regular rate. ABDOMEN: Nontender. EXTREMITIES: Upper extremity muscle strength judged to be 5-/5 in the major muscle groups with some decreased ability to lift his left shoulder. He has decreased range of motion. Has low back pain in the L5-S1 dermatomal distribution. Has some discomfort in the L4-L5 dermatomal distribution. IMPRESSION: 1. Decreased range of motion in the left arm with clinical findings consistent with frozen shoulder. 2. Diabetes. 3. Asthma. 4. History of ulcers/Crohn's disease. 5. Prostate cancer. The patient has an elevated PSA score and is being followed by his doctor. 6. Hiatal hernia. 7. Gastroesophageal surgery in 1990. RECOMMENDATIONS: We discussed the treatment plan with the patient. We will continue with his opioid medications. He is trying to stay at home. He is aware that COVID-19 pandemic is problematic. He uses medications as directed. Received support from his (Yanira mejía). He will call us if he has any concerns. We would like to thank you for letting us participate in his care. A script for hydrocodone 10 mg 1 p.o. b.i.d. has been written. The patient will also continue with alprazolam 0.5 mg to help with his anxiety. He will continue to follow up with his physician at [facility] regarding his prostate. <ELECTRONICALLY SIGNED> By: Pari Ryder MD 07/09/19 [id number] Pari Ryder MD /PMT
== END ==
LOC: PAIN 06:56
DX: M54.5 Low back pain (principal); I10 Essential (primary) hypertension; M06.80 Other specified rheumatoid arthritis, unspecified site; F11.90 Opioid use, unspecified, uncomplicated; Z88.8 Allergy status to other drugs, medicaments and biological substances

== ENCOUNTER → 2019-07-25 | Outpatient (CLI) | payer MEDICARE, OTHER ==
[~2019-07-25] VITALS: Ht 185.4 cm; Wt 72.1 kg
[2019-07-25 08:07] VITALS: BP 141/80
--- NOTE | 2019-07-25 08:11 | NUR ---
Pain Clinic Assessment: 1. 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 Height: 6 ft. 1 in. 185.4 cm. Weight: 159.0 lb. oz. 72.122 kg. Patient's BMI: 21.0 3. Vital Signs: BP: 141/80 Pulse: 73 Resp: 16 Temp: 02 Sat: 98 ECG Mon: 4. Pain Intensity: 7 5. Fall Risk: Dizziness: N Needs help standing or walking: N Fallen in the last 3 months: N Fall risk comments: 6. Patient on Blood Thinner: None 7. History of Hypertension: N 8. Opioid Therapy greater than 6 weeks: Y Opiate Contract Signed: 02/04/17 9. Risk Assessment Tool Provided: LOW RISK 0 10. Functional Assessment Tool: 11. Recreational Drug Use: Past greater than 3 mos Drug Type: Tobacco Use: Current Every Day Smoker Tobacco Type: Cigarettes Amount or Packs/day: 1 PACK/MO How Many Years: 30 Alcohol Use: No Frequency: Quant:
--- NOTE | 2019-07-25 12:25 | HPC ---
[facility] [address] [place] [address] PAIN MANAGEMENT CONSULTATION Name: KETTY LOZADA Room #: REG KIKECorey Salazar.#: [id number] Admission: 07/25/19 Attend Phys: Dorcas Abdullahi Discharge: Date of : 40 Report #: [id number] THIS REPORT FOR: cc: Agapito Murphy MD, Kirk D. MD Hocker, Amanda CNS ~ CC: Marci Ryder MD DATE OF SERVICE: 07/25/2019 CHIEF COMPLAINT: Low back pain and right leg pain and paresthesias. HISTORY OF PRESENT ILLNESS: This is a 78-year-old gentleman who returns to the pain clinic today for refill of his opioid medications. He continues to have ongoing low back pain that does radiate into his right thigh to his foot. He states that his pain score is 7/10 today. He feels that his pain is increased when he is sitting up straight. It feels like a pulling in his leg as well as standing and walking. He feels that his medication as well as lying down are beneficial. He has been having issues with constipation and had been taking ugri-rpb-tkiphjh stool softener, but per his report he has started a new medication though he is unsure of the name that he takes in the morning that is beneficial in helping him have a bowel movement within 5 hours. The patient does report he continues to have followup visits with his urologist for his prostate issues. He reports his PSA levels are going down. He has an appointment on 08/04 for another followup. ALLERGIES: FLOMAX. CURRENT LIST OF MEDICATIONS: Trulicity, hydrocodone 10/325 p.r.n., Xanax 0.5 t.i.d., gabapentin 400 mg b.i.d., buspirone, Glucotrol, ProAir and Prilosec. PQRS: 1. He is not being treated for rheumatoid arthritis and he has osteoarthritis in his hands, shoulders and back. 2. Height is 6 feet 1 inch. Weight is 159. BMI is 21. 3. Vital signs: 141/80, pulse is 73, respirations of 16, oxygen sat is 98. 4. Pain score 7/10. 5. Denies dizziness, does not need help walking or standing, has not fallen in the last 3 months. 6. The patient is not on any blood thinners or medicine for hypertension. 7. Opioid therapy is greater than 6 weeks, therefore an opioid signed contract is on the chart. Risk assessment is low. Functional assessment is 48/70. 8. Recreational drug use in the past. He is a current smoker and does not drink alcohol. [address] [address] PAIN MANAGEMENT CONSULTATION Name: KETTY LOZADA Room #: REG CLCorey Márquez#: [id number] Admission: 07/25/19 Attend Phys: Dorcas Abdullahi Discharge: Date of : 40 Report #: [id number] According to the prescription monitoring system, the patient is due to fill his medications today, filling them in a timely fashion from Dr. Ryder. His morphine mEq is 25 MME per day. PHYSICAL EXAMINATION: GENERAL: This is a well-developed, well-nourished black gentleman who appears his stated age, placing his current pain score at 7/10. He is alert and orientated. His speech is fluent. His affect is appropriate. HEENT: Normocephalic, atraumatic. Extraocular eye muscles are intact. Sclerae are nonintrinsic. He is wearing a mask. NECK: Without adenopathy or JVD. EXTREMITIES: He has pain in his low back at the L5-S1 dermatomal distribution that does radiate down his right leg with some discomfort following the L4-L5 dermatomal distribution as well. His upper and lower extremity strength is 5/5, though he does have decreased range of motion in his left shoulder. IMPRESSION: 1. Possible left frozen shoulder. 2. Diabetes. 3. Asthma. 4. History of prostate cancer with increased PSA. 5. Chronic low back pain. 6. History of lumbar radiculopathy. 7. Complex medical management under terms of written opioid agreement. We reviewed the fact that opiate medications are being used to provide analgesia adequate to support activities of daily living, not attempting to achieve a specific pain score on the 0-10 Visual Analog Scale. The current opiate medications are providing sufficient analgesia to allow the patient to participate in activities of daily living. The patient is not exhibiting any aberrant behavior suggestive of drug diversion. The patient is not having any adverse reactions to medications. The patient is not suffering from daytime somnolence or mental acuity changes. The patient is managing opiate-induced constipation with appropriate bexd-obc-pleqmub agents and dietary considerations. The patient was counseled on concern for caution with operating a motor vehicle while using opiate medications. PLAN: 1. We discussed treatment options with the patient today. The patient continues to feel that the medications are beneficial in controlling his pain. We will refill his hydrocodone 10/325, #75. This does last him one month as well as Xanax 0.5 t.i.d., #90. These will be sent electronically by Dr. Ryder. Again, we cautioned the patient regarding the benzodiazepine and opioid interactions. 2. He continues to follow up with his urologist for his elevated PSA. 3. The patient encouraged to bring the name of the medication he is taking for [facility] [address] [place] [address] PAIN MANAGEMENT CONSULTATION Name: KETTY LOZADA Room #: DONALD Márquez#: [id number] Admission: 07/25/19 Attend Phys: Dorcas Abdullahi Discharge: Date of : 40 Report #: [id number] his constipation, which he believes has been beneficial since he had started this medicine from his primary. 4. The patient is seen in collaboration with Dr. Ryder. The patient will follow up in 1 month. <ELECTRONICALLY SIGNED> By: Dorcas Abdullahi 07/25/19 1225 0827 0845 Dorcas Abdullahi /don
== END ==
LOC: PAIN 06:47
PROVIDERS: ATTEND Clinical Nurse Specialist Adult Health
DX: M54.5 Low back pain (principal); M79.604 Pain in right leg; R20.2 Paresthesia of skin; E11.9 Type 2 diabetes mellitus without complications; J45.909 Unspecified asthma, uncomplicated; M87.39 Other secondary osteonecrosis, multiple sites; F11.20 Opioid dependence, uncomplicated; Z79.899 Other long term (current) drug therapy; Z88.8 Allergy status to other drugs, medicaments and biological substances

== ENCOUNTER → 2019-08-22 | Outpatient (CLI) | payer MEDICARE, OTHER ==
[~2019-08-22] VITALS: Ht 185.4 cm; Wt 71.1 kg
[~2019-08-22] MED LIST changes: +LIPITOR10 MG PO; +OZEMPIC1 MG/0.75 SUBQ
[2019-08-22 08:08] VITALS: BP 132/80
--- NOTE | 2019-08-22 08:09 | NUR ---
Pain Clinic Assessment: 1. 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 Height: 6 ft. 1 in. 185.4 cm. Weight: 156.8 lb. oz. 71.124 kg. Patient's BMI: 20.7 3. Vital Signs: BP: 132/80 Pulse: 71 Resp: 18 Temp: 02 Sat: 100 ECG Mon: 4. Pain Intensity: 4 5. Fall Risk: Dizziness: N Needs help standing or walking: N Fallen in the last 3 months: N Fall risk comments: 6. Patient on Blood Thinner: None 7. History of Hypertension: N 8. Opioid Therapy greater than 6 weeks: Y Opiate Contract Signed: 02/04/17 9. Risk Assessment Tool Provided: LOW RISK 0 10. Functional Assessment Tool: 11. Recreational Drug Use: Current within past 3 mos Drug Type: MARIJUANA - OCCASIONAL Tobacco Use: Current Every Day Smoker Tobacco Type: Cigarettes Amount or Packs/day: 1/MONTH How Many Years: 10 Alcohol Use: No Frequency: Quant:
--- NOTE | 2019-08-22 15:23 | HPC ---
[facility] [address] [address] PAIN MANAGEMENT CONSULTATION Name: KETTY LOZADA Room #: REG RONDA M.Valerie.#: [id number] Admission: 08/22/19 Attend Phys: Dorcas Abdullahi Discharge: Date of : 40 Report #: [id number] THIS REPORT FOR: cc: Agapito Murphy MD, Kirk D. MD Hocker, Amanda CNS ~ CC: Marci Ryder MD DATE OF SERVICE: 08/22/2019 CHIEF COMPLAINT: Low back pain, right lower extremity pain and paresthesias. HISTORY OF PRESENT ILLNESS: This is a 78-year-old gentleman who returns to the pain clinic today for refill of his medications. He is reporting a pain score of 4/10 today, slightly lower than he has been. He feels like he has been doing quite well. Unfortunately, he has not been as active as he would like due to the COVID virus. He does try to walk a couple miles a day, but he is mostly staying home. He states that he has been having problems in his right foot lately. Otherwise, his pain is normally in his low back. It is a sharp, aching pain, worse with prolonged standing and walking. He feels like if he lies down and elevates his leg and takes his medicine, it is beneficial. He denies any problems with constipation today. He has been taking ycta-kqw-fptloxp stool softeners. ALLERGIES: FLOMAX. CURRENT LIST OF MEDICATIONS: Hydrocodone 10/325 b.i.d. to t.i.d. p.r.n., Xanax 0.5 mg t.i.d. Trulicity, Neurontin, buspirone, Glucotrol, ProAir and Prilosec. PQRS: 1. He has a history of osteoarthritis in his hands, shoulders and back. Denies any rheumatoid arthritis. 2. Height is 6 feet 1 inch, weight is 156, BMI is 20. 3. Vital signs 132/80, pulse is 71, respirations 18, oxygen sat is 100. 4. Pain score is 4/10. 5. Denies dizziness, does not need help walking or standing, has not fallen in the last 3 months. 6. The patient is not on any blood thinners or medicine for hypertension. 7. Opioid therapy is greater than 6 weeks; therefore, an opioid signed contract is on the chart. Risk assessment tool is low. Functional assessment is 48/70. 8. Recreational drug use in the past. He is a current smoker of cigarettes and does not drink alcohol. According to the prescription monitoring system, the patient is filling appropriately. He is due to fill his medications this week. There is a recent drug screen on the chart. We will recheck that later this year. His morphine [address] [address] PAIN MANAGEMENT CONSULTATION Name: KETTY LOZADA Room #: REG RONDA Márquez#: [id number] Admission: 08/22/19 Attend Phys: Dorcas Abdullahi Discharge: Date of : 40 Report #: [id number] mEq is 25 MME per day according to the CDC guidelines. PHYSICAL EXAMINATION: GENERAL: This is a well-developed, well-nourished, well-hydrated 78-year-old gentleman who appears his stated age, placing his current pain score at 4/10 today. HEENT: Normocephalic, atraumatic. Extraocular eye muscles are intact. He is wearing a mask. MUSCULOSKELETAL: He has pain in his lumbar spine that radiates down his right leg to his foot following the L5-S1 dermatomal distribution. Complains of tightness feeling in his right foot with no edema noted. His upper and lower extremity strength judged to be 5/5 in all major muscle groups. IMPRESSION: 1. Chronic low back pain. 2. History of lumbar radiculopathy. 3. Complex medical management under terms of written opioid agreement. 4. History of prostate cancer. 5. Diabetes. We reviewed the fact that opiate medications are being used to provide analgesia adequate to support activities of daily living, not attempting to achieve a specific pain score on the 0-10 Visual Analog Scale. The current opiate medications are providing sufficient analgesia to allow the patient to participate in activities of daily living. The patient is not exhibiting any aberrant behavior suggestive of drug diversion. The patient is not having any adverse reactions to medications. The patient is not suffering from daytime somnolence or mental acuity changes. The patient is managing opiate-induced constipation with appropriate ilhz-xpx-gajseyg agents and dietary considerations. The patient was counseled on concern for caution with operating a motor vehicle while using opiate medications. A physical exam was performed and the patient's functional status was evaluated. All patients with back pain were advised against the bed rest greater than 4 days and were advised to return to normal activities. Pain score assessment was noted and the treatment plan was reviewed with the patient. All current medications, both prescribed and OTC were reviewed and reconciled on the electronic medical record. Tobacco screening was accomplished and smoking cessation was advised when indicated. BMI was noted and diet/exercise modification was recommended for all patients following outside normal parameters. I reviewed with the patient today their responsibilities to safeguard prescription medications, reviewed their responsibility to utilize medications only as prescribed by the physician. They are to seek and receive pain medications only from 1 physician group ( [facility]). They are to use 1 [facility] [address] [place] [address] PAIN MANAGEMENT CONSULTATION Name: KETTY LOZADA Room #: REG RONDA Márquez#: [id number] Admission: 08/22/19 Attend Phys: Dorcas Abdullahi Discharge: Date of : 40 Report #: [id number] pharmacy and keep the clinic informed if they change pharmacies. Their responsibilities include making followup visits in a timely fashion and to avoid abrupt discontinuation of medication usage. Their responsibilities further include bringing their medications (bottles from the pharmacy with residual pills) to the visit for possible confirmation of pill counts and the patient understands it is their responsibility to submit to random drug screens to ensure both that the medications prescribed are present, and that no other controlled substances are present. All prescriptions provided today were generated electronically. PLAN: 1. We discussed treatment options with the patient today. The patient finds his medications are beneficial in reducing his pain. Currently, he feels it very well controlled. We will refill his hydrocodone 10/325, #75 as well as his alprazolam 0.5 mg t.i.d., #90. These will be sent electronically by Dr. Gunnar Ryder who collaborated care. 2. The patient will return in 1 month for followup. 3. We did discuss medical marijuana. Again, at this time, the patient is still not going to follow up on that option due to cost and the dispensaries are not open due to COVID. <ELECTRONICALLY SIGNED> By: Dorcas Abdullahi 08/22/19 1523 0827 0923 Dorcas Abdullahi /nt
== END ==
LOC: PAIN 06:50
PROVIDERS: ATTEND Clinical Nurse Specialist Adult Health
DX: M54.5 Low back pain (principal); M79.604 Pain in right leg; M79.605 Pain in left leg; R20.2 Paresthesia of skin; F11.20 Opioid dependence, uncomplicated; E11.9 Type 2 diabetes mellitus without complications; Z87.39 Personal history of other diseases of the musculoskeletal system and connective tissue; Z85.46 Personal history of malignant neoplasm of prostate; Z79.899 Other long term (current) drug therapy; Z88.8 Allergy status to other drugs, medicaments and biological substances

== ENCOUNTER → 2019-09-19 | Outpatient (CLI) | payer MEDICARE, OTHER ==
[~2019-09-19] VITALS: Ht 185.4 cm; Wt 72.1 kg
[~2019-09-19] MED LIST changes: -LIPITOR10 MG PO; -OZEMPIC1 MG/0.75 SUBQ
[2019-09-19 08:06] VITALS: BP 145/76
--- NOTE | 2019-09-19 08:11 | NUR ---
Pain Clinic Assessment: 1. 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 Height: 6 ft. 1 in. 185.4 cm. Weight: 159.0 lb. oz. 72.122 kg. Patient's BMI: 21.0 3. Vital Signs: BP: 145/76 Pulse: 69 Resp: 16 Temp: 02 Sat: 100 ECG Mon: 4. Pain Intensity: 5 5. Fall Risk: Dizziness: N Needs help standing or walking: N Fallen in the last 3 months: N Fall risk comments: 6. Patient on Blood Thinner: None 7. History of Hypertension: N 8. Opioid Therapy greater than 6 weeks: Y Opiate Contract Signed: 02/04/17 9. Risk Assessment Tool Provided: LOW RISK 0 10. Functional Assessment Tool: 11. Recreational Drug Use: Never Drug Type: Tobacco Use: Current Every Day Smoker Tobacco Type: Cigarettes Amount or Packs/day: 1 PACK/MONTH How Many Years: 30 Alcohol Use: No Frequency: Quant:
--- NOTE | 2019-09-19 14:28 | HPC ---
[facility] [address] [address] PAIN MANAGEMENT CONSULTATION Name: KETTY LOZADA Room #: REG Corey M.R.#: [id number] Admission: 09/19/19 Attend Phys: Dorcas Abdullahi Discharge: Date of : 40 Report #: [id number] THIS REPORT FOR: cc: Agapito Murphy MD, Kirk D. MD Hocker, Amanda CNS ~ CC: Marci Ryder MD DATE OF SERVICE: 09/19/2019 CHIEF COMPLAINT: Low back pain, lower extremity pain and paresthesias. HISTORY OF PRESENT ILLNESS: This is a pleasant 78-year-old gentleman who returns to the pain clinic today for refill of his opioid medications that he uses to help treat his ongoing low back pain that does radiate down his right leg into his foot. At times, he reports it as an aching, sharp pain, worse with standing and walking, though he does walk for exercise on a daily basis. He feels the medication enables him to do that as well as he gets relief from sitting and elevating his leg. He does report that he has problems with constipation and has recently started a new medication that his urologist started him on, though when he does take this medicine, he goes several times a day and is unable to leave the house. He is wondering if he needs to take this medicine on a daily basis. He is unsure of the name. ALLERGIES: TAMSULOSIN. CURRENT LIST OF MEDICATIONS: Hydrocodone 10/325, alprazolam 0.5 mg t.i.d. Trulicity, Neurontin, buspirone, Glucotrol, ProAir and Prilosec. PQRS: 1. He has osteoarthritic changes in his hands, shoulders and lower back. He denies any rheumatoid arthritis. 2. Height is 6 feet 1 inch. Weight is 159, BMI is 21. 3. Vital signs 145/76, pulse is 69, respirations 16, oxygen sat is 100. 4. Pain score is 5/10. 5. Denies dizziness, does not need help walking or standing, has not fallen in the last 3 months. 6. The patient is not on any blood thinners or medicine for hypertension. 7. Opioid therapy is greater than 6 weeks; therefore, an opioid signed contract is on the chart. Risk assessment tool is low. Functional assessment is 48/70. 8. Recreational drug use, he denies. He is a current tobacco smoker of 1-pack of cigarettes a month. He does not drink alcohol. According to the prescription monitoring system, he is due to fill his medications this week, filling them in a timely fashion. We do closely monitor his opioids and benzodiazepines that we do both prescribe. His morphine milliequivalent according to the CDC guidelines is 25. There is a recent drug [facility] [address] [place] [address] PAIN MANAGEMENT CONSULTATION Name: KETTY LOZADA Room #: REG CLCorey Márquez#: [id number] Admission: 09/19/19 Attend Phys: Dorcas Abdullahi Discharge: Date of : 40 Report #: [id number] screen on the chart as well. PHYSICAL EXAMINATION: GENERAL: This is a well-developed, well-nourished black male who appears his stated age. He is alert and orientated. His affect is appropriate and his speech is fluent. Placing his pain score at 5/10. HEENT: Normocephalic, atraumatic. Extraocular eye muscles are intact. Sclerae are non-intrinsic. He is wearing a mask. NECK: Without adenopathy or JVD. MUSCULOSKELETAL: Upper extremity strength judged to be 5/5 with some decreased ability to raise his left shoulder. He has decreased range of motion and his low back pain that radiates down the L4-L5 and L5-S1 dermatomal distribution. His lower extremity strength judged to be 5/5 in all major muscle groups. IMPRESSION: 1. Chronic low back pain. 2. History of lumbar radiculopathy. 3. Complex medical management under terms of written opioid agreement. 4. History of prostate cancer. 5. Decreased range of motion in his left arm consistent with frozen shoulder. 6. Diabetes. We reviewed the fact that opiate medications are being used to provide analgesia adequate to support activities of daily living, not attempting to achieve a specific pain score on the 0-10 Visual Analog Scale. The current opiate medications are providing sufficient analgesia to allow the patient to participate in activities of daily living. The patient is not exhibiting any aberrant behavior suggestive of drug diversion. The patient is not having any adverse reactions to medications. The patient is not suffering from daytime somnolence or mental acuity changes. The patient is managing opiate-induced constipation with appropriate kbuw-zrm-bxephfl agents and dietary considerations. The patient was counseled on concern for caution with operating a motor vehicle while using opiate medications. PLAN: 1. We discussed treatment options with the patient today. We will continue to fill his hydrocodone 10/325, #75 for a 1-month supply as well as his alprazolam 0.5 mg t.i.d., #90. These will be sent electronically by Dr. Gunnar Ryder who is collaborating care with me. 2. We did discuss his ongoing constipation issues. He is unsure of the medicine that his urologist gave him. I encouraged him that maybe he could take it every other day, but to contact that doctor to see if he is able. I am sure his intent was not for him to have multiple bowel movements every day to keep him at home. It was his intent for the medicine to help prevent constipation. The patient verbalizes understanding. He will notify him and seek guidance. [facility] [address] [place] [address] PAIN MANAGEMENT CONSULTATION Name: KETTY LOZADA Room #: REG RONDA Márquez#: [id number] Admission: 09/19/19 Attend Phys: Dorcas Abdullahi Discharge: Date of : 40 Report #: [id number] 3. Appointment made prior to discharge today. The patient will return in 1 month. <ELECTRONICALLY SIGNED> By: Dorcas Abdullahi 09/19/19 1428 0850 0924 Dorcas Abdullahi /don
== END ==
LOC: PAIN 06:52
PROVIDERS: ATTEND Clinical Nurse Specialist Adult Health
DX: G89.29 Other chronic pain (principal); M54.5 Low back pain; M79.604 Pain in right leg; M79.605 Pain in left leg; E11.9 Type 2 diabetes mellitus without complications; Z88.8 Allergy status to other drugs, medicaments and biological substances; Z68.21 Body mass index [BMI] 21.0-21.9, adult; Z79.891 Long term (current) use of opiate analgesic; Z79.899 Other long term (current) drug therapy; Z85.46 Personal history of malignant neoplasm of prostate

== ENCOUNTER → 2019-10-17 | Outpatient (CLI) | payer MEDICARE, OTHER ==
[~2019-10-17] VITALS: Ht 185.4 cm; Wt 73.7 kg
[2019-10-17 08:01] VITALS: BP 138/73
--- NOTE | 2019-10-17 08:05 | NUR ---
Pain Clinic Assessment: 1. 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 Height: 6 ft. 1 in. 185.4 cm. Weight: 162.4 lb. oz. 73.664 kg. Patient's BMI: 21.4 3. Vital Signs: BP: 138/73 Pulse: 84 Resp: 16 Temp: 02 Sat: 98 ECG Mon: 4. Pain Intensity: 5 5. Fall Risk: Dizziness: N Needs help standing or walking: N Fallen in the last 3 months: N Fall risk comments: 6. Patient on Blood Thinner: None 7. History of Hypertension: N 8. Opioid Therapy greater than 6 weeks: Y Opiate Contract Signed: 02/04/17 9. Risk Assessment Tool Provided: LOW RISK 0 10. Functional Assessment Tool: 11. Recreational Drug Use: Past greater than 3 mos Drug Type: Tobacco Use: Current Every Day Smoker Tobacco Type: Amount or Packs/day: How Many Years: Alcohol Use: No Frequency: Quant:
--- NOTE | 2019-10-17 15:08 | HPC ---
[facility] [address] [address] PAIN MANAGEMENT CONSULTATION Name: KETTY LOZADA Room #: REG [facility] M..#: [id number] Admission: 10/17/19 Attend Phys: Dorcas Abdullahi Discharge: Date of : 40 Report #: [id number] THIS REPORT FOR: cc: Agapito Murphy MD, Kirk D. MD Hocker, Amanda CNS ~ CC: Marci Ryder MD DATE OF SERVICE: 10/17/2019 CHIEF COMPLAINT: Low back pain, lower extremity pain and paresthesias. HISTORY OF PRESENT ILLNESS: This is a 78-year-old gentleman who returns to the pain clinic today for a refill of his medications. Today, he is reporting a pain score of 5/10, which is a fairly average score for this gentleman. He states his pain is in his lower back that radiates down his right leg to his foot. At times, it is sharp and aching. It is worse with walking and standing for prolonged periods of time. He feels like sitting and elevating his legs, as well as his medication has been beneficial. Today, he is requesting refills of his medication. He denies any daytime somnolence or constipation. The patient reports that he recently returned from [place] where he had been there for 2 weeks. He is thinking about moving there because he did feel much better, at some days he did take only one pain pill and he feels that is because he was busy hiking and being more active. The patient states though he has not been there in the winter and he may change his mind if he was in the mountains during that time. He states he did go to several marijuana shops. He did not buy any. He states that it is very expensive and is not able to afford that in place of his opioid medications due to the cost factor. ALLERGIES: FLOMAX. CURRENT LIST OF MEDICATIONS: Hydrocodone 10/325 p.r.n., alprazolam 0.5 mg t.i.d. p.r.n., Trulicity, Neurontin, BuSpar, Glucotrol, albuterol, and Prilosec. PATIENT'S PQRS: 1. He has osteoarthritis in his hands, shoulders, and back. Denies any rheumatoid arthritis. 2. Height is 6 feet 1 inch, weight is 162, and BMI is 21. 3. Vital signs, 138/73, pulse is 84, respirations 16, oxygen sat is 98%. 4. Pain score is 5/10. 5. Denies dizziness, does not need help walking or standing, has not fallen in the last 3 months. 6. The patient is not on any blood thinners or medicine for hypertension. His opioid therapy is greater than 6 weeks; therefore, an opioid signed contract is on the chart. [address] [address] PAIN MANAGEMENT CONSULTATION Name: KETTY LOZADA Room #: REG CL Yulisa#: [id number] Admission: 10/17/19 Attend Phys: Dorcas Abdullahi Discharge: Date of : 40 Report #: [id number] 7. Risk assessment is low. Functional assessment is 48/70. 8. Recreational drug use in the past. He currently is a tobacco smoker and does not drink alcohol. According to the prescription monitoring system, the patient is filling appropriately in a timely fashion of his opioids. His morphine mEq according to the CDC guidelines is 25 morphine mEq per day. There is a drug screen on the chart and we will recheck that at his next visit. PHYSICAL EXAMINATION: GENERAL: This is an alert and orientated 78-year-old gentleman, who appears his stated age, placing his current pain score at 5/10. HEENT: Normocephalic, atraumatic. Extraocular eye muscles are intact. Sclerae are nonintrinsic. He is wearing a mask. NECK: Without adenopathy or JVD. MUSCULOSKELETAL: He has decreased range of motion in his lower back and pain that radiates down the L4-L5 and L5-S1 dermatomal distribution. His lower extremity strength judged to be 5/5 in all major muscle groups. He has a slightly antalgic gait. IMPRESSION: 1. Chronic low back pain. 2. History of lumbar radiculopathy. 3. Complex medical management under terms of written opioid agreement. 4. Diabetes. 5. History of prostate cancer. We reviewed the fact that opiate medications are being used to provide analgesia adequate to support activities of daily living, not attempting to achieve a specific pain score on the 0-10 Visual Analog Scale. The current opiate medications are providing sufficient analgesia to allow the patient to participate in activities of daily living. The patient is not exhibiting any aberrant behavior suggestive of drug diversion. The patient is not having any adverse reactions to medications. The patient is not suffering from daytime somnolence or mental acuity changes. The patient is managing opiate-induced constipation with appropriate tbxe-cgi-wgwihjw agents and dietary considerations. The patient was counseled on concern for caution with operating a motor vehicle while using opiate medications. PLAN: 1. We discussed treatment options with the patient today. Again, he feels his medications are beneficial allowing him to be as active as he is able. We will have Dr. Gunnar Ryder send electronically his hydrocodone 10, #75. It is a 1-month supply, as well as his alprazolam 0.5 mg t.i.d., #90. 2. We did discuss again medical marijuana. If he did move to [place] that may be an option for him, but the cost factor has prohibited at this time to switch [facility] [address] [place] [address] PAIN MANAGEMENT CONSULTATION Name: MARQUESKETTY LOPEZ Room #: REG RONDA Márquez#: [id number] Admission: 10/17/19 Attend Phys: Dorcas Abdullahi Discharge: Date of : 40 Report #: [id number] to medical marijuana as opposed to opioids, which are covered by insurance. 3. Dr. Gunnar Ryder collaborated care. We will check a random drug screen on this patient at his next visit in 1 month. <ELECTRONICALLY SIGNED> By: Dorcas Abdullahi 10/17/19 1508 0850 0950 Dorcas Abdullahi /don
== END ==
LOC: PAIN 06:47
PROVIDERS: ATTEND Clinical Nurse Specialist Adult Health
DX: M79.604 Pain in right leg (principal); M79.605 Pain in left leg; R20.2 Paresthesia of skin; E11.9 Type 2 diabetes mellitus without complications; Z85.46 Personal history of malignant neoplasm of prostate; Z87.39 Personal history of other diseases of the musculoskeletal system and connective tissue; Z88.8 Allergy status to other drugs, medicaments and biological substances; Z79.899 Other long term (current) drug therapy

== ENCOUNTER → 2019-11-14 | Outpatient (CLI) | payer MEDICARE, OTHER ==
[~2019-11-14] VITALS: Ht 185.4 cm; Wt 72.1 kg
[2019-11-14 07:58] VITALS: BP 145/71
--- NOTE | 2019-11-14 08:00 | NUR ---
Pain Clinic Assessment: 1. 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 Height: 6 ft. 1 in. 185.4 cm. Weight: 159.0 lb. oz. 72.122 kg. Patient's BMI: 21.0 3. Vital Signs: BP: 145/71 Pulse: 76 Resp: 18 Temp: 02 Sat: 98 ECG Mon: 4. Pain Intensity: 5 5. Fall Risk: Dizziness: N Needs help standing or walking: N Fallen in the last 3 months: N Fall risk comments: 6. Patient on Blood Thinner: None 7. History of Hypertension: N 8. Opioid Therapy greater than 6 weeks: Y Opiate Contract Signed: 02/04/17 9. Risk Assessment Tool Provided: LOW RISK 0 10. Functional Assessment Tool: 11. Recreational Drug Use: Past greater than 3 mos Drug Type: Tobacco Use: Current Every Day Smoker Tobacco Type: Amount or Packs/day: How Many Years: Alcohol Use: No Frequency: Quant:
--- NOTE | 2019-11-30 08:11 | HPC ---
[facility] [address] [address] PAIN MANAGEMENT CONSULTATION Name: KETTY LOZADA Room #: REG RONDA Salazar.#: [id number] Admission: 11/14/19 Attend Phys: Pari Ryder MD Discharge: Date of : 40 Report #: [id number] CC: Agapito Ryder DATE OF SERVICE: 11/14/2019 CHIEF COMPLAINT: "Still having some low back pain down into my foot." HISTORY: The patient is a 78-year-old gentleman who has been followed in the Pain Clinic because of chronic pain. In the past, he underwent epidural steroid injections. His pain persisted. We then proceeded to help control the pain with oral medications. Continues to have pain in his right leg with pain in the right foot down to his back. Rates his pain today as a 5/10. He describes it as sharp and aching. Prolonged standing, walking and cold weather has exacerbated his discomfort. Notes that his medication improves when he keeps his leg elevated. Sitting is helpful. Lying down is helpful. He also stays in the house and notes that warmth can be beneficial. He has returned today for renewal of his medication. He does not have any problems with the medications. He has taken them as prescribed. ALLERGIES: FLOMAX. CURRENT MEDICATIONS: Hydrocodone 10/325, alprazolam 0.5 mg t.i.d., Trulicity, Neurontin, BuSpar, Glucotrol, albuterol, Prilosec. PAIN CLINIC ASSESSMENT/PQRS: 1. History of osteoarthritis. The patient has some arthritic changes with complaints of arthritic problems in his hands, both left and right; both left and right shoulder and low back area. He denies rheumatoid arthritis. 2. Height 6 feet 1 inch, weight 159 pounds, BMI is 21. 3. Vital signs: Blood pressure 145/71, pulse 76, respiratory rate 18, room air saturation 98%. 4. Pain intensity, 5/10 in the lower back and the right leg in the L5-S1 distribution. 5. Fall history: The patient has not fallen since we saw him last. 6. Blood thinner. The patient is not on a blood thinning medication. 7. Opioid therapy greater than 6 weeks. The patient receives medication from the Pain Clinic. 8. Risk assessment tool, moderate for risk. 9. Functional assessment tool, 48/70. 10. Recreational drug use. The patient denies use of recreational drugs. 11. Tobacco: The patient smokes 1 pack of cigarettes per month. 12. Alcohol. The patient denies frequent use of alcoholic beverages, but uses them occasionally. PHYSICAL EXAMINATION: GENERAL: The patient is a well-developed, well-nourished black male, appears his stated age. He is alert and oriented x 3. His affect is appropriate. Speech is fluent. He is without his dog. He left the dog in his car. HEENT: The patient's extraocular eye muscles intact. Sclerae nonicteric. The patient is wearing a facial covering. NECK: Without adenopathy or JVD. HEART: Regular rate. ABDOMEN: Nontender. LUNGS: Clear. EXTREMITIES: Upper extremity muscle strength is judged to be 5-/5 for the major muscle groups in the upper extremity. Has some pain and discomfort in his left shoulder. Notes some decreased range of motion. Has some back pain in the L5-S1 dermatomal distribution. Has discomfort in the L4 dermatomal distribution. IMPRESSION: 1. Decreased range of motion left arm with clinical findings consistent with frozen shoulder. 2. Diabetes. 3. Asthma. 4. History of ulcers/Crohn's disease. 5. Prostate cancer. The patient has had an elevated PSA score and is being followed by his doctor. 6. Hiatal hernia. 7. Gastroesophageal surgery in 1990. RECOMMENDATIONS: We discussed treatment options with the patient. At this juncture, we will continue with his medications. He states he has taken the medication as prescribed. They enable him to become more active. He is not having any complication from the medications. He is able to think clearly. He feels that the anxiety medication is helpful. He continues to use alprazolam 0.5 mg. A script for hydrocodone 10 mg 1 p.o. b.i.d. has been written. The patient will call us if he has any problems. We would like to thank you for letting us participate in his care. We hope he continues to improve. <ELECTRONICALLY SIGNED> By: Pari Ryder MD 11/30/19 0811 0818 1241 Pari Ryder MD /nt
== END ==
LOC: PAIN 06:35
PROVIDERS: ATTEND Anesthesiology Pain Medicine
DX: M54.5 Low back pain (principal); E11.9 Type 2 diabetes mellitus without complications; J45.909 Unspecified asthma, uncomplicated; C61 Malignant neoplasm of prostate; K44.9 Diaphragmatic hernia without obstruction or gangrene; K21.9 Gastro-esophageal reflux disease without esophagitis; M25.511 Pain in right shoulder; K50.90 Crohn's disease, unspecified, without complications; Z87.11 Personal history of peptic ulcer disease; Z88.8 Allergy status to other drugs, medicaments and biological substances; Z79.899 Other long term (current) drug therapy

== ENCOUNTER → 2019-12-12 | Outpatient (CLI) | payer MEDICARE, OTHER ==
[~2019-12-12] VITALS: Ht 185.4 cm; Wt 74.8 kg
[~2019-12-12] MED LIST changes: +LIPITOR10 MG PO
--- NOTE | ~2019-12-12 | HPC ---
[facility] [address] [place] [address] PAIN MANAGEMENT CONSULTATION Name: KETTY LOZADA Room #: REG Corey M.Valerie.#: [id number] Admission: 12/12/19 Attend Phys: Pari Ryder MD Discharge: Date of : 40 Report #: [id number] CC: Agapito Ryder DATE OF SERVICE: 12/12/2019 PRIMARY CARE PHYSICIAN: Agapito Murphy MD CHIEF COMPLAINT: Low back and pain radiating down into the right leg and foot. HISTORY: The patient is a 78-year-old gentleman who has been followed in the pain clinic because of lumbar radiculopathy. Epidural steroid injections have been performed in the past. They were helpful. The patient continues to have pain, which continues to be problematic. Radiates down the lateral portion of his right leg and still involves his foot. He rates his pain today as a 5/10. He denies any new trauma. He feels that his medications continue to be helpful. Rates his pain overall as a 5/10. He has returned today for refill of his medications. He did note some increased pain and discomfort because of the recent cold weather. Sometimes finds pain, but more or less problematic when he is sitting and elevates his leg. Lying down could be helpful. Has used heat in the past. ALLERGIES: FLOMAX. CURRENT MEDICATIONS: Hydrocodone 10/325 one p.o. t.i.d., Glucotrol 5 mg b.i.d., Trulicity 0.7 mg, albuterol inhaler, Flonase 0.05% nasal spray, Crestor 40 mg, Prilosec 20 mg, potassium 20 mEq, Viagra p.r.n., buspirone 10 mg b.i.d., gabapentin 400 mg b.i.d., Xanax 0.5 mg t.i.d. PAIN CLINIC ASSESSMENT AND PQRS: 1. The patient is not being treated for rheumatoid arthritis. He does have some arthritic changes in his low back area. Has some discomfort in the left side of his shoulder because of limited movement. 2. Height 6 feet 1 inch, weight 164 pounds, BMI is 21. 3. Vital signs: Blood pressure 150/89, pulse rate 80, respiratory rate 18, room air saturation is 100%. 4. Pain intensity 06/16. 5. Fall risk. The patient has not fallen in the last 3 months. 6. Blood thinner. The patient is not on a blood thinning medication. 7. Hypertension. The patient is not being treated for hypertension. 8. Opioids greater than 6 weeks. The patient receives medication from the pain clinic. 9. Risk assessment tool, moderate for opioid use. 10. Functional assessment tool, 48 of 70. 11. Recreational drug use: The patient denies. 12. Tobacco: The patient smokes 1 pack of cigarettes per month. 13. Alcohol: The patient drinks alcoholic beverages only on occasion. PHYSICAL EXAMINATION: GENERAL: The patient is a well-developed, well-nourished black male, appears his stated age. He is alert and oriented x 3. His affect is appropriate. Speech is fluent. HEENT: Normocephalic, atraumatic. Extraocular eye muscles intact. Sclerae nonicteric. Mucous membranes moist. The patient is wearing a facial covering. NECK: Without adenopathy or JVD. HEART: Regular rate. ABDOMEN: Nontender. EXTREMITIES: Upper extremity muscle strength judged to be 5-/5 on the right side. Left side, 4+/5. The patient has some decreased ability to lift his left shoulder. He has decreasing range of motion. Somewhat behaves as a frozen shoulder. Has low back pain in the L5-S1 dermatomal distribution. IMPRESSION: 1. Decreased range of motion in the left arm with clinical findings consistent with frozen shoulder. 2. Diabetes. 3. Asthma. 4. History of ulcers/Crohn's disease. 5. Prostate cancer with elevated PSA score followed by his Urology doctor. 6. Hiatal hernia. 7. Gastroesophageal reflux surgery in 1990. RECOMMENDATIONS: We discussed treatment options with the patient. At this juncture, we will continue with his medications. A script for his medications of hydrocodone 10 mg one p.o. q. 6 hours p.r.n., total of 75 tablets per month has been provided. The patient also finds that the alprazolam continues to help with his anxiety. He takes one tablet 3 times a day. He will continue with his medications as prescribed. The patient is aware that opioid medications can become problematic for certain people. Some people have developed dependence/addiction. The patient states he is not having any signs of addiction. States he has taken the medication as prescribed. We would like to thank you for letting us participate in his care. He will follow up in the future as needed. By: [id number] Pari Ryder MD /XAVIER
[2019-12-12 08:04] VITALS: BP 150/89
--- NOTE | 2019-12-12 08:05 | NUR ---
Pain Clinic Assessment: 1. 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 Height: 6 ft. 1 in. 185.4 cm. Weight: 164.8 lb. oz. 74.753 kg. Patient's BMI: 21.7 3. Vital Signs: BP: 150/89 Pulse: 80 Resp: 18 Temp: 02 Sat: 100 ECG Mon: 4. Pain Intensity: 5 5. Fall Risk: Dizziness: N Needs help standing or walking: N Fallen in the last 3 months: N Fall risk comments: 6. Patient on Blood Thinner: None 7. History of Hypertension: N 8. Opioid Therapy greater than 6 weeks: Y Opiate Contract Signed: 02/04/17 9. Risk Assessment Tool Provided: LOW RISK 0 10. Functional Assessment Tool: 11. Recreational Drug Use: Past greater than 3 mos Drug Type: Tobacco Use: Current Every Day Smoker Tobacco Type: Cigarettes Amount or Packs/day: How Many Years: Alcohol Use: Yes Frequency: Special Occasions Quant: [place]
== END ==
LOC: PAIN 06:44
PROVIDERS: ATTEND Anesthesiology Pain Medicine
DX: M54.5 Low back pain (principal); E11.9 Type 2 diabetes mellitus without complications; J45.909 Unspecified asthma, uncomplicated; C61 Malignant neoplasm of prostate; K44.9 Diaphragmatic hernia without obstruction or gangrene; K21.9 Gastro-esophageal reflux disease without esophagitis; Z88.8 Allergy status to other drugs, medicaments and biological substances; Z79.899 Other long term (current) drug therapy

== ENCOUNTER → 2020-01-09 | Outpatient (CLI) | payer MEDICARE, OTHER ==
[~2020-01-09] VITALS: Ht 185.4 cm; Wt 76.2 kg
[~2020-01-09] MED LIST changes: +OZEMPIC1 MG/0.75 SUBQ
[2020-01-09 09:25] VITALS: BP 152/85
--- NOTE | 2020-01-09 09:30 | NUR ---
Pain Clinic Assessment: 1. 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 Height: 6 ft. 1 in. 185.4 cm. Weight: 168.0 lb. oz. 76.204 kg. Patient's BMI: 22.2 3. Vital Signs: BP: 152/85 Pulse: 81 Resp: 16 Temp: 02 Sat: ECG Mon: 4. Pain Intensity: 8 5. Fall Risk: Dizziness: N Needs help standing or walking: N Fallen in the last 3 months: N Fall risk comments: 6. Patient on Blood Thinner: None 7. History of Hypertension: N 8. Opioid Therapy greater than 6 weeks: Y Opiate Contract Signed: 02/04/17 9. Risk Assessment Tool Provided: LOW RISK 0 10. Functional Assessment Tool: 11. Recreational Drug Use: Past greater than 3 mos Drug Type: Tobacco Use: Current Every Day Smoker Tobacco Type: Cigarettes Amount or Packs/day: 1 CIG/DAY How Many Years: Alcohol Use: Yes Frequency: Special Occasions Quant: 1
--- NOTE | 2020-01-09 13:03 | HPC ---
[facility] [address] [place] [address] PAIN MANAGEMENT CONSULTATION Name: KETTY LOZADA Room #: REG [facility] M.R.#: [id number] Admission: 01/09/20 Attend Phys: Dorcas Abdullahi Discharge: Date of : 40 Report #: [id number] THIS REPORT FOR: cc: Agapito Murphy MD, Kirk D. MD Hocker,Dorcas SÁNCHEZ ~ CC: Dorcas Herr at [facility] Gustavo Ryder MD DATE OF SERVICE: 01/09/2020 CHIEF COMPLAINT: Low back pain radiating to his right leg and foot. HISTORY OF PRESENT ILLNESS: This is a pleasant 79-year-old gentleman who returns to the pain clinic today for refill of his medications. He is well known to the pain clinic and comes on a monthly basis for his opioids and his diazepam, which he does safeguard at all times and takes appropriately to help his ongoing low back pain that does radiate down his right leg. Today, he does report a slightly increase in pain at an 8/10. He is unsure if it is due to weather. The patient does report he is taking care of a sister that has been recently re-diagnosed with metastatic breast cancer and has been more active than normal. He does state the medications are beneficial as well as heat and lying down. He denies any daytime somnolence or constipation issues. ALLERGIES: FLOMAX. CURRENT LIST OF MEDICATIONS: Ozempic, hydrocodone 10/325 p.r.n., alprazolam 0.5 mg t.i.d., Lipitor, Neurontin, Glucotrol and Prilosec. PQRS: 1. He has osteoarthritis in his hands, shoulders and lower back. Denies any rheumatoid arthritis. 2. Height is 6 feet 1 inch, weight is 168, BMI is 22. 3. Vital signs 152/85, pulse is 81, respirations 16, oxygen sat is 98. 4. Pain score is 8/10. 5. Denies dizziness, does not need help walking or standing, has not fallen in the last 3 months. 6. The patient is not on any blood thinners or medicine for hypertension. 7. Opioid therapy is greater than 6 weeks; therefore, an opioid signed contract is on the chart. Risk assessment is low. Functional assessment is 48/70. 8. Recreational drug use in the past. He is a current smoker of one cigarette a day and does drink alcohol. According to the prescription monitoring system, he is filling appropriately. [address] [address] PAIN MANAGEMENT CONSULTATION Name: KETTY LOZADA Room #: REG [facility] M.R.#: [id number] Admission: 01/09/20 Attend Phys: Dorcas Abdullahi Discharge: Date of : 40 Report #: [id number] His morphine milliequivalent per day is 25 MME and is stable on his benzodiazepine as well. We will collect a random drug screen on him today. We attempted last month, but the urine did spill, so we are recollecting this today. PHYSICAL EXAMINATION: GENERAL: This is a well-developed, well-nourished black gentleman who appears his stated age. He is alert and orientated, placing his current pain score at 8/10. His affect is appropriate. Speech is fluent. HEENT: Normocephalic, atraumatic. Extraocular eye muscles are intact. Mucous membranes are moist. Sclerae are nonintrinsic. He is wearing a mask. NECK: Without adenopathy or JVD. MUSCULOSKELETAL: He has decreased range of motion in his left shoulder. His low back pain following the L5-S1 dermatomal distribution. His lower extremity muscle strength is 4/5 on the left and 5/5 on the right. IMPRESSION: 1. 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 2. Diabetes with a new medication of Ozempic. 3. History of ulcers and Crohn's disease. 4. History of prostate cancer. 5. Opioid medication management under written agreement. 6. Low back pain with lumbar radiculopathy. 7. Anxiety. We reviewed the fact that opiate medications are being used to provide analgesia adequate to support activities of daily living, not attempting to achieve a specific pain score on the 0-10 Visual Analog Scale. The current opiate medications are providing sufficient analgesia to allow the patient to participate in activities of daily living. The patient is not exhibiting any aberrant behavior suggestive of drug diversion. The patient is not having any adverse reactions to medications. The patient is not suffering from daytime somnolence or mental acuity changes. The patient is managing opiate-induced constipation with appropriate [id number]-mjqntec agents and dietary considerations. The patient was counseled on concern for caution with operating a motor vehicle while using opiate medications. PLAN: 1. We discussed treatment options with the patient today. Overall, he feels the medications are very beneficial despite his higher pain score today. He has been helping care for his sister, therefore he is more active that has increased his pain that he is utilizing heat and lying down when available. We will continue him on his hydrocodone 10/325, #75. These will be sent electronically by Dr. Ryder as well as his alprazolam 0.5 mg tablets, #90. 2. The patient does report a new primary care doctor, Dr. Reza at the [place] has started him on Ozempic due to some side effects he was experiencing with the [facility] [address] [place] [address] PAIN MANAGEMENT CONSULTATION Name: KETTY LOZADA Room #: DONALD Márquez#: [id number] Admission: 01/09/20 Attend Phys: Dorcas Abdullahi Discharge: Date of : 40 Report #: [id number] skin issues on Trulicity. 3. Thank you for letting us take care of him today. The patient is seen today in collaboration with Dr. Ryder. <ELECTRONICALLY SIGNED> By: Dorcas Abdullahi 01/09/20 1303 [id number] Dorcas Abdullahi /nt
== END ==
LOC: PAIN 06:40
PROVIDERS: ATTEND Clinical Nurse Specialist Adult Health
DX: M75.02 Adhesive capsulitis of left shoulder (principal); E11.9 Type 2 diabetes mellitus without complications; M54.16 Radiculopathy, lumbar region; F41.9 Anxiety disorder, unspecified; Z79.84 Long term (current) use of oral hypoglycemic drugs; Z85.46 Personal history of malignant neoplasm of prostate; Z79.891 Long term (current) use of opiate analgesic

== ENCOUNTER → 2020-02-13 | Outpatient (CLI) | payer MEDICARE, OTHER ==
[~2020-02-13] VITALS: Ht 185.4 cm; Wt 75.4 kg
[2020-02-13 08:33] VITALS: BP 137/76
--- NOTE | 2020-02-13 08:51 | NUR ---
Pain Clinic Assessment: 1. 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 Height: 6 ft. 1 in. 185.4 cm. Weight: 166.2 lb. oz. 75.388 kg. Patient's BMI: 21.9 3. Vital Signs: BP: 137/76 Pulse: 92 Resp: 14 Temp: 02 Sat: 100 ECG Mon: 4. Pain Intensity: 8 TO 9 5. Fall Risk: Dizziness: N Needs help standing or walking: N Fallen in the last 3 months: N Fall risk comments: 6. Patient on Blood Thinner: None 7. History of Hypertension: N 8. Opioid Therapy greater than 6 weeks: Y Opiate Contract Signed: 02/04/17 9. Risk Assessment Tool Provided: LOW RISK 0 10. Functional Assessment Tool: 11. Recreational Drug Use: Past greater than 3 mos Drug Type: MARIJUANA Tobacco Use: Current Every Day Smoker Tobacco Type: Cigarettes Amount or Packs/day: 1/MONTH How Many Years: Alcohol Use: No Frequency: Quant: NEW YEARS RESOLUTION, HE QUIT DRINKING AND MARIJUANA PER PT
== END ==
LOC: PAIN 02-06 13:58
PROVIDERS: ATTEND Anesthesiology Pain Medicine
DX: M79.671 Pain in right foot (principal); M54.16 Radiculopathy, lumbar region; F41.9 Anxiety disorder, unspecified; Z85.46 Personal history of malignant neoplasm of prostate; Z87.11 Personal history of peptic ulcer disease; Z87.19 Personal history of other diseases of the digestive system; Z88.8 Allergy status to other drugs, medicaments and biological substances; Z79.899 Other long term (current) drug therapy